=== PATIENT | female | born 1950 | race Caucasian/White ===

== ENCOUNTER 2019-01-08 17:58 | Emergency (ER) | payer MEDICARE, OTHER ==
[~2019-01-08] VITALS: Ht 165.1 cm; Wt 89.8 kg
[~2019-01-08 17:58] MED LIST: CLIN150C2 PO; MECL-106 PO; SULF1TAB35 PO
--- NOTE | 2019-01-08 18:12 | ED Cardiac General ---
History of Present Illness General Stated Complaint: DIZZINESS,HEART PALPITATIONS Source: patient, EMS History of Present Illness Date Seen by Provider: Jan 08, 2019 Time Seen by Provider: 17:59 Initial Comments PT ARRIVES VIA EMS FROM [facility] C/O DIZZINESS AND PALPITATIONS SINCE THIS AFTERNOON NO CHEST PAIN NO SHORTNESS OF BREATH NO SWELLING IN LEGS / FEET C/O SLIGHT NAUSEA AND SLIGHTLY "FOGGY" VISION NO PARESTHESIAS OR MOTOR DEFICITS STARTING TO GET A SLIGHT HEADACHE--STATES SHE HAS CHRONIC HEADACHES BP 210/100 AT URGENT CARE WAS GIVEN 324 MG ASPIRIN AT URGENT CARE BP WAS 225/109, PULSE 88 WITH NSR, O2 SAT 99% ON ROOM AIR FOR EMS PT HAS HISTORY OF HTN, AND HAS BEEN PRESCRIBED MEDICATION IN THE PAST, BUT NOT TAKEN ANY FOR AT LEAST 2 YEARS "HASN'T SEEN A DR IN 2 YEARS" PER PT. STATES SHE USED TO GO TO THE [facility] IN [place], [place]. DOES NOT GIVE A REASON WHY SHE QUIT GOING. "JUST DIDN'T THINK I NEEDED TO" PCP: NONE Allergies and Home Medications Allergies Coded Allergies: No Known Drug Allergies (Unverified , 01/09/15) Home Medications Meclizine HCl 25 Mg Tablet, 25 MG PO Q8H Prescribed by: WILIAN PROCTOR on 11/17/15 1621 Metoprolol/Hydrochlorothiazide 1 Each Tablet, 1 EACH PO BID Prescribed by: BRADY PENA on 01/08/19 1931 Patient Home Medication List Home Medication List Reviewed: Yes Review of Systems Review of Systems Constitutional: see HPI, dizziness EENTM: See HPI Respiratory: No Symptoms Reported Cardiovascular: See HPI; Denies Chest Pain, Denies Edema, Denies Irregular Heart Rate, Denies Lightheadedness; Palpitations; Denies Syncope Gastrointestinal: See HPI, Nausea; Denies Vomiting Genitourinary: No Symptoms Reported Musculoskeletal: no symptoms reported Skin: no symptoms reported Psychiatric/Neurological: See HPI, Headache; Denies Numbness, Denies Paresthesia, Denies Seizure, Denies Tingling, Denies Tremors, Denies Weakness Endocrine: No Symptoms Reported Hematologic/Lymphatic: No Symptoms Reported Past Qfxjktw-Xzpjks-Zlszwe Hx Patient Social History Alcohol Use: Denies Use Recreational Drug Use: No Smoking Status: Never a Smoker Recent Foreign Travel: No Contact w/Someone Who Travel: No Past Medical History Surgeries: Yes ( X 3; HYST/BSO; STOMACH STAPLING / BARIATRIC SURGERY) Abdominal, Appendectomy, Section, Gallbladder, Hysterectomy, Oophor ectomy Respiratory: No Cardiac: Yes Hypertension Neurological: Yes Headaches /Migraines 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 oz. 80.627375on; BMI Method:Stated General Appearance: No Apparent Distress, Obese HEENT: PERRL/EOMI Neck: Full Range of Motion, Normal Inspection, Non Tender, Supple; No Carotid Bruit, No JVD Respiratory: Normal Breath Sounds, No Accessory Muscle Use, No Respiratory Distress Cardiovascular: Regular Rate, Rhythm, No Edema, No JVD, No Murmur, Normal Peripheral Pulses Gastrointestinal: Non Tender, Soft Extremity: Normal Capillary Refill, Normal Inspection, Normal Range of Motion, Non Tender, No Calf Tenderness, No Pedal Edema Neurologic/Psychiatric: Alert, Oriented x3, No Motor/Sensory Deficits, Normal 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, 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 Norm as Tested Skin: Normal Color, Warm/Dry Progress/Results/Core Measures Results/Orders Lab Results Laboratory Tests Test 01/08/19 18:06 01/08/19 18:48 Range/Units White Blood Count 5.5 4.3-11.0 10^3/uL Red Blood Count 4.09 L 4.35-5.85 10^6/uL Hemoglobin 11.8 11.5-16.0 G/DL Hematocrit 37 35-52 % Mean Corpuscular Volume 91 80-99 FL Mean Corpuscular Hemoglobin 29 25-34 PG Mean Corpuscular Hemoglobin Concent 32 32-36 G/DL Red Cell Distribution Width 15.3 H 10.0-14.5 % Platelet Count 349 130-400 10^3/uL Mean Platelet Volume 9.7 7.4-10.4 FL Neutrophils (%) (Auto) 61 42-75 % Lymphocytes (%) (Auto) 28 12-44 % Monocytes (%) (Auto) 8 0-12 % Eosinophils (%) (Auto) 2 0-10 % Basophils (%) (Auto) 1 0-10 % Neutrophils # (Auto) 3.4 1.8-7.8 X 10^3 Lymphocytes # (Auto) 1.6 1.0-4.0 X 10^3 Monocytes # (Auto) 0.4 0.0-1.0 X 10^3 Eosinophils # (Auto) 0.1 0.0-0.3 10^3/uL Basophils # (Auto) 0.0 0.0-0.1 10^3/uL Prothrombin Time 13.0 12.2-14.7 SEC INR Comment 1.0 0.8-1.4 Activated Partial Thromboplast Time 32 24-35 SEC Sodium Level 140 135-145 MMOL/L Potassium Level 3.0 L 3.6-5.0 MMOL/L Chloride Level 101 98-107 MMOL/L Carbon Dioxide Level 26 21-32 MMOL/L Anion Gap 13 5-14 MMOL/L Blood Urea Nitrogen 7 7-18 MG/DL Creatinine 0.73 0.60-1.30 MG/DL Estimat Glomerular Filtration Rate > 60 BUN/Creatinine Ratio 10 Glucose Level 111 H 70-105 MG/DL Calcium Level 9.7 8.5-10.1 MG/DL Corrected Calcium 9.4 8.5-10.1 MG/DL Magnesium Level 1.7 L 1.8-2.4 MG/DL Total Bilirubin 0.2 0.1-1.0 MG/DL Aspartate Amino Transf (AST/SGOT) 22 5-34 U/L Alanine Aminotransferase (ALT/SGPT) 14 0-55 U/L Alkaline Phosphatase 102 40-136 U/L Myoglobin 51.8 10.0-92.0 NG/ML Troponin I < 0.028 <0.028 NG/ML B-Type Natriuretic Peptide 68.4 <100.0 PG/ML Total Protein 7.8 6.4-8.2 GM/DL Albumin 4.4 3.2-4.5 GM/DL Amylase Level 51 25-125 U/L Lipase 26 8-78 U/L Urine Color YELLOW Urine Clarity CLEAR Urine pH 7 5-9 Urine Specific [place] 1.005 L 1.016-1.022 Urine Protein NEGATIVE NEGATIVE Urine Glucose (UA) NEGATIVE NEGATIVE Urine Ketones NEGATIVE NEGATIVE Urine Nitrite NEGATIVE NEGATIVE Urine Bilirubin NEGATIVE NEGATIVE Urine Urobilinogen NORMAL NORMAL MG/DL Urine Leukocyte Esterase NEGATIVE NEGATIVE Urine RBC (Auto) NEGATIVE NEGATIVE Urine RBC NONE /HPF Urine WBC NONE /HPF Urine Squamous Epithelial Cells RARE /HPF Urine Crystals NONE /LPF Urine Bacteria NEGATIVE /HPF Urine Casts NONE /LPF Urine Mucus NEGATIVE /LPF Urine Culture Indicated NO My Orders Orders - BRADY PENA DO Cardiac Profile 1 (01/08/19 17:59) Comprehensive Metabolic Panel (01/08/19 17:59) Myoglobin Serum (01/08/19 17:59) Protime With Inr (01/08/19 17:59) Partial Thromboplastin Time (01/08/19 17:59) O2 (01/08/19 17:59) Monitor-Rhythm Ecg Trace Only (01/08/19 17:59) Lipid Panel (01/09/19 06:00) Ed Iv/Invasive Line Start (01/08/19 17:59) Lipase (01/08/19 17:59) Amylase (01/08/19 17:59) BNP (01/08/19 17:59) Cbc With Automated Diff (01/08/19 17:59) Magnesium (01/08/19 17:59) Chest 1 View, Ap/Pa Only (01/08/19 17:59) Ekg Tracing (01/08/19 17:59) Nitroglycerin Ointment (Nitrobid Ointme (01/08/19 18:15) Acetaminophen Tablet (Tylenol Tablet) (01/08/19 18:15) Ekg Tracing (01/08/19 18:20) Potassium Chloride (Tablet) (Klor Con Ta (01/08/19 19:00) Magnesium 1 Gm/100 Ml Ivpb (Magnesium Cosme (01/08/19 19:00) Labetalol Injection (Normodyne Injection (01/08/19 19:00) Ua Culture If Indicated (01/08/19 18:48) Ondansetron Injection (Zofran Injectio (01/08/19 19:00) Medications Given in ED Current Medications Medications Dose Ordered Sig/Hammad Route Start Time Stop Time Status Last Admin Dose Admin Acetaminophen 1,000 mg ONCE ONCE PO 01/08/19 18:15 01/08/19 18:16 DC 01/08/19 18:16 1,000 MG Labetalol HCl 20 mg ONCE ONCE IV 01/08/19 19:00 01/08/19 19:01 DC 01/08/19 18:58 20 MG Magnesium Sulfate/ Dextrose 100 ml @ 100 mls/hr ONCE ONCE IV 01/08/19 19:00 01/08/19 19:59 DC 01/08/19 18:59 100 MLS/HR Nitroglycerin 1 inch ONCE ONCE TOP 01/08/19 18:15 01/08/19 18:16 DC 01/08/19 18:17 1 INCH Ondansetron HCl 4 mg ONCE ONCE IVP 01/08/19 19:00 01/08/19 19:01 DC 01/08/19 18:58 4 MG Potassium Chloride 20 meq ONCE ONCE PO 01/08/19 19:00 01/08/19 19:01 DC 01/08/19 18:58 20 MEQ Vital Signs/I&O 01/08/19 18:04 Temp 97.9 Pulse 92 Resp 17 B/P (MAP) 212/105 (140) Pulse Ox 100 O2 Delivery Room Air Progress Progress Note : Progress Note BP DOWN WITH MEDICATION--DOWN TO 140'S/90'S PT ASYMPTOMATIC AT THIS TIME, HEADACHE GONE Initial ECG Impression Date: Jan 08, 2019 Initial ECG Impression Time: 18:06 Initial ECG Rate: 91 Initial ECG Rhythm: Normal Sinus Initial ECG Impression: Nonspecific Changes EKG : EKG Time: 18:23 Rate: 86 Rhythm: Normal Sinus ECG Comparisson: Unchanged Diagnostic Imaging Comments CXR--NO ACUTE PROCESS, PER RADIOLOGIST REPORT AT 1849 Reviewed: Reviewed by Me Departure Impression Primary Impression: Uncontrolled hypertension Additional Impressions: Hypomagnesemia Hypokalemia Disposition: 01 HOME, SELF-CARE Condition: Improved Departure-Patient Inst. Referrals: NO,LOCAL PHYSICIAN (PCP/Family) Primary Care Physician Patient Instructions: DASH Diet, High Blood Pressure (DC) Add. Discharge Instructions: ESTABLISH WITH LOCAL DR OF CHOICE, OR YOU MAY GO BACK TO [facility] IN [place]--FOLLOW UP THIS WEEK FOR FURTHER CARE RETURN TO ER IF WORSE Scripts Metoprolol/Hydrochlorothiazide (Metoprolol-Hctz 50-25 mg Tab) 1 Each Tablet 1 EACH PO BID, #30 TAB Prov: BRADY PENA DO 01/08/19 Work/School Note: Local Medical Staff Listing BRADY PENA DO Jan 08, 2019 18:12
[2019-01-08 18:13] LABS: BASOPHILS % (AUTO) 1 % (0-10); EOSINOPHILS # (AUTO) 0.1 10^3/uL (0.0-0.3); EOSINOPHILS % (AUTO) 2 % (0-10); HEMATOCRIT 37 % (35-52); HEMOGLOBIN 11.8 G/DL (11.5-16.0); LYMPHOCYTES # (AUTO) 1.6 X 10^3 (1.0-4.0); LYMPHOCYTES % (AUTO) 28 % (12-44); MEAN CORPUSCULAR HEMOGLOBIN 29 PG (25-34); MEAN CORPUSCULAR HGB CONC 32 G/DL (32-36); MEAN CORPUSCULAR VOLUME 91 FL (80-99); MEAN PLATELET VOLUME 9.7 FL (7.4-10.4); MONOCYTES # (AUTO) 0.4 X 10^3 (0.0-1.0); MONOCYTES % (AUTO) 8 % (0-12); NEUTROPHILS # (AUTO) 3.4 X 10^3 (1.8-7.8); NEUTROPHILS % (AUTO) 61 % (42-75); PLATELET COUNT 349 10^3/uL (130-400); RED CELL DISTRIBUTION WIDTH 15.3 % (10.0-14.5); WHITE BLOOD COUNT 5.5 10^3/uL (4.3-11.0)
[2019-01-08] MEDS ORDERED: ACETAMINOPHEN 500 MG TAB (TYLENOL) PO ONE (18:15)
[2019-01-08] MEDS ORDERED: NITROGLYCERIN 2% OINT 1 GM UNIT DOSE PACKET TOP ONE (18:15)
[2019-01-08 18:32] LABS: ALANINE AMINOTRANSFERASE 14 U/L (0-55); ALBUMIN 4.4 GM/DL (3.2-4.5); ALKALINE PHOSPHATASE 102 U/L (40-136); AMYLASE 51 U/L (25-125); BILIRUBIN,TOTAL 0.2 MG/DL (0.1-1.0); BUN/CREATININE RATIO 10; CALCIUM 9.7 MG/DL (8.5-10.1); CARBON DIOXIDE 26 MMOL/L (21-32); CHLORIDE 101 MMOL/L (98-107); CREATININE SERUM 0.73 MG/DL (0.60-1.30); GFR ESTIMATED > 60; GLUCOSE 111 MG/DL (70-105); LIPASE 26 U/L (8-78); MAGNESIUM 1.7 MG/DL (1.8-2.4); SODIUM 140 MMOL/L (135-145); TOTAL PROTEIN 7.8 GM/DL (6.4-8.2)
--- NOTE | 2019-01-08 18:45 | Diagnostic Imaging Report ---
INDICATION: Heart palpitations. TIME OF EXAM: 06:33 p.m. COMPARISON: No prior studies are available for comparison. FINDINGS: The heart size is normal. The pulmonary vascularity is unremarkable. The lungs are clear. No infiltrate, effusion, or pneumothorax is detected. IMPRESSION: No acute cardiopulmonary process is detected. Dictated by: Dictated on workstation # [id number]
--- NOTE | 2019-01-08 18:45 | NUR ---
Recieved pt report from SERGIO Tovar to assume care of pt @ this time.
[2019-01-08 18:57] LABS: BILIRUBIN,URINE NEGATIVE (NEGATIVE); CLARITY,URINE CLEAR; COLOR,URINE YELLOW; GLUCOSE, URINE (UA) NEGATIVE (NEGATIVE); KETONES,URINE NEGATIVE (NEGATIVE); LEUKOCYTE ESTERASE ,URINE NEGATIVE (NEGATIVE); NITRITE,URINE NEGATIVE (NEGATIVE); PH,URINE 7 (5-9); PROTEIN,URINE NEGATIVE (NEGATIVE); UROBILINOGEN,URINE NORMAL (NORMAL)
[2019-01-08] MEDS ORDERED: LABETALOL HCL 20 MG/4 ML VIAL IV ONE (19:00)
[2019-01-08] MEDS ORDERED: KCL 10 MEQ TAB (MICRO K) PO ONE (19:00)
[2019-01-08] MEDS ORDERED: MAGNESIUM 1 GM/100 ML IVPB 100 ML IV ONE (19:00)
[2019-01-08] MEDS ORDERED: ONDANSETRON 4 MG/2 ML (SDV) Z0FRAN IVP ONE (19:00)
[2019-01-08 19:04] LABS: BACTERIA,URINE NEGATIVE /HPF; SQUAMOUS EPITHELIAL CELL,UR RARE /HPF
[2019-01-08] MEDS ORDERED: METO1TAB10 PO (19:31)
[2019-01-08 20:13] VITALS: BP 146/95
== END 2019-01-08 20:13 | disposition home or self-care (01) ==
LOC: EDUNIT# 17:58 → ER 17:59
DX: I10 Essential (primary) hypertension (principal); E83.42 Hypomagnesemia; E87.6 Hypokalemia; G43.909 Migraine, unspecified, not intractable, without status migrainosus; Z91.14 Patient's other noncompliance with medication regimen; Z90.49 Acquired absence of other specified parts of digestive tract; Z90.710 Acquired absence of both cervix and uterus; Z90.722 Acquired absence of ovaries, bilateral; Z98.84 Bariatric surgery status
CPT/HCPCS: 36415; 71045; 80053; 81000; 82150; 83690; 83735; 83874; 83880; 84484; 85025; 85610; 85730; 93005; 93041; 96365; 96375

== ENCOUNTER 2019-01-09 18:01 | Observation (INO) | payer MEDICARE, OTHER ==
[~2019-01-09] VITALS: Ht 165.1 cm; Wt 95.8 kg
[~2019-01-09 18:01] MED LIST changes: +METO1TAB10 PO
[2019-01-09] MEDS ORDERED: ONDANSETRON 4 MG/2 ML (SDV) Z0FRAN IVP ONE (18:15)
[2019-01-09] MEDS ORDERED: NITROGLYCERIN 2% OINT 1 GM UNIT DOSE PACKET TOP ONE (18:15)
[2019-01-09] MEDS ORDERED: LABETALOL HCL 20 MG/4 ML VIAL IV ONE (18:15)
--- NOTE | 2019-01-09 18:17 | ED Cardiac General ---
History of Present Illness General Chief Complaint: Cardiac/General Problems Stated Complaint: HIGH BP Nursing Triage Note: PT STATES SHE HAS HTN BUT DOES NOT TAKE HER MEDICATION PRESCRIBED. PT WAS SEEN YESTERDAY AND PRESCRIBED MEDICATION. PT STATES HANDS AND FEET ARE CRAMPING. PT STATES NAUSEA. Source: patient History of Present Illness Date Seen by Provider: Jan 09, 2019 Time Seen by Provider: 18:50 Initial Comments PT ARRIVES VIA POV FROM HOME C/O ELEVATED BLOOD PRESSURE--WAS 228/134 AT HOME C/O DIZZINESS C/O NAUSEA, NO VOMITING NO CHEST PAIN NO SHORTNESS OF BREATH NO PALPITATIONS NO SWEATS NO SWELLING IN LEGS/ FEET HANDS AND FEET ARE CRAMPING AND "DRAWING UP" C/O MILD HEADACHE EARLIER--WENT AWAY WITH 2 TYLENOL + BENADRYL NO VISION CHANGES TODAY NO PARESTHESIAS OR MOTOR DEFICITS PT HAS LONG HISTORY OF HTN AND OVER 2 YEARS AGO, JUST DECIDED TO QUIT TAKING HER BP MEDICATION AND QUIT GOING TO THE DR--NO PARTICULAR REASON "JUST DIDN'T THINK I NEEDED TO" PT WAS IN ER LAST PM FOR SAME, AND WAS GIVEN MEDICATIONS AND BP DOWN SIGNIFICANTLY AND PT WAS SYMPTOM-FREE PT WAS SENT HOME WITH RX FOR METOPROLOL + HCTZ--STATES SHE TOOK FIRST DOSE AROUND 1030 THIS AM STATES SHE FELT GREAT WHEN SHE LEFT LAST NIGHT AND FELT GREAT THIS AM, THEN STARTED FEELING BAD AROUND 1430 TODAY. PCP: [facility] Allergies and Home Medications Allergies Coded Allergies: No Known Drug Allergies (Unverified , 01/09/15) Home Medications Meclizine HCl 25 Mg Tablet, 25 MG PO Q8H Prescribed by: WILIAN PROCTOR on 11/17/15 1621 Metoprolol/Hydrochlorothiazide 1 Each Tablet, 1 EACH PO BID Prescribed by: BRADY PENA on 01/08/19 1931 Patient Home Medication List Home Medication List Reviewed: Yes Review of Systems Review of Systems Constitutional: see HPI, dizziness, malaise EENTM: No Symptoms Reported; No Blurred Vision Respiratory: No Symptoms Reported; Denies Shortness of Air Cardiovascular: Denies Chest Pain; Edema (AT TIMES, BUT NOT NOW. ); Denies Irregular Heart Rate; Lightheadedness; Denies Palpitations, Denies Syncope Gastrointestinal: See HPI; Denies Abdominal Pain; Nausea; Denies Vomiting Genitourinary: No Symptoms Reported Musculoskeletal: no symptoms reported Skin: no symptoms reported Psychiatric/Neurological: See HPI, Headache; Denies Numbness, Denies Paresthesia, Denies Seizure, Denies Tingling, Denies Tremors, Denies Weakness Endocrine: No Symptoms Reported Hematologic/Lymphatic: No Symptoms Reported Past Fsscuim-Nqaxnd-Joonuj Hx Past Med/Social Hx: Reviewed and Corrections made Patient Social History Alcohol Use: Denies Use Recreational Drug Use: No Smoking Status: Never a Smoker 2nd Hand Smoke Exposure: No Recent Foreign Travel: No Contact w/Someone Who Travel: No Recent Infectious Disease Expo: No Recent Hopitalizations: No Physical Abuse: No Sexual Abuse: No Mistreated: No Fear: No Seasonal Allergies Seasonal Allergies: No Past Medical History Surgeries: Yes ( X 3; HYST/BSO; STOMACH STAPLING / BARIATRIC SURGERY) Abdominal, Appendectomy, Section, Gallbladder, Hysterectomy, Oophorectomy Respiratory: No Cardiac: Yes Hypertension Neurological: Yes Headaches /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 oz. 89.760122wc; 30.18 BMI Method:Stated General Appearance: No Apparent Distress, WD/WN HEENT: PERRL/EOMI, TMs Normal, Normal ENT Inspection, Pharynx Normal, Moist Mucous Membranes Neck: Full Range of Motion, Normal Inspection, Non Tender, Supple; No Carotid Bruit, No JVD Respiratory: Normal Breath Sounds, No Accessory Muscle Use, No Respiratory Distress Cardiovascular: Regular Rate, Rhythm, No Edema, No JVD, No Murmur, Normal Peripheral Pulses Gastrointestinal: No Pulsatile Mass, Non Tender, Soft Extremity: Normal Capillary Refill, Normal Inspection, Normal Range of Motion, Non Tender, No Calf Tenderness, No Pedal Edema Neurologic/Psychiatric: Alert, Oriented x3, No Motor/Sensory Deficits, veneer layer II- XII Norm as Tested, Other (MILDLY ANXIOUS) Skin: Normal Color, Warm/Dry Progress/Results/Core Measures Results/Orders Lab Results Laboratory Tests Test 01/09/19 18:15 Range/Units White Blood Count 7.3 4.3-11.0 10^3/uL Red Blood Count 4.26 L 4.35-5.85 10^6/uL Hemoglobin 12.4 11.5-16.0 G/DL Hematocrit 39 35-52 % Mean Corpuscular Volume 91 80-99 FL Mean Corpuscular Hemoglobin 29 25-34 PG Mean Corpuscular Hemoglobin Concent 32 32-36 G/DL Red Cell Distribution Width 15.1 H 10.0-14.5 % Platelet Count 353 130-400 10^3/uL Mean Platelet Volume 10.0 7.4-10.4 FL Neutrophils (%) (Auto) 66 42-75 % Lymphocytes (%) (Auto) 24 12-44 % Monocytes (%) (Auto) 7 0-12 % Eosinophils (%) (Auto) 3 0-10 % Basophils (%) (Auto) 1 0-10 % Neutrophils # (Auto) 4.8 1.8-7.8 X 10^3 Lymphocytes # (Auto) 1.8 1.0-4.0 X 10^3 Monocytes # (Auto) 0.5 0.0-1.0 X 10^3 Eosinophils # (Auto) 0.2 0.0-0.3 10^3/uL Basophils # (Auto) 0.1 0.0-0.1 10^3/uL Prothrombin Time 12.2 12.2-14.7 SEC INR Comment 0.9 0.8-1.4 Activated Partial Thromboplast Time 30 24-35 SEC Sodium Level 138 135-145 MMOL/L Potassium Level 3.3 L 3.6-5.0 MMOL/L Chloride Level 98 98-107 MMOL/L Carbon Dioxide Level 27 21-32 MMOL/L Anion Gap 13 5-14 MMOL/L Blood Urea Nitrogen 7 7-18 MG/DL Creatinine 0.80 0.60-1.30 MG/DL Estimat Glomerular Filtration Rate > 60 BUN/Creatinine Ratio 9 Glucose Level 119 H 70-105 MG/DL Calcium Level 10.4 H 8.5-10.1 MG/DL Corrected Calcium 10.0 8.5-10.1 MG/DL Magnesium Level 2.0 1.8-2.4 MG/DL Total Bilirubin 0.2 0.1-1.0 MG/DL Aspartate Amino Transf (AST/SGOT) 20 5-34 U/L Alanine Aminotransferase (ALT/SGPT) 14 0-55 U/L Alkaline Phosphatase 104 40-136 U/L Troponin I < 0.028 <0.028 NG/ML B-Type Natriuretic Peptide 99.5 <100.0 PG/ML Total Protein 8.0 6.4-8.2 GM/DL Albumin 4.5 3.2-4.5 GM/DL My Orders Orders - BRADY PENA DO Ed Iv/Invasive Line Start (01/09/19 18:10) Ekg Tracing (01/09/19 18:10) Monitor-Rhythm Ecg Trace Only (01/09/19 18:10) Ct Head Wo-R/O Stroke (01/09/19 18:10) BNP (01/09/19 18:10) Cbc With Automated Diff (01/09/19 18:10) Comprehensive Metabolic Panel (01/09/19 18:10) Magnesium (01/09/19 18:10) Protime With Inr (01/09/19 18:10) Partial Thromboplastin Time (01/09/19 18:10) Troponin I (01/09/19 18:10) Ondansetron Injection (Zofran Injectio (01/09/19 18:15) Nitroglycerin Ointment (Nitrobid Ointme (01/09/19 18:15) Labetalol Injection (Normodyne Injection (01/09/19 18:15) Potassium Chloride (Tablet) (Klor Con Ta (01/09/19 19:00) Ct Angio Head/Neck (01/09/19 19:06) Hydralazine Injection (Apresoline Inject (01/09/19 19:30) Iohexol Injection (Omnipaque 350 Mg/Ml 1 (01/09/19 19:45) Received Contrast (Hold Metformin- Contr (01/09/19 19:45) Ns (Ivpb) (Sodium Chloride 0.9% Ivpb Bag (01/09/19 19:45) Medications Given in ED Current Medications Medications Dose Ordered Sig/Hammad Route Start Time Stop Time Status Last Admin Dose Admin Hydralazine HCl 10 mg ONCE ONCE IV 01/09/19 19:30 01/09/19 19:31 DC 01/09/19 19:25 10 MG Iohexol 75 ml ONCE ONCE IV 01/09/19 19:45 01/09/19 19:46 DC 01/09/19 21:07 75 ML Labetalol HCl 20 mg ONCE ONCE IV 01/09/19 18:15 01/09/19 18:16 DC 01/09/19 18:22 20 MG Nitroglycerin 1 inch ONCE ONCE TOP 01/09/19 18:15 01/09/19 18:16 DC 01/09/19 18:17 1 INCH Ondansetron HCl 8 mg ONCE ONCE IVP 01/09/19 18:15 01/09/19 18:16 DC 01/09/19 18:22 8 MG Potassium Chloride 40 meq ONCE ONCE PO 01/09/19 19:00 01/09/19 19:01 DC 01/09/19 19:25 40 MEQ Sodium Chloride 100 ml ONCE ONCE IV 01/09/19 19:45 01/09/19 19:46 DC 01/09/19 21:07 100 ML Vital Signs/I&O 01/09/19 18:07 Temp 96.2 Pulse 72 Resp 18 B/P (MAP) 231/118 (155) Pulse Ox 100 O2 Delivery Room Air Blood Pressure Mean: 155 Progress Progress Note : Progress Note GIVEN NITROPASTE AND LABETALOL AND HYDRALAZINE--BP DOWN TO 140'S/70'S AND SYMPTOMS SIGNIFICANTLY IMPROVED NAUSEA RESOLVED WITH ZOFRAN PT C/O MILD HEADACHE--GIVEN TYLENOL AND HEADACHE IMPROVING AT TIME OF ADMIT. PT HAD MILD CARPAL-PEDAL SPASMS ON ARRIVAL, BUT WERE BRIEF AND WENT AWAY SHORTLY AFTER ARRIVAL, AND DID NOT RETURN. Initial ECG Impression Date: Jan 09, 2019 Initial ECG Impression Time: 18:30 Initial ECG Rate: 64 Initial ECG Rhythm: Normal Sinus Initial ECG Comparisson: Unchanged Diagnostic Imaging Comments CT HEAD--PATCHY BILATERAL AREAS OF HYPOATTENUATION IN SUBCORTICAL AND PERIVENTRICULAR WHITE MATTER--C/W CHRONIC MICROVASCULAR DISEASE, PROGRESSED FROM 2016. NO ACUTE FINDINGS--PER RADIOLOGIST REPORT AT 1905 CT ANGIOGRAM HEAD/NECK--NO ACUTE PROCESS, NO LARGE VESSEL OCCLUSION, NO HIGH GRADE STENOSIS OR ANEURYSM--PER RADIOLOGIST REPORT AT 2115 Reviewed: Reviewed by Me Departure Communication (Admissions) 2126--SPOKE WITH DR. CHAMBERS, HOSPITALIST, ACCEPTS PT FOR ADMIT TO ICU. WOULD LIKE CARDIOLOGY CONSULTED. 2127--SPOKE WITH DR. HEATON, STAPLING MACHINE OPERATOR, HE ADVISES CLONIDINE P.O. AND START PT ON NITROGLYCERINE DRIP Impression Primary Impression: Uncontrolled hypertension Additional Impressions: Hypokalemia Non-compliance Disposition: ADMITTED INPATIENT Condition: Improved Admissions Decision to Admit Reason: Admit from ER (General) Decision to Admit/Date: Jan 09, 2019 Time/Decision to Admit Time: 21:30 Departure-Patient Inst. Referrals: NO,LOCAL PHYSICIAN (PCP/Family) Primary Care Physician BRADY PENA DO Jan 09, 2019 18:17
[2019-01-09 18:36] LABS: BASOPHILS # (AUTO) 0.1 10^3/uL (0.0-0.1); BASOPHILS % (AUTO) 1 % (0-10); EOSINOPHILS # (AUTO) 0.2 10^3/uL (0.0-0.3); EOSINOPHILS % (AUTO) 3 % (0-10); HEMATOCRIT 39 % (35-52); HEMOGLOBIN 12.4 G/DL (11.5-16.0); LYMPHOCYTES # (AUTO) 1.8 X 10^3 (1.0-4.0); LYMPHOCYTES % (AUTO) 24 % (12-44); MEAN CORPUSCULAR HEMOGLOBIN 29 PG (25-34); MEAN CORPUSCULAR HGB CONC 32 G/DL (32-36); MEAN CORPUSCULAR VOLUME 91 FL (80-99); MONOCYTES # (AUTO) 0.5 X 10^3 (0.0-1.0); MONOCYTES % (AUTO) 7 % (0-12); NEUTROPHILS # (AUTO) 4.8 X 10^3 (1.8-7.8); NEUTROPHILS % (AUTO) 66 % (42-75); PLATELET COUNT 353 10^3/uL (130-400); RED CELL DISTRIBUTION WIDTH 15.1 % (10.0-14.5); WHITE BLOOD COUNT 7.3 10^3/uL (4.3-11.0)
[2019-01-09 18:50] LABS: INR 0.9 (0.8-1.4); PROTHROMBIN TIME PATIENT 12.2 SEC (12.2-14.7)
[2019-01-09 18:52] LABS: ALANINE AMINOTRANSFERASE 14 U/L (0-55); ALBUMIN 4.5 GM/DL (3.2-4.5); ALKALINE PHOSPHATASE 104 U/L (40-136); BILIRUBIN,TOTAL 0.2 MG/DL (0.1-1.0); BUN/CREATININE RATIO 9; CALCIUM 10.4 MG/DL (8.5-10.1); CARBON DIOXIDE 27 MMOL/L (21-32); CHLORIDE 98 MMOL/L (98-107); GFR ESTIMATED > 60; GLUCOSE 119 MG/DL (70-105); POTASSIUM 3.3 MMOL/L (3.6-5.0); SODIUM 138 MMOL/L (135-145)
--- NOTE | 2019-01-09 18:57 | Diagnostic Imaging Report ---
PROCEDURE: CT head wo r/o stroke. TECHNIQUE: Multiple contiguous axial images were obtained through the brain without the use of intravenous contrast. Auto Exposure Controls were utilized during the CT exam to meet ALARA standards for radiation dose reduction. INDICATION: High blood pressure. Headache. Blurred vision and dizziness. Evaluate for stroke. COMPARISON: Comparison is made with a prior head CT from November 17, 2015. FINDINGS: There are patchy regions of hypoattenuation demonstrated throughout the white matter bilaterally that are most compatible with microvascular changes. There are no findings of territorial loss of la-white differentiation or evidence of abnormal hypodensity within the basal ganglia or within the vijay. There are no findings of hemorrhage. There is no mass effect or shift. There is no hydrocephalus. There is no abnormal extra-axial fluid collection. The basilar cisterns are patent. Posterior fossa demonstrates no acute process. No focal hyperdense blood vessel is evident. The mastoid air cells appear clear. The paranasal sinuses appear clear. The orbital contents are unremarkable. There is no acute calvarial abnormality. IMPRESSION: 1. Patchy bilateral regions of hypoattenuation within the subcortical and periventricular white matter. There are in a distribution most compatible with the sequela of chronic microvascular disease. These are progressed compared to 2016. 2. There are no findings of territorial loss of la-white differentiation to suggest acute ischemia by CT. If there is continued clinical concern for acute ischemia, consider MRI. Dictated by: Dictated on workstation # [id number]
[2019-01-09] MEDS ORDERED: KCL 10 MEQ TAB (MICRO K) PO ONE (19:00)
[2019-01-09] MEDS ORDERED: hydrALAZINE (APESOLINE) 20 MG/ML VIAL IV ONE (19:30)
[2019-01-09] MEDS ORDERED: IOHEXOL 350 MG/ML 100 ML (OMNIPAQUE 350) VIAL IV ONE (19:45)
[2019-01-09] MEDS ORDERED: NS 100 ML (IVPB) BAG IV ONE (19:45)
[2019-01-09] MEDS ORDERED: HOLD METFORMIN - RECEIVED CONTRAST 20 ML VIAL IV SCH (19:45)
--- NOTE | 2019-01-09 21:11 | Diagnostic Imaging Report ---
PROCEDURE: CT angiography of the head and CT angiography of the neck with and without contrast. TECHNIQUE: Contiguous noncontrast images were obtained from the skull base through the vertex. After intravenous contrast administration, helical CT angiography of the neck was performed. Source data was reformatted into 3D MIP projections. Delayed post contrast acquisition was also obtained. Auto Exposure Controls were utilized during the CT exam to meet ALARA standards for radiation dose reduction. DATE: January 09, 2019. INDICATION: 69-year-old female, hypertension, headache, blurred vision, dizziness. COMPARISON: CT head January 09, 2019. FINDINGS: The left common carotid artery is patent. There are calcifications at the left carotid bifurcation. The left internal carotid artery is patent without high-grade stenosis. The left middle cerebral artery is patent. The left anterior cerebral artery is patent. There is a patent anterior communicating artery. The right anterior cerebral artery is patent. The right middle cerebral artery is patent. The right internal carotid artery is patent. There are calcifications at the right carotid bifurcation. The right common carotid artery is patent. There is no right internal carotid artery stenosis. The left vertebral artery is conventional in origin. There are limitations for assessment of the cervical segment of the left vertebral artery, given the timing of the contrast bolus at this level. The left vertebral artery does appear to be patent and dominant. The basilar artery is patent. The right and left posterior inferior cerebellar arteries are patent. The right posterior cerebral artery is patent. The left posterior cerebral artery is patent. There is no identified aneurysm. The visualized portions of the lungs are clear. Left thyroid nodule on axial image 52 which measures 8 mm in size. There is a 9 mm right thyroid nodule on axial image 75. There are multilevel degenerative changes of the cervical spine. IMPRESSION: Patent arterial head and neck vasculature without evidence of high-grade stenosis, occlusion or aneurysm. Dictated by: Dictated on workstation # [id number]
[2019-01-09] MEDS ORDERED: cloNIDine 0.1 MG (CATAPRES) TAB PO ONE (21:30)
[2019-01-09] MEDS ORDERED: ACETAMINOPHEN 500 MG TAB (TYLENOL) PO ONE (21:45)
--- OUTSIDE RECORDS SUMMARY | 2019-01-09 22:00 | XMS REPORT | Continuity of Care Document ---
Author Organization Unknown Address Unknown Phone Unavailable Allergies Active Description Code Type Severity Reaction Onset Reported/Identified Relationship to Patient Clinical Status Yes No Known Drug Allergies [id number] Drug Allergy Unknown N/A 01/09/2015 Medications There is no data. Problems Date Dx Coded Attending Type Code Diagnosis Diagnosed By 01/09/2015 ASH MUSA APRN Ot 682.6 CELLULITIS OF LEG 01/11/2015 ASH MUSA APRN Ot 682.6 CELLULITIS OF LEG 01/11/2015 ASH MUSA APRN Ot V67.9 FOLLOW-UP EXAM NOS 11/17/2015 WILIAN PROCTOR MD Ot E87.6 HYPOKALEMIA 11/17/2015 WILIAN PROCTOR MD Ot R42 DIZZINESS AND GIDDINESS 11/18/2015 WILIAN PROCTOR MD Ot E87.6 HYPOKALEMIA 11/18/2015 WILIAN PROCTOR MD Ot R42 DIZZINESS AND GIDDINESS 12/04/2015 WILIAN PROCTOR MD Ot E87.6 HYPOKALEMIA 12/04/2015 WILIAN PROCTOR MD, Ot R42 DIZZINESS AND GIDDINESS Procedures There is no data. Results Test Result Range Complete blood count (CBC) with automated white blood cell (WBC) differential - 01/08/19 18:06 Blood leukocytes automated count (number/volume) 5.5 10*3/uL 4.3-11.0 Blood erythrocytes automated count (number/volume) 4.09 10*6/uL 4.35-5.85 Venous blood hemoglobin measurement (mass/volume) 11.8 g/dL 11.5-16.0 Blood hematocrit (volume fraction) 37 % 35-52 Automated erythrocyte mean corpuscular volume 91 [foz_us] 80-99 Automated erythrocyte mean corpuscular hemoglobin (mass per erythrocyte) 29 pg 25-34 Automated erythrocyte mean corpuscular hemoglobin concentration measurement (mass/volume) 32 g/dL 32-36 Automated erythrocyte distribution width ratio 15.3 % 10.0- 14.5 Automated blood platelet count (count/volume) 349 10*3/uL 130-400 Automated blood platelet mean volume measurement 9.7 [foz_us] 7.4-10.4 Automated blood neutrophils/100 leukocytes 61 % 42-75 Automated blood lymphocytes/100 leukocytes 28 % 12-44 Blood monocytes/100 leukocytes 8 % 0-12 Automated blood eosinophils/100 leukocytes 2 % 0-10 Automated blood basophils/100 leukocytes 1 % 0-10 Blood neutrophils automated count (number/volume) 3.4 10*3 1.8-7.8 Blood lymphocytes automated count (number/volume) 1.6 10*3 1.0-4.0 Blood monocytes automated count (number/volume) 0.4 10*3 0.0- 1.0 Automated eosinophil count 0.1 10*3/uL 0.0-0.3 Automated blood basophil count (count/volume) 0.0 10*3/uL 0.0-0.1 Comprehensive metabolic panel - 01/08/19 18:06 Serum or plasma sodium measurement (moles/volume) 140 mmol/L 135-145 Serum or plasma potassium measurement (moles/volume) 3.0 mmol/L 3.6-5.0 Serum or plasma chloride measurement (moles/volume) 101 mmol/L 98-107 Carbon dioxide 26 mmol/L 21-32 Serum or plasma anion gap determination (moles/volume) 13 mmol/L 5-14 Serum or plasma urea nitrogen measurement (mass/volume) 7 mg/dL 7-18 Serum or plasma creatinine measurement (mass/volume) 0.73 mg/dL 0.60-1.30 Serum or plasma urea nitrogen/creatinine mass ratio 10 NRG Serum or plasma creatinine measurement with calculation of estimated glomerular filtration rate > NRG Serum or plasma glucose measurement (mass/volume) 111 mg/dL 70-105 Serum or plasma calcium measurement (mass/volume) 9.7 mg/dL 8.5-10.1 Serum or plasma total bilirubin measurement (mass/volume) 0.2 mg/dL 0.1-1.0 Serum or plasma alkaline phosphatase measurement (enzymatic activity/volume) 102 U/L 40-136 Serum or plasma aspartate aminotransferase measurement (enzymatic activity/volume) 22 U/L 5-34 Serum or plasma alanine aminotransferase measurement (enzymatic activity/volume) 14 U/L 0-55 Serum or plasma protein measurement (mass/volume) 7.8 g/dL 6.4-8.2 Serum or plasma albumin measurement (mass/volume) 4.4 g/dL 3.2-4.5 CALCIUM CORRECTED 9.4 mg/dL 8.5-10.1 Magnesium - 01/08/19 18:06 Magnesium 1.7 mg/dL 1.8-2.4 Serum or plasma troponin i.cardiac measurement (mass/volume) - 01/08/19 18:06 Serum or plasma troponin i.cardiac measurement (mass/volume) < ng/mL <0.028 Myoglobin, serum - 01/08/19 18:06 Myoglobin, serum 51.8 ng/mL 10.0-92.0 PT panel in platelet poor plasma by coagulation assay - 01/08/19 18:06 Prothrombin time (PT) in platelet poor plasma by coagulation assay 13.0 s 12.2-14.7 INR in platelet poor plasma or blood by coagulation assay 1.0 0.8-1.4 Activated partial thromboplastin time (aPTT) in platelet poor plasma bycoagulation assay - 01/08/19 18:06 Activated partial thromboplastin time (aPTT) in platelet poor plasma bycoagulation assay 32 s 24-35 Serum or plasma amylase measurement (enzymatic activity/volume) - 01/08/19 18:06 Serum or plasma amylase measurement (enzymatic activity/volume) 51 U/L 25-125 Lipase - 01/08/19 18:06 Lipase 26 U/L 8-78 Serum or plasma lithium measurement (moles/volume) - 01/08/19 18:06 BNP PT 68.4 pg/mL <100.0 Complete urinalysis with reflex to culture - 01/08/19 18:48 Urine color determination YELLOW NRG Urine clarity determination CLEAR NRG Urine pH measurement by test strip 7 5-9 Specific gravity of urine by test strip 1.005 1.016-1.022 Urine protein assay by test strip, semi-quantitative NEGATIVE NEGATIVE Urine glucose detection by automated test strip NEGATIVE NEGATIVE Erythrocytes detection in urine sediment by light microscopy NEGATIVE NEGATIVE Urine ketones detection by automated test strip NEGATIVE NEGATIVE Urine nitrite detection by test strip NEGATIVE NEGATIVE Urine total bilirubin detection by test strip NEGATIVE NEGATIVE Urine urobilinogen measurement by automated test strip (mass/volume) NORMAL NORMAL Urine leukocyte esterase detection by dipstick NEGATIVE NEGATIVE Automated urine sediment erythrocyte count by microscopy (number/high power field) NONE NRG Automated urine sediment leukocyte count by microscopy (number/high power field) NONE NRG Bacteria detection in urine sediment by light microscopy NEGATIVE NRG Squamous epithelial cells detection in urine sediment by light microscopy RARE NRG Crystals detection in urine sediment by light microscopy NONE NRG Casts detection in urine sediment by light microscopy NONE NRG Mucus detection in urine sediment by light microscopy NEGATIVE NRG Complete urinalysis with reflex to culture NO NRG Encounters ACCT No. Visit Date/Time Discharge Status Pt. Type Provider Facility Loc./Unit Complaint [id number] 01/08/2019 17:59:00 01/08/2019 20:13:00 DIS Emergency BRADY PENA DO [facility] ER DIZZINESS,HEART PALPITATIONS [id number] 11/17/2015 12:01:00 11/17/2015 16:30:00 DIS Emergency WILIAN PROCTOR MD [facility] ER DIZZY, BLURRED VISION [id number] 01/11/2015 12:26:00 01/11/2015 13:20:00 DIS Emergency ASH MUSA APRN [facility] ER [id number] 01/09/2015 15:38:00 01/09/2015 16:43:00 DIS Emergency ASH MUSA APRN [facility] ER
[2019-01-09] MEDS ORDERED: NITRO DRIP 25000 MCG/D5W 250 ML IV ONE (22:37)
[2019-01-09 22:39] VITALS: BP 187/87
[2019-01-09 22:45] VITALS: BP 187/87
[2019-01-09] MEDS ORDERED: NITROGLYCERIN DRIP 25 MG/250 ML D5W (PRE-MIX) IV SCH (22:45)
[2019-01-09 23:00] VITALS: BP 144/95
[2019-01-09 23:15] VITALS: BP 123/71
[2019-01-09 23:30] VITALS: BP 142/74
[2019-01-09] MEDS ORDERED: POTASSIUM CL 10MEQ/50ML IVPB 200 ML IV ONE (23:35)
[2019-01-09] MEDS ORDERED: NS IV 500 ML 500 ML ONE (23:40)
[2019-01-09 23:45] VITALS: BP 129/80
[2019-01-10] VITALS (14 sets, daily range): BP systolic 100–151; BP diastolic 58–79
[2019-01-10] MEDS ORDERED: LACTATED RINGERS 0 ML IV ONE (00:18)
[2019-01-10] MEDS: POTASSIUM CL 10MEQ/50ML IVPB 50 ML IV SCH ×4 (01:00→02:45)
[2019-01-10 02:52] LABS: BASOPHILS % (AUTO) 1 % (0-10); EOSINOPHILS # (AUTO) 0.1 10^3/uL (0.0-0.3); EOSINOPHILS % (AUTO) 1 % (0-10); HEMATOCRIT 36 % (35-52); HEMOGLOBIN 11.5 G/DL (11.5-16.0); LYMPHOCYTES % (AUTO) 31 % (12-44); MEAN CORPUSCULAR HEMOGLOBIN 29 PG (25-34); MEAN CORPUSCULAR HGB CONC 32 G/DL (32-36); MEAN CORPUSCULAR VOLUME 91 FL (80-99); MEAN PLATELET VOLUME 9.9 FL (7.4-10.4); MONOCYTES # (AUTO) 0.6 X 10^3 (0.0-1.0); MONOCYTES % (AUTO) 8 % (0-12); NEUTROPHILS # (AUTO) 3.9 X 10^3 (1.8-7.8); NEUTROPHILS % (AUTO) 59 % (42-75); PLATELET COUNT 319 10^3/uL (130-400); RED CELL DISTRIBUTION WIDTH 15.1 % (10.0-14.5); WHITE BLOOD COUNT 6.6 10^3/uL (4.3-11.0)
[2019-01-10] MEDS ORDERED: KETOROLAC 15 MG/ML VIAL IV ONE (03:00)
[2019-01-10 03:13] LABS: ALANINE AMINOTRANSFERASE 15 U/L (0-55); ALBUMIN 3.8 GM/DL (3.2-4.5); ALKALINE PHOSPHATASE 85 U/L (40-136); BILIRUBIN,TOTAL 0.2 MG/DL (0.1-1.0); BUN/CREATININE RATIO 8; CALCIUM 9.6 MG/DL (8.5-10.1); CARBON DIOXIDE 23 MMOL/L (21-32); CHLORIDE 102 MMOL/L (98-107); CREATININE SERUM 0.71 MG/DL (0.60-1.30); GFR ESTIMATED > 60; GLUCOSE 110 MG/DL (70-105); MAGNESIUM 2.1 MG/DL (1.8-2.4); PHOSPHORUS 3.3 MG/DL (2.3-4.7); POTASSIUM 4.2 MMOL/L (3.6-5.0); SODIUM 138 MMOL/L (135-145); TOTAL PROTEIN 6.9 GM/DL (6.4-8.2)
[2019-01-10] MEDS: ONDANSETRON 4 MG/2 ML (SDV) Z0FRAN IV PRN ×3 (03:48→18:04)
[2019-01-10] MEDS ORDERED: morphine INJ 4 MG/ML 1 ML (VIAL/SYRINGE) ONE (04:34)
[2019-01-10] MEDS ORDERED: morphine INJ 10 MG/ML 1ML (SYR OR VIAL) IVP STA (04:49)
[2019-01-10] MEDS ORDERED: MAGNESIUM 1 GM/D5W 100 ML IVPB IV SCH (05:15)
[2019-01-10] MEDS ORDERED: CALCIUM GLUCONATE 1 GM/NS 50 ML IV ONE ×2 (05:15)
--- NOTE | 2019-01-10 05:58 | Pulmonary Consultation ---
History of Present Illness History of Present Illness Date of Consultation 01/10/19 05:53 Date of Admission Allergies and Home Medications Allergies Coded Allergies: No Known Drug Allergies (Unverified , 01/09/15) Home Medications Meclizine HCl 25 Mg Tablet, 25 MG PO Q8H Prescribed by: WILIAN PROCTOR on 11/17/15 1621 Metoprolol/Hydrochlorothiazide 1 Each Tablet, 1 EACH PO BID Prescribed by: BRADY PENA on 01/08/19 1931 Past Pwraxmb-Oklnil-Kuzapz Hx Past Med/Social Hx: Reviewed and Corrections made Patient Social History Alcohol Use: Denies Use Recreational Drug Use: No Smoking Status: Never a Smoker 2nd Hand Smoke Exposure: No Recent Foreign Travel: No Contact w/Someone Who Travel: No Recent Infectious Disease Expo: No Recent Hopitalizations: No Physical Abuse: No Sexual Abuse: No Mistreated: No Fear: No Immunizations Up To Date Date of Pneumonia Vaccine: Mar 11, 2016 Seasonal Allergies Seasonal Allergies: No Past Medical History Surgeries: Yes ( X 3; HYST/BSO; STOMACH STAPLING / BARIATRIC SURGERY) Abdominal, Appendectomy, Section, Gallbladder, Hysterectomy, Oophorectomy Respiratory: No Cardiac: Yes Hypertension Neurological: Yes Headaches /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 8.0oz. 94.874852je; 34.7 BMI Method:Stated Exam Exam Vital Signs Date Time Temp Pulse Resp B/P (MAP) Pulse Ox O2 Delivery O2 Flow Rate FiO2 01/10/19 05:00 71 14 113/58 (76) 94 Room Air 01/10/19 04:00 97.7 01/10/19 04:00 71 16 125/66 (85) 95 Room Air 01/10/19 03:48 97.2 01/10/19 03:00 72 16 112/65 (81) 96 Room Air 01/10/19 02:00 66 11 107/65 (79) 97 Room Air 01/10/19 01:00 63 01/10/19 01:00 63 16 109/63 (78) 96 Room Air 01/10/19 00:30 67 13 115/66 (82) 95 Room Air 01/10/19 00:00 69 8 130/79 (96) 98 Room Air 01/09/19 23:58 97.7 01/09/19 23:45 69 14 129/80 (96) 97 Room Air 01/09/19 23:30 73 11 142/74 (96) 98 Room Air 01/09/19 23:15 78 14 123/71 (88) 97 Room Air 01/09/19 23:00 75 144/95 (111) 96 Room Air 01/09/19 22:54 187/87 01/09/19 22:45 71 6 187/87 (120) 97 Room Air 01/09/19 22:41 73 01/09/19 22:39 98.3 75 13 187/87 (120) 97 Room Air 01/09/19 22:30 96.2 72 18 231/118 (155) 100 01/09/19 18:07 96.2 72 18 231/118 (155) 100 Room Air I & O 01/10/19 07:00 Intake Total 20 ml Output Total 500 ml Balance -480 ml Height & Weight Height: 5'5.00" Weight: 208lbs. 8.0oz. 94.301735tn; 34.7 BMI Method:Stated General Appearance: No Apparent Distress, WD/WN HEENT: PERRL/EOMI, TMs Normal, Normal ENT Inspection, Pharynx Normal, Moist Mucous Membranes Neck: Full Range of Motion, Normal Inspection, Non Tender, Supple; No Carotid Bruit, No JVD Respiratory: Normal Breath Sounds, No Accessory Muscle Use, No Respiratory Distress Cardiovascular: Regular Rate, Rhythm, No Edema, No JVD, No Murmur, Normal Peripheral Pulses Capillary Refill: Less Than 3 Seconds Extremity: Normal Capillary Refill, Normal Inspection, Normal Range of Motion, Non Tender, No Calf Tenderness, No Pedal Edema Neurologic/Psychiatric: Alert, Oriented x3, No Motor/Sensory Deficits, climatologist II- XII Norm as Tested, Other (MILDLY ANXIOUS) Skin: Normal Color, Warm/Dry Results Lab Laboratory Tests 01/09/19 18:15 01/10/19 02:40 Assessment/Plan Assessment/Plan HTN Urgency -restart home meds LIZBETH,ANCELMO M DO Jan 10, 2019 05:58
[2019-01-10] MEDS ORDERED: MAGNESIUM 1 GM/100 ML IVPB 100 ML IV SCH (06:00)
[2019-01-10] MEDS ORDERED: hydrALAZINE (APESOLINE) 20 MG/ML VIAL IV PRN (06:00)
[2019-01-10] MEDS ORDERED: KCL 20 MEQ TAB (K-DUR) PO SCH (06:00)
[2019-01-10] MEDS ORDERED: POTASSIUM CL 10MEQ/50ML IVPB 50 ML IV SCH (06:00)
--- NOTE | 2019-01-10 06:32 | Diagnostic Imaging Report ---
INDICATION: Shortness of breath. Portable chest 4:04 AM FINDINGS: Heart size and pulmonary vascularity are normal. Lungs are clear. There are no effusions or pneumothoraces. IMPRESSION: Negative chest. Dictated by: Dictated on workstation # [id number]
--- NOTE | 2019-01-10 07:56 | Consultation-Cardiology ---
HPI-Cardiology Cardiology Consultation Date of Consultation 01/10/19 Date of Admission Time Seen by Provider: 07:51 Indication: Hypertension HPI 69 years old lady with history of hypertension, had multiple surgeries in the remote past, has not taken any blood pressure medication for at least 2 years, started to have nausea and dizziness then went to the emergency room and noted t o be severely hypertensive, she was started on medication, on the next day she continued to have episode of dizziness and nausea, her blood pressure was significantly elevated and return to the emergency room for evaluation where she was admitted. She was treated aggressively and had improvement in her blood pressure, still having blurred vision today and dizziness, nausea, diaphoresis. No chest pain. No full syncope. No claudications. Home Medications & Allergies Allergies: Coded Allergies: No Known Drug Allergies (Unverified , 01/09/15) Home Medication List Reviewed: Yes RYQ-Mxqvrh-Cobppd Hx Patient Social History Employed/Student: employed Alcohol Use: Denies Use Recreational Drug Use: No Smoking Status: Never a Smoker 2nd Hand Smoke Exposure: No Recent Foreign Travel: No Recent Infectious Disease Expo: No Recent Hopitalizations: No Immunizations Up To Date Date of Pneumonia Vaccine: Mar 11, 2016 Past Medical History discussed below Family Medical History Significant Family History: No Pertinent Family Hx Family Medical Hx noncontributory Review of Systems-General Review of Systems Constitutional: see HPI, dizziness, malaise, weakness EENTM: see HPI, no symptoms reported Respiratory: see HPI; No cough, No dyspnea on exertion, No hemoptysis, No orthopnea, No phlegm, No short of breath, No stridor, No wheezing, No other Cardiovascular: see HPI; No chest pain, No edema, No Hx of Intervention, No palpitations, No syncope, No vascular heart diseas, No other Gastrointestinal: see HPI, dysphagia, nausea Genitourinary: no symptoms reported, see HPI Musculoskeletal: no symptoms reported, see HPI Skin: no symptoms reported, see HPI Psychiatric/Neurological: No Symptoms Reported, See HPI, Headache; Denies Numbness, Denies Paresthesia, Denies Seizure, Denies Tingling, Denies Tremors, Denies Weakness Reviewed Test Results Reviewed Test Results Lab Laboratory Tests Test 01/09/19 18:15 01/10/19 02:40 Range/Units White Blood Count 7.3 6.6 4.3-11.0 10^3/uL Red Blood Count 4.26 L 3.98 L 4.35-5.85 10^6/uL Hemoglobin 12.4 11.5 11.5-16.0 G/DL Hematocrit 39 36 35-52 % Mean Corpuscular Volume 91 91 80-99 FL Mean Corpuscular Hemoglobin 29 29 25-34 PG Mean Corpuscular Hemoglobin Concent 32 32 32-36 G/DL Red Cell Distribution Width 15.1 H 15.1 H 10.0-14.5 % Platelet Count 353 319 130-400 10^3/uL Mean Platelet Volume 10.0 9.9 7.4-10.4 FL Neutrophils (%) (Auto) 66 59 42-75 % Lymphocytes (%) (Auto) 24 31 12-44 % Monocytes (%) (Auto) 7 8 0-12 % Eosinophils (%) (Auto) 3 1 0-10 % Basophils (%) (Auto) 1 1 0-10 % Neutrophils # (Auto) 4.8 3.9 1.8-7.8 X 10^3 Lymphocytes # (Auto) 1.8 2.0 1.0-4.0 X 10^3 Monocytes # (Auto) 0.5 0.6 0.0-1.0 X 10^3 Eosinophils # (Auto) 0.2 0.1 0.0-0.3 10^3/uL Basophils # (Auto) 0.1 0.0 0.0-0.1 10^3/uL Prothrombin Time 12.2 12.2-14.7 SEC INR Comment 0.9 0.8-1.4 Activated Partial Thromboplast Time 30 24-35 SEC Sodium Level 138 138 135-145 MMOL/L Potassium Level 3.3 L 4.2 3.6-5.0 MMOL/L Chloride Level 98 102 98-107 MMOL/L Carbon Dioxide Level 27 23 21-32 MMOL/L Anion Gap 13 13 5-14 MMOL/L Blood Urea Nitrogen 7 6 L 7-18 MG/DL Creatinine 0.80 0.71 0.60-1.30 MG/DL Estimat Glomerular Filtration Rate > 60 > 60 BUN/Creatinine Ratio 9 8 Glucose Level 119 H 110 H 70-105 MG/DL Calcium Level 10.4 H 9.6 8.5-10.1 MG/DL Corrected Calcium 10.0 9.8 8.5-10.1 MG/DL Magnesium Level 2.0 2.1 1.8-2.4 MG/DL Total Bilirubin 0.2 0.2 0.1-1.0 MG/DL Aspartate Amino Transf (AST/SGOT) 20 16 5-34 U/L Alanine Aminotransferase (ALT/SGPT) 14 15 0-55 U/L Alkaline Phosphatase 104 85 40-136 U/L Troponin I < 0.028 <0.028 NG/ML B-Type Natriuretic Peptide 99.5 <100.0 PG/ML Total Protein 8.0 6.9 6.4-8.2 GM/DL Albumin 4.5 3.8 3.2-4.5 GM/DL Phosphorus Level 3.3 2.3-4.7 MG/DL Physical Exam Physical Exam Vital Signs Vital Signs - First Documented 01/09/19 18:07 Temp 96.2 Pulse 72 Resp 18 B/P (MAP) 231/118 (155) Pulse Ox 100 O2 Delivery Room Air Capillary Refill : Less Than 3 Seconds Height, Weight, BMI Height: 5'5.00" Weight: 208lbs. 8.0oz. 94.205888de; 34.7 BMI Method:Stated General Appearance: No Apparent Distress, WD/WN HEENT: PERRL/EOMI, TMs Normal, Normal ENT Inspection, Pharynx Normal, Moist Mucous Membranes Neck: Full Range of Motion, Normal Inspection, Non Tender, Supple; No Carotid Bruit, No JVD Respiratory: Normal Breath Sounds, No Accessory Muscle Use, No Respiratory Distress Cardiovascular: Regular Rate, Rhythm, No Edema, No JVD, No Murmur, Normal Peripheral Pulses Gastrointestinal: No Pulsatile Mass, Non Tender, Soft Extremity: Normal Capillary Refill, Normal Inspection, Normal Range of Motion, Non Tender, No Calf Tenderness, No Pedal Edema Neurologic/Psychiatric: Alert, Oriented x3, No Motor/Sensory Deficits, line fisher II- XII Norm as Tested, Other (MILDLY ANXIOUS) Skin: Normal Color, Warm/Dry A/P-Cardiology Admission Diagnosis Hypertensive emergency Blurred vision Nausea Dizziness Assessment/Plan Hypertensive emergency, blood pressure is better controlled at this time, still symptomatic with blurred vision, nausea and dizziness, I will hold clonidine and continue on metoprolol and lisinopril and evaluate tolerance and response. Evaluate 2-D echocardiogram Questionable history of congestive heart failure, no signs of heart failure, planning to evaluate 2-D echocardiogram. Dizziness, occurred with the elevated blood pressure and lower blood pressure, currently still having some dizziness and lightheadedness. Start IV fluid and monitor Nausea, abdominal discomfort, still having active nausea, electrolytes were normal. Could be secondary to labile blood pressure. Continue to monitor History of gastric stapling in the remote past, cholecystectomy, appendectomy, Clinical Quality Measures DVT/VTE Risk/Contraindication: Risk Factor Score Per Nursin RFS Level Per Nursing on Admit: 2=Moderate HOLLIE HEATON MD Jan 10, 2019 07:56
[2019-01-10] MEDS: meTOprolol TARTRATE 25 MG (LOPRESSOR) TABLET PO SCH ×2 (08:27→21:10)
[2019-01-10] MEDS: lisINopril 20 MG (PRINIVIL) TABLET PO SCH (08:28)
[2019-01-10] MEDS: NS IV 1000 ML 1,000 ML IV SCH ×2 (08:29→18:05)
[2019-01-10] MEDS ORDERED: cloNIDine 0.1 MG (CATAPRES) TAB PO SCH (09:00)
--- NOTE | 2019-01-10 09:00 | NUR ---
Report given to Tiffany RN on 4th floor.
[2019-01-10] MEDS ORDERED: DIPH25CA79 PO (09:42)
[2019-01-10] MEDS ORDERED: ACET-2267 PO (09:42)
[2019-01-10] MEDS ORDERED: ACET-2469 PO (09:42)
[2019-01-10] MEDS ORDERED: METO50TA15 PO (09:44)
[2019-01-10] MEDS ORDERED: HYDR25TA4 PO (09:44)
--- NOTE | 2019-01-10 09:46 | NUR ---
SPOKE WITH THE PATIENT ABOUT HER MEDICATIONS. SHE STATES SHE HAD NOT BEEN TAKING ANY PRESCRIPTION MEDICATIONS UNTIL SHE WAS SEEN IN THE ED RECENTLY AND PRESCRIBED METOPROLOL/HCTZ. SHE STATES THE PHARMACY SPLIT THE SCRIPT INTO TWO SEPARATE SCRIPTS INSTEAD OF THE COMBO TABLET BUT SHE DID PICK THEM UP AND TOOK THEM PRIOR TO BEING ADMITTED. I CALLED [facility] TO VERIFY. [employer] [facility] FILLED: 01-09-19 METOPROLOL TARTRATE 50MG BID #30 01-09-19 HCTZ 25MG BID #30 SHE ALSO TAKES THE FOLLOWING OTC: TYLENOL 500MG 2 NEEDED BENADRYL 25MG TID TYLENOL PM 2 HS PRN
--- NOTE | 2019-01-10 13:36 | History & Physical-Hospitalist ---
History of Present Illness HPI/Chief Complaint Chikis Hughes is a 69yoF with PMH HTN who presents with headache and vision changes and was admitted with HTN emergency. She reports that she has been having lightheadedness, dizziness, and diaphoresis occasionally for the past month. She reports headache and vision changes over the past couple days. She was seen at urgent care and recommended to come to the ER. She has not taken her medications for the past two years. She denies chest pain, dyspnea, abdominal pain, nausea, vomiting, diarrhea, dysuria. She has no other known medical problems. She has a history of chronic opioid use, but has not taken any for the past five years. She is a non-smoker, non-drinker, and does not use illicit drugs. She does not currently have a PCP. She was previously seen by a doctor at a [facility] clinic in [place]. Source: patient Exam Limitations: no limitations Date Seen 01/10/19 Time Seen by a Provider: 12:00 Attending Physician Miriam Carroll DO PCP No,Local Physician Referring Physician Date of Admission Jan 09, 2019 at 21:27 Home Medications & Allergies Home Medications Reviewed patient Home Medication Reconciliation performed by pharmacy medication reconciliations instructional media services technician and/or nursing. Patients Allergies have been reviewed. Allergies Allergies Coded Allergies No Known Drug Allergies (Unverified01/09/15) Past Oqdnabh-Mywakc-Dygqtb Hx Past Med/Social Hx: Reviewed Nursing Past Med/Soc Hx, Reviewed and Corrections made Patient Social History Employed/Student: employed Alcohol Use: Denies Use Recreational Drug Use: No Smoking Status: Never a Smoker 2nd Hand Smoke Exposure: No Recent Foreign Travel: No Contact w/other who traveled: No Recent Hopitalizations: No Recent Infectious Disease Expo: No Immunizations Up To Date Date of Pneumonia Vaccine: Mar 11, 2016 Seasonal Allergies Seasonal Allergies: No Past Medical History Surgeries: Abdominal, Appendectomy, Section, Gallbladder, H ysterectomy, Oophorectomy Cardiac: Hypertension Neurological: Headaches /Migraines Hysterectomy, Menopausal Musculoskeletal: Chronic Back Pain History of Blood Disorders: No Family History No Pertinent Family Hx Review of Systems Constitutional: No chills; diaphoresis, dizziness; No fever; weakness EENTM: blurred vision, vision loss Respiratory: no symptoms reported Cardiovascular: No chest pain; palpitations Gastrointestinal: No abdominal pain, No constipation, No diarrhea, No nausea, No vomiting Genitourinary: No dysuria Musculoskeletal: joint pain; No muscle pain Skin: no symptoms reported Psychiatric/Neurological: No Symptoms Reported Physical Exam Physical Exam Vital Signs Vital Signs - First Documented 01/09/19 18:07 Temp 96.2 Pulse 72 Resp 18 B/P (MAP) 231/118 (155) Pulse Ox 100 O2 Delivery Room Air Capillary Refill : Less Than 3 Seconds Height, Weight, BMI Height: 5'5.00" Weight: 208lbs. 8.0oz. 94.828564nf; 34.7 BMI Method:Stated General Appearance: No Apparent Distress, WD/WN HEENT: PERRL/EOMI, Pharynx Normal Neck: Full Range of Motion, Supple Respiratory: Lungs Clear, Normal Breath Sounds, No Respiratory Distress Cardiovascular: Regular Rate, Rhythm, No Edema, No Murmur Gastrointestinal: Normal Bowel Sounds, Non Tender, Soft Extremity: Normal Inspection, Non Tender, No Pedal Edema Neurologic/Psychiatric: Alert, No Motor/Sensory Deficits, Normal Mood/Affect; No Disoriented Skin: Normal Color, Warm/Dry Lymphatic: No Adenopathy Results Results/Procedures Labs Laboratory Tests 01/09/19 18:15 01/10/19 02:40 Patient resulted labs reviewed. Imaging: Reviewed Imaging Report Assessment/Plan Admission Diagnosis Hypertensive emergency Admission Status: Inpatient Order (span 2 midnights) Reason for Inpatient Admission: Blood pressure management Assessment and Plan Hypertensive emergency Medication non-adherence -History of HTN, not taking meds for 2+ years -BP ~230/110 on arrival -Cardiology consulted for assistance -Received several IV anti-hypertensives -BP improved overnight -Started on Lisinopril and Metoprolol -Headache and vision changes improved, but not completely resolved this morning -Continue to monitor and adjust BP meds as needed -TTE ordered Hypokalemia -Mildly decreased on admission -Resolved, continue to monitor Diagnosis/Problems Diagnosis/Problems (1) Hypertensive emergency Status: Acute (2) Hypokalemia Status: Resolved Resolution Date/Time: 01/10/19 @ 13:45 Clinical Quality Measures DVT/VTE Risk/Contraindication: Risk Factor Score Per Nursin RFS Level Per Nursing on Admit: 2=Moderate CECILY SALAS MD Jan 10, 2019 13:36
[2019-01-10] MEDS: ACETAMINOPHEN 500 MG TAB (TYLENOL) PO PRN ×2 (14:53→21:10)
[2019-01-11] VITALS: BP 132/77
[2019-01-11] MEDS: NS IV 1000 ML 1,000 ML IV SCH (03:48)
[2019-01-11] MEDS: ACETAMINOPHEN 500 MG TAB (TYLENOL) PO PRN (03:49)
[2019-01-11 03:54] VITALS: BP 152/69
[2019-01-11] MEDS ORDERED: POTASSIUM PHOSPHATE INJ 30 MM in NS (IVPB) 250 ML IV ONE (05:06)
[2019-01-11 05:34] LABS: BASOPHILS % (AUTO) 1 % (0-10); EOSINOPHILS # (AUTO) 0.2 10^3/uL (0.0-0.3); EOSINOPHILS % (AUTO) 4 % (0-10); HEMATOCRIT 36 % (35-52); HEMOGLOBIN 10.8 G/DL (11.5-16.0); LYMPHOCYTES % (AUTO) 43 % (12-44); MEAN CORPUSCULAR HEMOGLOBIN 28 PG (25-34); MEAN CORPUSCULAR HGB CONC 30 G/DL (32-36); MEAN CORPUSCULAR VOLUME 93 FL (80-99); MEAN PLATELET VOLUME 10.2 FL (7.4-10.4); MONOCYTES # (AUTO) 0.5 X 10^3 (0.0-1.0); MONOCYTES % (AUTO) 10 % (0-12); NEUTROPHILS % (AUTO) 42 % (42-75); PLATELET COUNT 302 10^3/uL (130-400); RED CELL DISTRIBUTION WIDTH 15.6 % (10.0-14.5); WHITE BLOOD COUNT 4.6 10^3/uL (4.3-11.0)
[2019-01-11 05:59] LABS: ALANINE AMINOTRANSFERASE 11 U/L (0-55); ALBUMIN 3.4 GM/DL (3.2-4.5); ALKALINE PHOSPHATASE 79 U/L (40-136); BILIRUBIN,TOTAL 0.2 MG/DL (0.1-1.0); BUN/CREATININE RATIO 14; CALCIUM 8.9 MG/DL (8.5-10.1); CARBON DIOXIDE 25 MMOL/L (21-32); CHLORIDE 108 MMOL/L (98-107); CREATININE SERUM 0.65 MG/DL (0.60-1.30); GFR ESTIMATED > 60; GLUCOSE 95 MG/DL (70-105); MAGNESIUM 2.1 MG/DL (1.8-2.4); PHOSPHORUS 3.9 MG/DL (2.3-4.7); POTASSIUM 3.9 MMOL/L (3.6-5.0); SODIUM 141 MMOL/L (135-145); TOTAL PROTEIN 5.9 GM/DL (6.4-8.2)
--- NOTE | 2019-01-11 07:53 | Diagnostic Imaging Report ---
INDICATION: Dyspnea. TECHNIQUE: Single frontal view of the chest. COMPARISON: 01/10/2019 FINDINGS: Lung volumes are normal. No focal consolidation is seen. There is no pleural effusion or pneumothorax. Multiple surgical clips are seen in the left upper abdomen. The cardiac silhouette is stable in size. IMPRESSION: No acute pulmonary abnormality is seen. Dictated by: Dictated on workstation # [id number]
[2019-01-11 08:00] VITALS: BP 186/86
[2019-01-11] MEDS ORDERED: LISI-552 PO (08:08)
[2019-01-11] MEDS ORDERED: ASPI-983 PO (08:08)
[2019-01-11] MEDS ORDERED: METO-333 PO (08:08)
--- NOTE | 2019-01-11 08:10 | Cardiology Progress Note ---
Subjective Date Seen by Provider: Jan 11, 2019 Time Seen by Provider: 08:09 Subjective/Events-last exam Patient is feeling better, reporting improvement in her symptoms, no chest pain or shortness of breath. No palpitation Review of Systems General: No Chills, No Night Sweats, No Fatigue, No Malaise, No Appetite, No Other HEENT: No Head Aches, No Visual Changes, No Eye Pain, No Ear Pain, No Dysphasia, No Sinus Congestion, No Post Nasal Drip, No Sore Throat, No Other Pulmonary: No Dyspnea, No Cough, No Pleuritic Chest Pain, No Other Cardiovascular: No: Chest Pain, Palpitations, Orthopnea, Paroxysmal Noc. Dyspnea, Edema, Lt Headedness, Other Objective-Cardiology Exam Last Set of Vital Signs Vital Signs 01/11/19 01/11/19 03:54 07:00 Temp 97.3 Pulse 66 Resp 16 B/P (MAP) 152/69 (96) Pulse Ox 99 O2 Delivery Room Air Capillary Refill : Less Than 3 Seconds I&O Intake and Output 01/11/19 00:00 Intake Total 1460 ml Output Total 1250 ml Balance 210 ml Intake Oral 260 ml IV Total 1200 ml Output Urine Total 1250 ml General: Alert, Oriented X3, Cooperative HEENT: Atraumatic, PERRLA Neck: Supple, No JVD, No Thyromegaly Lungs: Clear to Auscultation, Normal Air Movement Heart: Regular Rate, Normal S1, Normal S2, No Murmurs Abdomen: Normal Bowel Sounds, Soft, No Tenderness, No Hepatosplenomegaly, No Masses Extremities: No Clubbing, No Cyanosis, No Edema, Normal Pulses, No Tenderness/Swelling Skin: No Rashes, No Breakdown, No Significant Lesion Neuro: Normal Gait, Normal Speech, Strength at 5/5 X4 Ext, Normal Tone, Sensation Intact Psych/Mental Status: Mental Status NL, Mood NL Results Lab Laboratory Tests 01/11/19 04:42 A/P-Cardiology Admission Diagnosis Hypertensive emergency Blurred vision Nausea Dizziness Assessment/Plan Hypertensive emergency, blood pressure is better controlled at this time, continue on metoprolol and lisinopril and arrange for follow-up as an outpatient Elevated BNP, normal left ventricular size and systolic function, no signs of congestive heart failure. Echocardiogram was normal Dizziness, occurred with the elevated blood pressure and lower blood pressure, reporting improvement Nausea, abdominal discomfort, reporting improvement History of gastric stapling in the remote past, cholecystectomy, appendectomy, Clinical Quality Measures DVT/VTE Risk/Contraindication: Risk Factor Score Per Nursin RFS Level Per Nursing on Admit: 2=Moderate HOLLIE HEATON MD Jan 11, 2019 08:10
[2019-01-11] MEDS: meTOprolol TARTRATE 25 MG (LOPRESSOR) TABLET PO SCH (08:19)
[2019-01-11] MEDS: lisINopril 20 MG (PRINIVIL) TABLET PO SCH (08:19)
--- NOTE | 2019-01-11 10:03 | Discharge Inst-Simple/Standard ---
Discharge Inst-Standard Reconcile Patient Problems Problems Reviewed?: Yes Discharge Medications New, Converted or Re-Newed RX: Transmitted to Pharmacy Patient Instructions/Follow Up Plan of Care/Instructions/FU: Take medications as prescribed. Follow up with Dr. Lopez as scheduled. Establish care with a local primary care physician. Activity as Tolerated: Yes Discharge Diet: Low Sodium Diet Return to The Hospital For: headache, lightheadedness/dizziness, chest pain, shortness of breath, or if you feel like you are getting worse. CECILY SALAS MD Jan 11, 2019 10:03
--- NOTE | 2019-01-11 10:11 | Discharge Summary ---
Diagnosis/Chief Complaint Date of Admission Jan 09, 2019 at 21:27 Date of Discharge Discharge Date: Jan 11, 2019 Discharge Time: 10:06 Admission Diagnosis Hypertensive emergency Discharge Diagnosis Hypertensive emergency (1) Hypertensive emergency Status: Resolved (2) Essential hypertension Status: Chronic (3) Hypokalemia Status: Resolved (4) (HFpEF) heart failure with preserved ejection fraction Status: Chronic Discharge Summary Procedures/Consulations Cardiology Discharge Physical Exam Allergies: Coded Allergies: No Known Drug Allergies (Unverified , 01/09/15) Vitals & I&Os Vital Signs Date Time Temp Pulse Resp B/P (MAP) Pulse Ox O2 Delivery O2 Flow Rate FiO2 01/11/19 07:00 66 01/11/19 03:54 97.3 16 152/69 (96) 99 Room Air General Appearance: No Apparent Distress, WD/WN, Obese HEENT: PERRL/EOMI, Pharynx Normal Respiratory: Lungs Clear, Normal Breath Sounds, No Respiratory Distress Cardiovascular: Regular Rate, Rhythm, No Edema, No Murmur Gastrointestinal: Normal Bowel Sounds, Non Tender, Soft Extremity: Normal Inspection, Non Tender, No Pedal Edema Skin: Normal Color, Warm/Dry Neurologic/Psychiatric: Alert, No Motor/Sensory Deficits; No Disoriented Hospital Course Was the Problem List Reviewed?: Yes Chikis Hughes is a 69yoF with PMH HTN who presented with headache and vision changes and was admitted with hypertensive emergency. She underwent CT Head which showed no acute changes. Her blood pressure improved with IV antihype rtensives and her symptoms subsequently resolved. She was started on Lisinopril and Metoprolol and her blood pressure stabilized but remained mildly elevated. She will need titration of her medications as an outpatient. 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 An echocardiogram was performed while inpatient and showed normal EF with no regional wall motion abnormalities. There was impaired relaxation consistent with grade I diastolic dysfunction. She plans to establish with a primary care physician after discharge. Labs (last 24 hrs) Laboratory Tests 01/11/19 04:42: White Blood Count 4.6, Red Blood Count 3.82L, Hemoglobin 10.8L, Hematocrit 36, Mean Corpuscular Volume 93, Mean Corpuscular Hemoglobin 28, Mean Corpuscular Hemoglobin Concent 30L, Red Cell Distribution Width 15.6H, Platelet Count 302, Mean Platelet Volume 10.2, Neutrophils (%) (Auto) 42, Lymphocytes (%) (Auto) 43, Monocytes (%) (Auto) 10, Eosinophils (%) (Auto) 4, Basophils (%) (Auto) 1, Neutrophils # (Auto) 2.0, Lymphocytes # (Auto) 2.0, Monocytes # (Auto) 0.5, Eosinophils # (Auto) 0.2, Basophils # (Auto) 0.0, Sodium Level 141, Potassium Level 3.9, Chloride Level 108H, Carbon Dioxide Level 25, Anion Gap 8, Blood Urea Nitrogen 9, Creatinine 0.65, Estimat Glomerular Filtration Rate > 60, BUN/Creatinine Ratio 14, Glucose Level 95, Calcium Level 8.9, Corrected Calcium 9.4, Phosphorus Level 3.9, Magnesium Level 2.1, Total Bilirubin 0.2, Aspartate Amino Transf (AST/SGOT) 15, Alanine Aminotransferase (ALT/SGPT) 11, Alkaline Phosphatase 79, Total Protein 5.9L, Albumin 3.4 Microbiology 01/09/19 MRSA Screen - Final, Complete MRSA not isolated Patient resulted labs reviewed. Pending Labs Laboratory Tests 01/11/19 04:42: White Blood Count 4.6, Red Blood Count 3.82, Hemoglobin 10.8, Hematocrit 36, Mean Corpuscular Volume 93, Mean Corpuscular Hemoglobin 28, Mean Corpuscular Hemoglobin Concent 30, Red Cell Distribution Width 15.6, Platelet Count 302, Mean Platelet Volume 10.2, Neutrophils (%) (Auto) 42, Lymphocytes (%) (Auto) 43, Monocytes (%) (Auto) 10, Eosinophils (%) (Auto) 4, Basophils (%) (Auto) 1, Neutrophils # (Auto) 2.0, Lymphocytes # (Auto) 2.0, Monocytes # (Auto) 0.5, Eosinophils # (Auto) 0.2, Basophils # (Auto) 0.0, Sodium Level 141, Potassium Level 3.9, Chloride Level 108, Carbon Dioxide Level 25, Anion Gap 8, Blood Urea Nitrogen 9, Creatinine 0.65, Estimat Glomerular Filtration Rate > 60, BUN/Creatinine Ratio 14, Glucose Level 95, Calcium Level 8.9, Corrected Calcium 9.4, Phosphorus Level 3.9, Magnesium Level 2.1, Total Bilirubin 0.2, Aspartate Amino Transf (AST/SGOT) 15, Alanine Aminotransferase (ALT/SGPT) 11, Alkaline Phosphatase 79, Total Protein 5.9, Albumin 3.4 Imaging: Reviewed Imaging Report Discussion & Recommendations Discharge Planning: <30 minutes discharge planning Discharge Home Medications: Active Scripts Active Aspirin EC (Aspirin) 81 Mg Tablet.dr 81 Mg PO DAILY Lisinopril 20 Mg Tablet 20 Mg PO DAILY Metoprolol Tartrate 25 Mg Tablet 25 Mg PO BID Reported Tylenol Pm Ex-Strength Caplet (Acetaminophen/Diphenhydramine) 1 Each Tablet 2 Tab PO HS PRN Benadryl (Diphenhydramine HCl) 25 Mg Capsule 25 Mg PO TID Tylenol Extra Strength (Acetaminophen) 500 Mg Tablet 1,000 Mg PO Q6H PRN Condition at discharge Stable Instructions to patient/family Please see electronic discharge instructions given to patient. Clinical Quality Measures DVT/VTE Risk/Contraindication: Risk Factor Score Per Nursin RFS Level Per Nursing on Admit: 2=Moderate CECILY SALAS MD Jan 11, 2019 10:11
[2019-01-11 11:16] VITALS: BP 186/86
--- OUTSIDE RECORDS SUMMARY | 2019-01-11 15:22 | XMS REPORT | Continuity of Care Document ---
Author Organization Unknown Address Unknown Phone Unavailable Allergies Active Description Code Type Severity Reaction Onset Reported/Identified Relationship to Patient Clinical Status Yes No Known Drug Allergies [id number] Drug Allergy Unknown N/A 01/09/2015 Medications There [...] urinalysis with reflex to culture NO NRG Complete blood count (CBC) with automated white blood cell (WBC) differential - 01/09/19 18:15 Blood leukocytes automated count (number/volume) 7.3 10*3/uL 4.3-11.0 Blood erythrocytes automated count (number/volume) 4.26 10*6/uL 4.35-5.85 Venous blood hemoglobin measurement (mass/volume) 12.4 g/dL 11.5-16.0 Blood hematocrit (volume fraction) 39 % 35-52 Automated erythrocyte mean corpuscular volume 91 [foz_us] 80-99 Automated erythrocyte mean corpuscular hemoglobin (mass per erythrocyte) 29 pg 25-34 Automated erythrocyte mean corpuscular hemoglobin concentration measurement (mass/volume) 32 g/dL 32-36 Automated erythrocyte distribution width ratio 15.1 % 10.0- 14.5 Automated blood platelet count (count/volume) 353 10*3/uL 130-400 Automated blood platelet mean volume measurement 10.0 [foz_us] 7.4-10.4 Automated blood neutrophils/100 leukocytes 66 % 42-75 Automated blood lymphocytes/100 leukocytes 24 % 12-44 Blood monocytes/100 leukocytes 7 % 0-12 Automated blood eosinophils/100 leukocytes 3 % 0-10 Automated blood basophils/100 leukocytes 1 % 0-10 Blood neutrophils automated count (number/volume) 4.8 10*3 1.8-7.8 Blood lymphocytes automated count (number/volume) 1.8 10*3 1.0-4.0 Blood monocytes automated count (number/volume) 0.5 10*3 0.0- 1.0 Automated eosinophil count 0.2 10*3/uL 0.0-0.3 Automated blood basophil count (count/volume) 0.1 10*3/uL 0.0-0.1 PT panel in platelet poor plasma by coagulation assay - 01/09/19 18:15 Prothrombin time (PT) in platelet poor plasma by coagulation assay 12.2 s 12.2-14.7 INR in platelet poor plasma or blood by coagulation assay 0.9 0.8-1.4 Activated partial thromboplastin time (aPTT) in platelet poor plasma bycoagulation assay - 01/09/19 18:15 Activated partial thromboplastin time (aPTT) in platelet poor plasma bycoagulation assay 30 s 24-35 Comprehensive metabolic panel - 01/09/19 18:15 Serum or plasma sodium measurement (moles/volume) 138 mmol/L 135-145 Serum or plasma potassium measurement (moles/volume) 3.3 mmol/L 3.6-5.0 Serum or plasma chloride measurement (moles/volume) 98 mmol/L 98-107 Carbon dioxide 27 mmol/L 21-32 Serum or plasma anion gap determination (moles/volume) 13 mmol/L 5-14 Serum or plasma urea nitrogen measurement (mass/volume) 7 mg/dL 7-18 Serum or plasma creatinine measurement (mass/volume) 0.80 mg/dL 0.60-1.30 Serum or plasma urea nitrogen/creatinine mass ratio 9 NRG Serum or plasma creatinine measurement with calculation of estimated glomerular filtration rate > NRG Serum or plasma glucose measurement (mass/volume) 119 mg/dL 70-105 Serum or plasma calcium measurement (mass/volume) 10.4 mg/dL 8.5-10.1 Serum or plasma total bilirubin measurement (mass/volume) 0.2 mg/dL 0.1-1.0 Serum or plasma alkaline phosphatase measurement (enzymatic activity/volume) 104 U/L 40-136 Serum or plasma aspartate aminotransferase measurement (enzymatic activity/volume) 20 U/L 5-34 Serum or plasma alanine aminotransferase measurement (enzymatic activity/volume) 14 U/L 0-55 Serum or plasma protein measurement (mass/volume) 8.0 g/dL 6.4-8.2 Serum or plasma albumin measurement (mass/volume) 4.5 g/dL 3.2-4.5 CALCIUM CORRECTED 10.0 mg/dL 8.5-10.1 Magnesium - 01/09/19 18:15 Magnesium 2.0 mg/dL 1.8-2.4 Serum or plasma troponin i.cardiac measurement (mass/volume) - 01/09/19 18:15 Serum or plasma troponin i.cardiac measurement (mass/volume) < ng/mL <0.028 Serum or plasma lithium measurement (moles/volume) - 01/09/19 18:15 BNP PT 99.5 pg/mL <100.0 Methicillin resistant Staphylococcus aureus (MRSA) screening culture - 01/09/19 22:49 Methicillin resistant Staphylococcus aureus (MRSA) screening culture NEG NRG Complete blood count (CBC) with automated white blood cell (WBC) differential - 01/10/19 02:40 Blood leukocytes automated count (number/volume) 6.6 10*3/uL 4.3-11.0 Blood erythrocytes automated count (number/volume) 3.98 10*6/uL 4.35-5.85 Venous blood hemoglobin measurement (mass/volume) 11.5 g/dL 11.5-16.0 Blood hematocrit (volume fraction) 36 % 35-52 Automated erythrocyte mean corpuscular volume 91 [foz_us] 80-99 Automated erythrocyte mean corpuscular hemoglobin (mass per erythrocyte) 29 pg 25-34 Automated erythrocyte mean corpuscular hemoglobin concentration measurement (mass/volume) 32 g/dL 32-36 Automated erythrocyte distribution width ratio 15.1 % 10.0- 14.5 Automated blood platelet count (count/volume) 319 10*3/uL 130-400 Automated blood platelet mean volume measurement 9.9 [foz_us] 7.4-10.4 Automated blood neutrophils/100 leukocytes 59 % 42-75 Automated blood lymphocytes/100 leukocytes 31 % 12-44 Blood monocytes/100 leukocytes 8 % 0-12 Automated blood eosinophils/100 leukocytes 1 % 0-10 Automated blood basophils/100 leukocytes 1 % 0-10 Blood neutrophils automated count (number/volume) 3.9 10*3 1.8-7.8 Blood lymphocytes automated count (number/volume) 2.0 10*3 1.0-4.0 Blood monocytes automated count (number/volume) 0.6 10*3 0.0- 1.0 Automated eosinophil count 0.1 10*3/uL 0.0-0.3 Automated blood basophil count (count/volume) 0.0 10*3/uL 0.0-0.1 Comprehensive metabolic panel - 01/10/19 02:40 Serum or plasma sodium measurement (moles/volume) 138 mmol/L 135-145 Serum or plasma potassium measurement (moles/volume) 4.2 mmol/L 3.6-5.0 Serum or plasma chloride measurement (moles/volume) 102 mmol/L 98-107 Carbon dioxide 23 mmol/L 21-32 Serum or plasma anion gap determination (moles/volume) 13 mmol/L 5-14 Serum or plasma urea nitrogen measurement (mass/volume) 6 mg/dL 7-18 Serum or plasma creatinine measurement (mass/volume) 0.71 mg/dL 0.60-1.30 Serum or plasma urea nitrogen/creatinine mass ratio 8 NRG Serum or plasma creatinine measurement with calculation of estimated glomerular filtration rate > NRG Serum or plasma glucose measurement (mass/volume) 110 mg/dL 70-105 Serum or plasma calcium measurement (mass/volume) 9.6 mg/dL 8.5-10.1 Serum or plasma total bilirubin measurement (mass/volume) 0.2 mg/dL 0.1-1.0 Serum or plasma alkaline phosphatase measurement (enzymatic activity/volume) 85 U/L 40-136 Serum or plasma aspartate aminotransferase measurement (enzymatic activity/volume) 16 U/L 5-34 Serum or plasma alanine aminotransferase measurement (enzymatic activity/volume) 15 U/L 0-55 Serum or plasma protein measurement (mass/volume) 6.9 g/dL 6.4-8.2 Serum or plasma albumin measurement (mass/volume) 3.8 g/dL 3.2-4.5 CALCIUM CORRECTED 9.8 mg/dL 8.5-10.1 Serum or plasma phosphate measurement (mass/volume) - 01/10/19 02:40 Serum or plasma phosphate measurement (mass/volume) 3.3 mg/dL 2.3-4.7 Magnesium - 01/10/19 02:40 Magnesium 2.1 mg/dL 1.8-2.4 Complete blood count (CBC) with automated white blood cell (WBC) differential - 01/11/19 04:42 Blood leukocytes automated count (number/volume) 4.6 10*3/uL 4.3-11.0 Blood erythrocytes automated count (number/volume) 3.82 10*6/uL 4.35-5.85 Venous blood hemoglobin measurement (mass/volume) 10.8 g/dL 11.5-16.0 Blood hematocrit (volume fraction) 36 % 35-52 Automated erythrocyte mean corpuscular volume 93 [foz_us] 80-99 Automated erythrocyte mean corpuscular hemoglobin (mass per erythrocyte) 28 pg 25-34 Automated erythrocyte mean corpuscular hemoglobin concentration measurement (mass/volume) 30 g/dL 32-36 Automated erythrocyte distribution width ratio 15.6 % 10.0- 14.5 Automated blood platelet count (count/volume) 302 10*3/uL 130-400 Automated blood platelet mean volume measurement 10.2 [foz_us] 7.4-10.4 Automated blood neutrophils/100 leukocytes 42 % 42-75 Automated blood lymphocytes/100 leukocytes 43 % 12-44 Blood monocytes/100 leukocytes 10 % 0-12 Automated blood eosinophils/100 leukocytes 4 % 0-10 Automated blood basophils/100 leukocytes 1 % 0-10 Blood neutrophils automated count (number/volume) 2.0 10*3 1.8-7.8 Blood lymphocytes automated count (number/volume) 2.0 10*3 1.0-4.0 Blood monocytes automated count (number/volume) 0.5 10*3 0.0- 1.0 Automated eosinophil count 0.2 10*3/uL 0.0-0.3 Automated blood basophil count (count/volume) 0.0 10*3/uL 0.0-0.1 Comprehensive metabolic panel - 01/11/19 04:42 Serum or plasma sodium measurement (moles/volume) 141 mmol/L 135-145 Serum or plasma potassium measurement (moles/volume) 3.9 mmol/L 3.6-5.0 Serum or plasma chloride measurement (moles/volume) 108 mmol/L 98-107 Carbon dioxide 25 mmol/L 21-32 Serum or plasma anion gap determination (moles/volume) 8 mmol/L 5-14 Serum or plasma urea nitrogen measurement (mass/volume) 9 mg/dL 7-18 Serum or plasma creatinine measurement (mass/volume) 0.65 mg/dL 0.60-1.30 Serum or plasma urea nitrogen/creatinine mass ratio 14 NRG Serum or plasma creatinine measurement with calculation of estimated glomerular filtration rate > NRG Serum or plasma glucose measurement (mass/volume) 95 mg/dL 70-105 Serum or plasma calcium measurement (mass/volume) 8.9 mg/dL 8.5-10.1 Serum or plasma total bilirubin measurement (mass/volume) 0.2 mg/dL 0.1-1.0 Serum or plasma alkaline phosphatase measurement (enzymatic activity/volume) 79 U/L 40-136 Serum or plasma aspartate aminotransferase measurement (enzymatic activity/volume) 15 U/L 5-34 Serum or plasma alanine aminotransferase measurement (enzymatic activity/volume) 11 U/L 0-55 Serum or plasma protein measurement (mass/volume) 5.9 g/dL 6.4-8.2 Serum or plasma albumin measurement (mass/volume) 3.4 g/dL 3.2-4.5 CALCIUM CORRECTED 9.4 mg/dL 8.5-10.1 Serum or plasma phosphate measurement (mass/volume) - 01/11/19 04:42 Serum or plasma phosphate measurement (mass/volume) 3.9 mg/dL 2.3-4.7 Magnesium - 01/11/19 04:42 Magnesium 2.1 mg/dL 1.8-2.4 Encounters ACCT No. Visit Date/Time Discharge Status Pt. Type Provider Facility Loc./Unit Complaint [id number] 01/09/2019 22:39:00 01/11/2019 10:04:00 DIS Inpatient REYES CLAYTON LUCIO [facility] 4TH UNCONTROLLED HTN [id number] 01/08/2019 17:59:00 01/08/2019 20:13:00 DIS Emergency JEAN CLAYTON BRADY K [facility] ER DIZZINESS,HEART PALPITATIONS [id number] 11/17/2015 12:01:00 11/17/2015 16:30:00 DIS Emergency WILIAN PROCTOR MD [facility] ER DIZZY, BLURRED VISION [id number] 01/11/2015 12:26:00 01/11/2015 13:20:00 DIS Emergency ASH MUSA APRN [facility] ER [id number] 01/09/2015 15:38:00 01/09/2015 16:43:00 DIS Emergency ASH MUSA APRN [facility] ER
== END 2019-01-11 10:04 | disposition home or self-care (01) ==
LOC: ER 18:01 → EDUNIT# 18:01 → UNDOADMOB 21:27 → ICU 21:27 → 4TH 21:27 → UNDOADMOB 22:39 → ICU 22:39 → 4TH 01-10 08:48 → UNDODISOB 01-11 11:08
PROVIDERS: ADMIT Internal Medicine; ATTEND Internal Medicine
DX: I16.1 Hypertensive emergency (principal); I11.0 Hypertensive heart disease with heart failure; G43.909 Migraine, unspecified, not intractable, without status migrainosus; G89.29 Other chronic pain; M54.5 Low back pain; H53.8 Other visual disturbances; I50.9 Heart failure, unspecified; E87.6 Hypokalemia; R11.0 Nausea; Z91.19 Patient's noncompliance with other medical treatment and regimen; Z79.899 Other long term (current) drug therapy; Z90.710 Acquired absence of both cervix and uterus; Z90.89 Acquired absence of other organs
CPT/HCPCS: 36415; 70450; 70496; 70498; 71045; 80053; 83735; 83880; 84100; 84484; 85025; 85610; 85730; 87081; 93005; 93041; 93306; G0378

== ENCOUNTER → 2019-02-13 | Outpatient (CLI) | payer MEDICARE, OTHER ==
[~2019-02-13] MED LIST changes: +ACET-2267 PO; +ACET-2469 PO; +ASPI-983 PO; +CATHETER FLUSH 10 ML SYR IV PRN; +DIPH25CA79 PO; +HYDR25TA4 PO; +LISI-552 PO; +METO-333 PO; +METO50TA15 PO; +REGADENOSON 0.4 MG/5 ML SYR (LEXISCAN) IV ONE
[2019-02-13 09:18] VITALS: BP 195/101
--- NOTE | 2019-02-13 18:55 | STRESS TEST ---
DATE OF SERVICE: 02/13/2019 EXERCISE MYOVIEW STRESS TEST REPORT Baseline heart rate is 69, baseline blood pressure 195/110. Baseline EKG is sinus rhythm. In summary, the patient was able to exercise for a total of 3 minutes on standard Romulo protocol. With peak exercise level, EKG was showing nondiagnostic changes. She was injected with a stress dose of 30.5 mCi of technetium-99 Myoview. Peak blood pressure was 218/103. During recovery, heart rate and blood pressure returned to baseline. Resting and stress images were reviewed and compared in the short axis, horizontal long axis, and vertical long axis views. Review of the images showed breast attenuation with reversible ischemia involving the whole anterior wall, anterior septum and anterolateral wall. SSS is 19, SDS 10, TID value 1.1. On the gated images, the left ventricle appeared to be normal size with normal contractility. Calculated ejection fraction 59%. CONCLUSION: 1. Poor exercise tolerance, a total of 3 minutes on standard Romulo protocol, 4.6 METS achieving 95% of maximum expected heart rate. 2. Severe hypertensive response to exercise with peak blood pressure 218/103. 3. Minimal nondiagnostic EKG changes returned to baseline during recovery. 4. Breast attenuation with reversible ischemia involving the whole anterior wall, anterior septum and anterolateral wall. 5. Normal left ventricular size with normal contractility. Calculated ejection fraction 59%. 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
== END ==
LOC: CARD 07:39
PROVIDERS: ATTEND Internal Medicine Cardiovascular Disease
DX: I35.8 Other nonrheumatic aortic valve disorders (principal); I51.9 Heart disease, unspecified; I10 Essential (primary) hypertension; I51.7 Cardiomegaly; G43.909 Migraine, unspecified, not intractable, without status migrainosus
CPT/HCPCS: 78452; 93017

== ENCOUNTER 2019-02-21 03:58 | Emergency (ER) | payer MEDICARE, OTHER ==
[~2019-02-21 03:58] MED LIST changes: +ASPI-789 PO; +ATOR10TA PO; -CATHETER FLUSH 10 ML SYR IV PRN; -REGADENOSON 0.4 MG/5 ML SYR (LEXISCAN) IV ONE
--- NOTE | 2019-02-21 04:10 | NUR ---
DR. ERICKSON AT BEDSIDE, USED ALCOHOL SWAB TO REMOVED DYE FROM LEG TO SHOW PT.
--- NOTE | 2019-02-21 04:17 | ED General ---
General Chief Complaint: Skin/Wound Problems Stated Complaint: POST OP CONCERNS-LEGS ARE BLUE Source of Information: Patient, Old Records Exam Limitations: No Limitations History of Present Illness Date Seen by Provider: Feb 21, 2019 Time Seen by Provider: 04:05 Initial Comments This 69-year-old woman presents to the emergency room with concerns about discoloration of her legs. She got up to the bathroom this morning and noticed the discoloration. She is concerned because she had cardiac angiography performed yesterday. She was advised at discharge to seek immediate care if there was any discoloration of the extremities. Patient is also noted to be significantly hypertensive, likely secondary to her anxiety about the situation. On assessment is noted that the discoloration the patient is referring to is the blue surgical prep on her upper thighs and lower abdomen. Catheter site appears unremarkable. The blue discoloration easily rubs off with an alcohol p ad. Allergies and Home Medications Allergies Coded Allergies: No Known Drug Allergies (Unverified , 01/09/15) Home Medications Acetaminophen/Diphenhydramine 1 Each Tablet, 2 TAB PO HS PRN for MILD PAIN/SLEEP, (Reported) Aspirin 81 Mg Tablet.dr, 81 MG PO DAILY, (Reported) Aspirin/Acetaminophen/Caffeine 1 Each Tablet, 2 EACH PO Q6-8HR PRN for Headache, (Reported) Atorvastatin Calcium 10 Mg Tablet, 10 MG PO DAILY Prescribed by: HOLLIE HEATON on 02/20/19 1033 Diphenhydramine HCl 25 Mg Capsule, 25 MG PO TID PRN for ALLERGIES, (Reported) Lisinopril 20 Mg Tablet, 20 MG PO DAILY, (Reported) Metoprolol Tartrate 25 Mg Tablet, 25 MG PO BID, (Reported) Patient Home Medication List Home Medication List Reviewed: Yes Review of Systems Review of Systems Constitutional: no symptoms reported EENTM: no symptoms reported Respiratory: no symptoms reported Cardiovascular: see HPI Gastrointestinal: no symptoms reported Genitourinary: no symptoms reported Musculoskeletal: no symptoms reported Skin: see HPI Psychiatric/Neurological: See HPI Past Jaeksjo-Aytcft-Rnouyc Hx Past Med/Social Hx: Reviewed and Corrections made Patient Social History 2nd Hand Smoke Exposure: No Recent Foreign Travel: No Contact w/Someone Who Travel: No Recent Hopitalizations: Yes (1 month ago htn emergency) Immunizations Up To Date Date of Pneumonia Vaccine: Mar 11, 2016 Seasonal Allergies Seasonal Allergies: No Past Medical History Surgeries: Yes ( X 3; HYST/BSO; STOMACH STAPLING / BARIATRIC SURGERY) Abdominal, Appendectomy, Cardiac (Cardiac angiography February 2019), Section, Gallbladder, Hysterectomy, Oophorectomy Respiratory: No Currently Using CPAP: No Cardiac: Yes Heart Murmur, High Cholesterol, Hypertension Neurological: Yes Concussion, Headaches /Migraines 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 5.0oz. 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 Departure Impression Primary Impression: Discoloration of skin Additional Impression: Hypertension Qualified Codes: I10 - Essential (primary) hypertension Disposition: 01 HOME, SELF-CARE Condition: Stable Departure-Patient Inst. Decision time for Depature: 04:16 Referrals: NO,LOCAL PHYSICIAN (PCP/Family) Primary Care Physician Patient Instructions: NO INSTRUCTIONS GIVEN Add. Discharge Instructions: Return home and take your blood pressure medications. Return to care or call your doctor if you have any further problems or concerns. All discharge instructions reviewed with patient and/or family. Voiced understanding. VOLODYMYR ERICKSON MD Feb 21, 2019 04:17
[2019-02-21 04:28] VITALS: BP 176/85
== END 2019-02-21 04:29 | disposition home or self-care (01) ==
LOC: EDUNIT# 03:58 → ER 04:01
DX: L98.8 Other specified disorders of the skin and subcutaneous tissue (principal); I10 Essential (primary) hypertension; E78.00 Pure hypercholesterolemia, unspecified; F41.9 Anxiety disorder, unspecified; G43.909 Migraine, unspecified, not intractable, without status migrainosus; Z87.828 Personal history of other (healed) physical injury and trauma; Z79.82 Long term (current) use of aspirin; Z90.49 Acquired absence of other specified parts of digestive tract; Z90.710 Acquired absence of both cervix and uterus; Z90.722 Acquired absence of ovaries, bilateral
CPT/HCPCS: 99282

== ENCOUNTER 2019-03-30 13:10 | Emergency (ER) | payer MEDICARE, OTHER ==
[~2019-03-30] VITALS: Ht 165 cm; Wt 90.7 kg
--- NOTE | 2019-03-30 13:23 | ED Upper Extremity ---
General Chief Complaint: Upper Extremity Stated Complaint: FALL - RIGHT SHOULDER PAIN Nursing Triage Note: PT AMBULATE TO TRIAGE WITH C/O RIGHT SHOULDER PAIN. PT STATES SHE WAS CARRYING A THREE GALLON JUG OF SWEET TEA AND TRIPPED AND FELL. PT STATES SHE DID NOT FALL ON THE SHOULDER. PT STATES SHE DID NOT HIT HER HEAD AND NO LOC. Nursing Sepsis Screen: No Definite Risk Source: patient Exam Limitations: no limitations History of Present Illness Date Seen by Provider: Mar 30, 2019 Time Seen by Provider: 13:22 Initial Comments To ER with reports of right shoulder pain after she dropped a picture of sweet tea and then slipped landing on her right side. Did not hit her head, no other injury. Onset: just prior to arrival Severity: moderate Pain/Injury Location: right shoulder Method of Injury: unknown Modifying Factors: Worse With Movement Allergies and Home Medications Allergies Coded Allergies: No Known Drug Allergies (Unverified , 01/09/15) Home Medications Acetaminophen/Diphenhydramine 1 Each Tablet, 2 TAB PO HS PRN for MILD PAIN/SLEEP, (Reported) Aspirin 81 Mg Tablet.dr, 81 MG PO DAILY, (Reported) Aspirin/Acetaminophen/Caffeine 1 Each Tablet, 2 EACH PO Q6-8HR PRN for Headache, (Reported) Atorvastatin Calcium 10 Mg Tablet, 10 MG PO DAILY Prescribed by: HOLLIE HEATON on 02/20/19 1033 Diphenhydramine HCl 25 Mg Capsule, 25 MG PO TID PRN for ALLERGIES, (Reported) Hydrocodone/Acetaminophen 1 Each Tablet, 1 TAB PO Q6H Prescribed by: ASH MUSA on 03/30/19 1354 Lisinopril 20 Mg Tablet, 20 MG PO DAILY, (Reported) Metoprolol Tartrate 25 Mg Tablet, 25 MG PO BID, (Reported) Patient Home Medication List Home Medication List Reviewed: Yes Review of Systems Constitutional: see HPI EENTM: see HPI Respiratory: no symptoms reported Cardiovascular: no symptoms reported Genitourinary: no symptoms reported Musculoskeletal: see HPI Skin: no symptoms reported Psychiatric/Neurological: No Symptoms Reported Past Csnpytk-Gyilhj-Wnimum Hx Patient Social History 2nd Hand Smoke Exposure: No Recent Foreign Travel: No Contact w/Someone Who Travel: No Recent Infectious Disease Expo: No Recent Hopitalizations: Yes (HEART CATH 02/20/19) Physical Abuse: No Sexual Abuse: No Mistreated: No Fear: No Immunizations Up To Date Date of Pneumonia Vaccine: Mar 11, 2016 Seasonal Allergies Seasonal Allergies: No Past Medical History Surgeries: Yes ( X 3; HYST/BSO; STOMACH STAPLING / BARIATRIC SURGERY) Abdominal, Appendectomy, Cardiac, Section, Gallbladder, Hysterectomy, Oophorectomy Respiratory: No Currently Using CPAP: No Cardiac: Yes Heart Murmur, High Cholesterol, Hypertension Neurological: Yes Concussion, Headaches /Migraines 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 5.0oz. [id number]; 33.00 BMI Method:Stated General Appearance: WD/WN, no apparent distress HEENT: PERRL/EOMI, normal ENT inspection Respiratory: no respiratory distress, no accessory muscle use Shoulder: normal inspection, pain, soft tissue tenderness Elbow/Forearm: normal inspection, non-tender Hand: normal inspection, non-tender Neurologic/Psychiatric: alert, normal mood/affect, oriented x 3 Skin: normal color, warm/dry Strong radial pulse normal movement of the fingers normal thumbs-up normal okay sign. Progress/Results/Core Measures Results/Orders My Orders Orders - ASH MUSA APRN Shoulder, Right, 3 Views (03/30/19 13:21) Hydrocodone/Apap 5/325 Tablet (Lortab 5 (03/30/19 13:30) Bupivacaine 0.5% Injection (Sensorcaine (03/30/19 14:15) Bupivacaine 0.5% Injection (Sensorcaine (03/30/19 14:08) Medications Given in ED Current Medications Medications Dose Ordered Sig/Hammad Route Start Time Stop Time Status Last Admin Dose Admin Acetaminophen/ Hydrocodone Bitart 1 tab ONCE ONCE PO 03/30/19 13:30 03/30/19 13:31 DC 03/30/19 13:26 1 TAB Vital Signs/I&O 03/30/19 13:13 Temp 36.8 Pulse 77 Resp 18 B/P (MAP) 192/99 (130) O2 Delivery Room Air Blood Pressure Mean: 130 Departure Communication (Admissions) 1407-for pain control with hydrocodone. We'll do a hematoma block using 5ml 0.5% bupivicaine without epi. her pain is very localized to this fracture site. Impression Primary Impression: Fracture of humeral head, closed Qualified Codes: S42.291A - Other displaced fracture of upper end of right humerus, initial encounter for closed fracture Disposition: HOME, SELF-CARE Condition: Stable Departure-Patient Inst. Decision time for Depature: 13:52 Referrals: NO,LOCAL PHYSICIAN (PCP/Family) Primary Care Physician Patient Instructions: Upper Arm Fracture Add. Discharge Instructions: 1. Sling at all times except when showering 2. Pain medication as directed 3. Follow-up with your regular doctor next week. Call orthopedics on Monday to make an appointment to be seen within the next 1-3 weeks. All discharge instructions reviewed with patient and/or family. Voiced understanding. Scripts Hydrocodone/Acetaminophen (Cuddy 5-325 Tablet) 1 Each Tablet 1 TAB PO Q6H for Pain MDD 10 TABS for 7 Days, #30 TAB Prov: ASH MUSA APRN 03/30/19 ASH MUSA APRN Mar 30, 2019 13:23
[2019-03-30] MEDS ORDERED: HYDROcodone/APAP 5 MG/325 MG (LORTAB) TAB PO ONE (13:30)
[2019-03-30] MEDS ORDERED: HYDR-4226 PO (13:54)
--- NOTE | 2019-03-30 14:05 | Diagnostic Imaging Report ---
EXAMINATION: Right shoulder at 0151 hours. INDICATION: Fell. Shoulder pain. Three views were obtained. There are no prior right shoulder examinations available for comparison. FINDINGS: There is an impacted slightly comminuted fracture of the surgical neck of the humerus and the humeral head. There is no evidence for a dislocation. There is moderate degenerative disease of the glenohumeral joint and the acromioclavicular joint. There is a faint radiopaque ringlike density in the soft tissues lateral to the proximal humerus on the Grashey view. This also seems to be present on the external rotation AP view. This finding is of uncertain etiology. This is unlikely to be clinically significant but if further study is desired, either CT or MRI would be recommended when the patient's condition permits. The soft tissues are otherwise unremarkable. IMPRESSION: 1. There is impacted slightly comminuted fracture involving the surgical neck and humeral head. There is no acute bony abnormality noted otherwise. 2. The 2 cm ringlike density in the soft tissues is of uncertain etiology. Considerations and recommendations as above. Dictated by: Dictated on workstation # [id number]
[2019-03-30] MEDS ORDERED: BUPIVACAINE 0.5% 30 ML (SENSORCAINE) VIAL ONE (14:08)
[2019-03-30] MEDS ORDERED: BUPIVACAINE 0.5% 30 ML (SENSORCAINE) VIAL INJ ONE (14:15)
[2019-03-30 14:16] VITALS: BP 189/91
== END 2019-03-30 14:16 | disposition home or self-care (01) ==
LOC: EDUNIT# 13:10 → ER 13:11
DX: S42.291A Other displaced fracture of upper end of right humerus, initial encounter for closed fracture (principal); I10 Essential (primary) hypertension; E78.00 Pure hypercholesterolemia, unspecified; G43.909 Migraine, unspecified, not intractable, without status migrainosus; Z90.710 Acquired absence of both cervix and uterus; Z90.722 Acquired absence of ovaries, bilateral; Z87.820 Personal history of traumatic brain injury; Z79.82 Long term (current) use of aspirin; Z90.49 Acquired absence of other specified parts of digestive tract; W01.0XXA Fall on same level from slipping, tripping and stumbling without subsequent striking against object, initial encounter
CPT/HCPCS: 73030

== ENCOUNTER → 2021-10-01 | Outpatient (CLI) | payer MEDICARE, OTHER ==
[~2021-10-01] MED LIST changes: -ACET-2469 PO; +ACET-3075 PO; +ASPI-1238 PO; -ASPI-983 PO; +HYDR-4226 PO; -LISI-552 PO; +LISI20TA26 PO; -MECL-106 PO; +MECL-149 PO; -SULF1TAB35 PO; +SULF1TAB38 PO
--- NOTE | 2021-10-01 11:07 | Diagnostic Imaging Report ---
CLINICAL INDICATION: Patient with low back pain and left leg weakness and pain. EXAM: MRI of the lumbar spine without contrast. Sequences include sagittal T2, sagittal T1, sagittal T2 fat-sat, and axial T2. COMPARISON: None. FINDINGS: There is no acute lumbar spine fracture. There are minimal Modic type I degenerative signal changes involving the L4-L5 level. There are small spurs involving the lumbar spine, most pronounced at the L4-L5 level. There is lower lumbar spine facet arthropathy. The visualized portions of the distal thoracic spinal cord, conus medullaris, and cauda equina nerve roots are unremarkable. The conus medullaris tip is seen at the L1-L2 intervertebral level. There is no significant paraspinal soft tissue abnormality. T12-L1: There is a small posterior disc bulge. There is no significant central canal or neural foramen narrowing. L1-L2: There is a subtle right paracentral disc bulge. There is no significant central spinal canal or neural foramen narrowing. L2-L3: There is a mild diffuse disc bulge and mild bilateral facet arthropathy. There is mild bilateral neural foramen narrowing. There is no significant central canal narrowing. L3-L4: There is subtle grade 1 anterolisthesis of L3 on L4. There is a diffuse disc bulge and severe bilateral facet arthropathy/hypertrophy. There is severe central canal stenosis. There is moderate bilateral neural foramen narrowing. L4-L5: There is a mild diffuse disc bulge and moderate loss of disk space height. There is moderate left facet arthropathy and mild right facet arthropathy. There is no significant central canal stenosis. There is moderate left neural foramen narrowing and mild right neural foramen narrowing. L5-S1: There is a mild loss of disc space height. There is mild right facet arthropathy. There is moderate left facet arthropathy and mild right facet arthropathy. There is no significant central canal stenosis. There is mild right neural foramen narrowing and [id number] left neural foramen narrowing. There is an annular tear involving the posterior aspect of the disc. IMPRESSION: 1: There is subtle grade 1 anterolisthesis of L3 on L4. There is a diffuse disc bulge and severe bilateral facet arthropathy/hypertrophy. There is severe central canal stenosis and moderate bilateral neural foramen narrowing. 2: The remainder of the lumbar spine demonstrates degenerative disease, as described above. Dictated by: Dictated on workstation # [id number]
== END ==
LOC: RAD 09:30
PROVIDERS: ATTEND Nurse Practitioner Family
DX: M47.817 Spondylosis without myelopathy or radiculopathy, lumbosacral region (principal); M51.37 Other intervertebral disc degeneration, lumbosacral region; M48.07 Spinal stenosis, lumbosacral region; M43.16 Spondylolisthesis, lumbar region
CPT/HCPCS: 72148

== ENCOUNTER → 2022-01-18 | Outpatient (CLI) | payer MEDICARE ==
[~2022-01-18] MED LIST changes: -ASPI-789 PO; +ASPI1TAB23 PO
[2022-01-18 14:24] LABS: BILIRUBIN,TOTAL 0.2 MG/DL (0.1-1.0); CALCIUM 9.8 MG/DL (8.5-10.1); CREATININE SERUM 0.8 MG/DL (0.60-1.30); POTASSIUM 3.8 MMOL/L (3.6-5.0); TOTAL PROTEIN 7.5 GM/DL (6.4-8.2)
== END ==
LOC: WOUNDCARE 12:25
PROVIDERS: ATTEND Family Medicine
DX: T81.31XA Disruption of external operation (surgical) wound, not elsewhere classified, initial encounter (principal); D50.9 Iron deficiency anemia, unspecified; E66.01 Morbid (severe) obesity due to excess calories; D46.9 Myelodysplastic syndrome, unspecified; M79.10 Myalgia, unspecified site; Z68.36 Body mass index [BMI] 36.0-36.9, adult
CPT/HCPCS: 11042; 80053; 82306; 82607; 82728; 82746; 83540; 83550; 85652; 86141; A6212; G0463; 36415

== ENCOUNTER → 2022-01-25 | Outpatient (CLI) | payer MEDICARE | LOC: WOUNDCARE 08:16 | PROVIDERS: ATTEND Family Medicine | DX: T81.31XA Disruption of external operation (surgical) wound, not elsewhere classified, initial encounter (principal); E66.01 Morbid (severe) obesity due to excess calories; D46.4 Refractory anemia, unspecified; M79.10 Myalgia, unspecified site; D50.9 Iron deficiency anemia, unspecified; Z68.36 Body mass index [BMI] 36.0-36.9, adult; D51.9 Vitamin B12 deficiency anemia, unspecified; I96 Gangrene, not elsewhere classified | CPT/HCPCS: 11042; A6212; G0463 ==

== ENCOUNTER → 2022-02-01 | Outpatient (CLI) | payer MEDICARE | LOC: WOUNDCARE 08:11 | PROVIDERS: ATTEND Family Medicine | DX: T81.31XA Disruption of external operation (surgical) wound, not elsewhere classified, initial encounter (principal); E66.01 Morbid (severe) obesity due to excess calories; D46.4 Refractory anemia, unspecified; M79.10 Myalgia, unspecified site; D50.9 Iron deficiency anemia, unspecified; D51.8 Other vitamin B12 deficiency anemias; I96 Gangrene, not elsewhere classified; Z68.36 Body mass index [BMI] 36.0-36.9, adult | CPT/HCPCS: 11042; A6212; G0463 ==

== ENCOUNTER → 2022-02-08 | Outpatient (CLI) | payer MEDICARE | LOC: WOUNDCARE 08:11 | PROVIDERS: ATTEND Family Medicine | DX: T81.31XA Disruption of external operation (surgical) wound, not elsewhere classified, initial encounter (principal); E66.01 Morbid (severe) obesity due to excess calories; D46.4 Refractory anemia, unspecified; M79.10 Myalgia, unspecified site; D50.9 Iron deficiency anemia, unspecified; Z68.36 Body mass index [BMI] 36.0-36.9, adult; D51.8 Other vitamin B12 deficiency anemias; I96 Gangrene, not elsewhere classified | CPT/HCPCS: 11042; A6212; G0463 ==

== ENCOUNTER 2022-04-30 14:09 | Emergency (ER) | payer MEDICARE, OTHER ==
[~2022-04-30] VITALS: Ht 165.1 cm; Wt 107.9 kg
[2022-04-30 15:03] LABS: BASOPHILS % (AUTO) 0 % (0-10); EOSINOPHILS # (AUTO) 0.2 10^3/uL (0.0-0.3); EOSINOPHILS % (AUTO) 1 % (0-10); HEMATOCRIT 34 % (35-52); HEMOGLOBIN 11.3 g/dL (11.5-16.0); LYMPHOCYTES # (AUTO) 5.3 10^3/uL (1.0-4.0); LYMPHOCYTES % (AUTO) 37 % (12-44); MEAN CORPUSCULAR HEMOGLOBIN 31 pg (25-34); MEAN CORPUSCULAR HGB CONC 33 g/dL (32-36); MEAN CORPUSCULAR VOLUME 93 fL (80-99); MEAN PLATELET VOLUME 9.2 fL (9.0-12.2); MONOCYTES # (AUTO) 1.2 10^3/uL (0.0-1.0); MONOCYTES % (AUTO) 8 % (0-12); NEUTROPHILS # (AUTO) 7.5 10^3/uL (1.8-7.8); NEUTROPHILS % (AUTO) 52 % (42-75); PLATELET COUNT 494 10^3/uL (130-400); WHITE BLOOD COUNT 14.4 10^3/uL (4.3-11.0)
[2022-04-30 15:09] LABS: INR 0.9 (0.8-1.4); PROTHROMBIN TIME PATIENT 12.7 SEC (12.2-14.7)
[2022-04-30 15:16] LABS: BILIRUBIN,TOTAL 0.2 MG/DL (0.1-1.0); CALCIUM 9.1 MG/DL (8.5-10.1); CREATININE SERUM 0.86 MG/DL (0.60-1.30); MAGNESIUM 2.2 MG/DL (1.6-2.4); POTASSIUM 3.9 MMOL/L (3.6-5.0); TOTAL PROTEIN 7.4 GM/DL (6.4-8.2)
--- NOTE | 2022-04-30 15:23 | Diagnostic Imaging Report ---
PATIENT HISTORY: Chest pain. TECHNIQUE: Single frontal view of the chest. COMPARISON: 02/20/2019. FINDINGS: The lung volumes are normal. No focal consolidation is seen. No large pleural effusion or pneumothorax is seen. The cardiomediastinal silhouette is normal in size and contour. No acute osseous abnormality is seen. There are surgical clips in the upper abdomen. IMPRESSION: No acute pulmonary abnormality seen. Dictated by: Dictated on workstation # [id number]
[2022-04-30] MEDS ORDERED: KETOROLAC 30 MG/ML VIAL IVP ONE (15:30)
[2022-04-30 15:38] LABS: LYMPHOCYTES % (MANUAL) 35 %; MONOCYTES % (MANUAL) 8 %; NEUTROPHILS % (MANUAL) 57 %; PLATELET ESTIMATE INCREASED
[2022-04-30 15:39] LABS: RBC MORPH NORMAL
[2022-04-30] MEDS ORDERED: IOHEXOL 350 MG/ML 100 ML (OMNIPAQUE 350) VIAL IV ONE (16:30)
[2022-04-30] MEDS ORDERED: NS 100 ML (IVPB) BAG IV ONE (16:30)
[2022-04-30] MEDS ORDERED: HOLD METFORMIN - RECEIVED CONTRAST 20 ML VIAL IV SCH (16:30)
--- NOTE | 2022-04-30 16:47 | Diagnostic Imaging Report ---
PROCEDURE: CT angiography of the chest with contrast. TECHNIQUE: Multiple contiguous axial images were obtained through the chest after uneventful bolus administration of intravenous contrast. 3D reconstructed CTA MIP acquisitions were also performed. Auto Exposure Controls were utilized during the CT exam to meet ALARA standards for radiation dose reduction. INDICATION: Chest pain, irregular heart rate. COMPARISON: 04/30/2022 radiographs. FINDINGS: The pulmonary arteries are diagnostic to the segmental level. There is no filling defect to indicate a pulmonary embolus. The aorta is normal in caliber. The heart is normal in size. There is no pericardial effusion. No mediastinal adenopathy is seen. There is no axillary adenopathy. There is no pleural effusion or pneumothorax. There is dependent atelectasis in the lung bases. No central endobronchial lesion is seen. There is a small eventration along the left hemidiaphragm. No mass is seen. Imaged portions of the upper abdomen demonstrate no acute abnormality. There is artifact from postsurgical changes. No acute osseous abnormality is seen. There are degenerative changes in the spine. IMPRESSION: No pulmonary embolus. No acute pulmonary abnormality is seen. Dictated by: Dictated on workstation # [id number]
--- NOTE | 2022-04-30 17:28 | ED Chest Pain ---
General Chief Complaint: Cardiac/General Problems Stated Complaint: IRR HEART RATE/SOA/RETAINING FLUID Nursing Triage Note: PT AMBULATE TO ROOM 03 WITH C/O IRREGULAR HEART BEAT AND CHEST PAIN STARTING AT 1000 TODAY. PT REPORTS BEING TREATED FOR PNEUMONIA AT [facility] FOR THE PREVIOUS X10 DAYS WITH ABX, STEROIDS, AND X2 INHALERS. Source: patient, old records Exam Limitations: no limitations History of Present Illness Date Seen by Provider: Apr 30, 2022 Time Seen by Provider: 14:57 Allergies and Home Medications Allergies Coded Allergies: No Known Drug Allergies (Unverified , 01/09/15) Patient Home Medication List Home Medication List Reviewed: Yes Acetaminophen/Diphenhydramine (Tylenol Pm Ex-Strength Caplet) 1 Each Tablet, 2 TAB PO HS PRN for MILD PAIN/SLEEP, (Reported) Entered as Reported by: AGUSTO HARO on 01/10/19 0942 Aspirin (Aspirin EC) 81 Mg Tablet.dr, 81 MG PO DAILY, (Reported) Entered as Reported by: BILLY VERDE on 02/20/19 0835 Aspirin/Acetaminophen/Caffeine (Excedrin Migraine Caplet) 1 Each Tablet, 2 EACH PO Q6-8HR PRN for Headache, (Reported) Entered as Reported by: BILLY VERDE on 02/20/19 0835 Atorvastatin Calcium (Lipitor) 10 Mg Tablet, 10 MG PO DAILY Prescribed by: HOLLIE LOPEZ on 02/20/19 1033 Diphenhydramine HCl (Benadryl) 25 Mg Capsule, 25 MG PO TID PRN for ALLERGIES, (Reported) Entered as Reported by: AGUSTO HARO on 01/10/19 0942 Hydrocodone/Acetaminophen (Hydrocodone/Acetaminophen 5 MG/325 MG TAB) 1 Each Tablet, 1 TAB PO Q6H Prescribed by: ASH MUSA on 03/30/19 1354 Lisinopril (Lisinopril) 20 Mg Tablet, 20 MG PO DAILY, (Reported) Entered as Reported by: BILLY VERDE on 02/20/19 0835 Metoprolol Tartrate (Metoprolol Tartrate) 25 Mg Tablet, 25 MG PO BID, (Reported) Entered as Reported by: BILLY VERDE on 02/20/19 0835 Past Mqkecnn-Wpchoz-Smeird Hx Patient Social History Smoking Status: Never a Smoker Smokeless Tobacco Frequency: Never a User Use of E-Cig and/or Vaping dev: No Substance use?: No Alcohol Use?: No Pt feels they are or have been: No Immunizations Up To Date COVID19 Vaccine Manager Medical: MODERNA Seasonal Allergies Seasonal Allergies: No Past Medical History Surgeries: Yes ( X 3; HYST/BSO; STOMACH STAPLING / BARIATRIC SURGERY) Abdominal, Appendectomy, Cardiac, Section, Gallbladder, Hysterectomy, Oophorectomy Respiratory: No Currently Using CPAP: No Cardiac: Yes Heart Murmur, High Cholesterol, Hypertension Neurological: Yes Concussion, Headaches /Migraines 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 5.0oz. [id number]; 39.00 BMI Method:Stated Progress/Results/Core Measures Results/Orders Lab Results Laboratory Tests Test 04/30/22 14:28 Range/Units White Blood Count 14.4 H 4.3-11.0 10^3/uL Red Blood Count 3.64 L 3.80-5.11 10^6/uL Hemoglobin 11.3 L 11.5-16.0 g/dL Hematocrit 34 L 35-52 % Mean Corpuscular Volume 93 80-99 fL Mean Corpuscular Hemoglobin 31 25-34 pg Mean Corpuscular Hemoglobin Concent 33 32-36 g/dL Red Cell Distribution Width 14.0 10.0-14.5 % Platelet Count 494 H 130-400 10^3/uL Mean Platelet Volume 9.2 9.0-12.2 fL Immature Granulocyte % (Auto) 1 % Neutrophils (%) (Auto) 52 42-75 % Lymphocytes (%) (Auto) 37 12-44 % Monocytes (%) (Auto) 8 0-12 % Eosinophils (%) (Auto) 1 0-10 % Basophils (%) (Auto) 0 0-10 % Neutrophils # (Auto) 7.5 1.8-7.8 10^3/uL Lymphocytes # (Auto) 5.3 H 1.0-4.0 10^3/uL Monocytes # (Auto) 1.2 H 0.0-1.0 10^3/uL Eosinophils # (Auto) 0.2 0.0-0.3 10^3/uL Basophils # (Auto) 0.0 0.0-0.1 10^3/uL Immature Granulocyte # (Auto) 0.2 H 0.0-0.1 10^3/uL Neutrophils % (Manual) 57 % Lymphocytes % (Manual) 35 % Monocytes % (Manual) 8 % Platelet Estimate INCREASED Blood Morphology Comment NORMAL Prothrombin Time 12.7 12.2-14.7 SEC INR Comment 0.9 0.8-1.4 Activated Partial Thromboplast Time 29 24-35 SEC D-Dimer 0.85 H 0.00-0.49 UG/ML Sodium Level 131 L 135-145 MMOL/L Potassium Level 3.9 3.6-5.0 MMOL/L Chloride Level 97 L 98-107 MMOL/L Carbon Dioxide Level 21 21-32 MMOL/L Anion Gap 13 5-14 MMOL/L Blood Urea Nitrogen 18 7-18 MG/DL Creatinine 0.86 0.60-1.30 MG/DL Estimat Glomerular Filtration Rate 73 BUN/Creatinine Ratio 21 Glucose Level 90 70-105 MG/DL Calcium Level 9.1 8.5-10.1 MG/DL Corrected Calcium 9.1 8.5-10.1 MG/DL Magnesium Level 2.2 1.6-2.4 MG/DL Total Bilirubin 0.2 0.1-1.0 MG/DL Aspartate Amino Transf (AST/SGOT) 43 H 5-34 U/L Alanine Aminotransferase (ALT/SGPT) 33 0-55 U/L Alkaline Phosphatase 91 40-136 U/L Myoglobin 83.8 10.0-92.0 NG/ML Troponin I < 0.028 <0.028 NG/ML C-Reactive Protein High Sensitivity 0.26 0.00-0.50 MG/DL B-Type Natriuretic Peptide 83.3 <100.0 PG/ML Total Protein 7.4 6.4-8.2 GM/DL Albumin 4.0 3.2-4.5 GM/DL My Orders Orders - VOLODYMYR ERICKSON MD Ekg Tracing (04/30/22 14:20) Cbc With Automated Diff (04/30/22 14:57) Magnesium (04/30/22 14:57) Chest 1 View, Ap/Pa Only (04/30/22 14:57) Comprehensive Metabolic Panel (04/30/22 14:57) Myoglobin Serum (04/30/22 14:57) Protime With Inr (04/30/22 14:57) Partial Thromboplastin Time (04/30/22 14:57) O2 (04/30/22 14:57) Monitor-Rhythm Ecg Trace Only (04/30/22 14:57) Ed Iv/Invasive Line Start (04/30/22 14:57) Troponin I [place] (04/30/22 14:57) Hs C Reactive Protein (04/30/22 14:57) Bnp Vitor (04/30/22 14:57) Manual Differential (04/30/22 14:28) Ketorolac Injection (Toradol Injection) (04/30/22 15:30) Fibrin Degradation Products (04/30/22 15:29) Ct Angio Chest W (04/30/22 16:18) Iohexol Injection (Omnipaque 350 Mg/Ml 1 (04/30/22 16:30) Received Contrast (Hold Metformin- Contr (04/30/22 16:30) Ns (Ivpb) (Sodium Chloride 0.9% Ivpb Bag (04/30/22 16:30) Medications Given in ED Current Medications Medications Dose Ordered Sig/Hammad Route Start Time Stop Time Status Last Admin Dose Admin Iohexol 100 ml ONCE ONCE IV 04/30/22 16:30 04/30/22 16:31 DC 04/30/22 16:40 77 ML Ketorolac Tromethamine 30 mg ONCE ONCE IVP 04/30/22 15:30 04/30/22 15:31 DC 04/30/22 15:52 30 MG Sodium Chloride 100 ml ONCE ONCE IV 04/30/22 16:30 04/30/22 16:31 DC 04/30/22 16:40 80 ML Vital Signs/I&O 04/30/22 04/30/22 14:18 17:57 Temp 35.6 35.6 Pulse 81 81 Resp 18 18 B/P (MAP) 167/89 (115) 135/80 Pulse Ox 99 O2 Delivery Room Air Room Air Blood Pressure Mean: 115 Initial ECG Impression Date: Apr 30, 2022 Initial ECG Impression Time: 14:22 Initial ECG Rate: 78 Initial ECG Rhythm: Normal Sinus Initial ECG Intervals: Normal Initial ECG Impression: Normal Comment Normal sinus rhythm with no ST elevation or depression. No abnormal intervals or axis deviation. Departure Impression Primary Impression: Atypical chest pain Additional Impression: Edema Qualified Codes: R60.9 - Edema, unspecified Disposition: 01 HOME, SELF-CARE Condition: Improved Departure-Patient Inst. Decision time for Depature: 17:26 Referrals: MANINDER PERALTA APRN (PCP/Family) Primary Care Physician Patient Instructions: Chest Pain Add. Discharge Instructions: Your swelling may be due to recent steroid use. If so, this should gradually improve over the next 1 to 2 weeks. You may elevate your feet toward the level of your heart to help reduce leg edema. Drink plenty of water and avoid excessive salt to help reduce swelling. Your heart and lung work-up was unremarkable in the emergency room. Please notify Dr. Lopez's office of your episode of chest pain on Monday. For pain you may take Tylenol (acetaminophen) up to 1000 mg every 6 hours as needed. Return to the ER if you have worsening symptoms. All discharge instructions reviewed with patient and/or family. Voiced understanding. VOLODYMYR ERICKSON MD Apr 30, 2022 17:28
[2022-04-30 17:57] VITALS: BP 135/80
== END 2022-04-30 17:57 | disposition home or self-care (01) ==
LOC: EDUNIT# 14:09 → ER 14:12
DX: R07.89 Other chest pain (principal); R60.9 Edema, unspecified; R00.2 Palpitations
CPT/HCPCS: 36415; 71045; 71275; 80053; 83735; 83874; 83880; 84484; 85007; 85027; 85379; 85610; 85730; 86141; 93005; 93041

== ENCOUNTER 2023-05-03 19:26 | Inpatient (IN) | payer MEDICARE, MEDICAID ==
[~2023-05-03] VITALS: Ht 157 cm; Wt 116.0 kg
[~2023-05-03 19:26] MED LIST changes: -MECL-149 PO; +MECL-291 PO
[2023-05-03] MEDS ORDERED: fentaNYL INJECTION 100 MCG/2 ML VIAL IVP STA (20:00)
[2023-05-03] MEDS ORDERED: NS IV 1000 ML 1,000 ML IV STA ×2 (20:00→20:35)
[2023-05-03] MEDS ORDERED: ONDANSETRON INJECTION 4 MG/2 ML (SDV) IVP ONE (20:00)
--- NOTE | 2023-05-03 20:06 | ED Abdominal Pain ---
General Chief Complaint: Abdominal/GI Problems Stated Complaint: VOMITING, ABD PAIN Nursing Triage Note: pt to triage via WC with c/o N/V/epigastric pain x 5 days. pt states was getting better until last night the pain came back. pt has hernia. pt not able to keep any food/drink down today. Source of Information: Patient Exam Limitations: No Limitations History of Present Illness Date Seen by Provider: May 03, 2023 Time Seen by Provider: 20:03 Initial Comments Patient is a 73-year-old female with a history of C-sections, appendectomy, cholecystectomy who presents ED with abdominal pain and vomiting. She states she started developing upper abdominal pain last night. Described as burning fairly constant that has intensified over the evening. She did have an episode of vomiting on Monday but did get improvement until last night when abdominal pain intensified. Started developing diarrhea on Monday denies any blood or mucousy stools but. She does report some dark stools but states she is on iron. She denies of any fever, chills, chest pain, shortness of breath or cough. She denies of any urinary symptoms. Attempted to take Tylenol but every time she does she vomits. Denies eating anything different or any recent travels. Denies history inflammatory bowel disease or IBS. She does report a history of an abdominal hernia. Allergies and Home Medications Allergies Coded Allergies: No Known Drug Allergies (Unverified , 01/09/15) Patient Home Medication List Home Medication List Reviewed: Yes Acetaminophen (Tylenol Extra Strength) 500 Mg Tablet, 1,000 MG PO Q8H PRN for PAIN-MILD (1-4), (Reported) Entered as Reported by: BILLY VERDE on 05/04/231127 Last Action: Held Acetaminophen/Diphenhydramine (Tylenol Pm Ex-Strength Caplet) 500 Mg-25 Mg Tablet, 3 EACH PO HS, (Reported) Entered as Reported by: BILLY VERDE on 05/04/231127 Last Action: Reviewed Ascorbate Calcium (Vitamin C) 500 Mg Tablet, 500 MG PO DAILY, (Reported) Entered as Reported by: BILLY VERDE on 05/04/231127 Last Action: Reviewed Atorvastatin Calcium (Atorvastatin Calcium) 10 Mg Tablet, 10 MG PO DAILY, (Reported) Entered as Reported by: BILLY VERDE on 05/04/231127 Last Action: Continued Calcium Carbonate (Calcium) 600 Mg Calcium (1500 Mg) Tablet, 600 MG PO DAILY, (Reported) Entered as Reported by: BILLY VERDE on 05/04/231127 Last Action: Held Cholecalciferol (Vitamin D3) (Vitamin D3) 50 Mcg (2000 Unit) Tablet, 50 MCG PO DAILY, (Reported) Entered as Reported by: BILLY VERDE on 05/04/231127 Last Action: Reviewed Cyanocobalamin (Vitamin B-12) (Vitamin B-12) 1,000 Mcg Capsule, 1,000 MCG PO DAILY, (Reported) Entered as Reported by: BILLY VERDE on 05/04/231127 Last Action: Reviewed Diphenhydramine HCl (Benadryl Allergy) 25 Mg Tablet, 50 MG PO DAILY, (Reported) Entered as Reported by: BILLY VERDE on 05/04/231127 Last Action: Held Duloxetine HCl (Duloxetine HCl) 60 Mg Capsule.dr, 60 MG PO 1200, (Reported) Entered as Reported by: BILLY VERDE on 05/04/231127 Last Action: Reviewed Fish Oil/Dha/Epa (Fish Oil 1,200 mg Fish Oil) 1,200 Mg-144 Mg-216 Mg Capsule, 1 EACH PO DAILY, (Reported) Entered as Reported by: BILLY VERDE on 05/04/231127 Last Action: Reviewed Hydrochlorothiazide (Hydrochlorothiazide) 25 Mg Tablet, 25 MG PO HS, (Reported) Entered as Reported by: BILLY VERDE on 05/04/231127 Last Action: Held Hydrocodone/Acetaminophen (Hydrocodone-Acetamin 7.5-325) 7.5 Mg-325 Mg Tablet, 1 EACH PO Q4H PRN for PAIN-BREAKTHROUGH Prescribed by: LES MONROY on 05/04/23 1726 Lisinopril (Lisinopril) 20 Mg Tablet, 40 MG PO DAILY, (Reported) Entered as Reported by: BILLY VERDE on 02/20/19 0835 Last Action: Continued Metoprolol Succinate (Metoprolol Succinate) 50 Mg Tab.er.24h, 50 MG PO DAILY, (Reported) Entered as Reported by: BILLY VERDE on 05/04/231127 Last Action: Continued Potassium Chloride (Potassium Chloride) 20 Meq Tab.er.prt, 20 MEQ PO DAILY, (Reported) Entered as Reported by: BILLY VERDE on 05/04/231127 Last Action: Continued Turmeric/Turmeric Root Extract (Turmeric 500 mg Capsule) 450 Mg-50 Mg Capsule, 2 EACH PO 1200, (Reported) Entered as Reported by: BILLY VERDE on 05/04/231127 Last Action: Reviewed Zinc Sulfate (Zinc) 50 Mg Zinc (220 Mg) Tablet, 50 MG PO DAILY, (Reported) Entered as Reported by: BILLY VERDE on 05/04/231127 Last Action: Reviewed Discontinued Medications Acetaminophen/Diphenhydramine (Tylenol Pm Ex-Strength Caplet) 1 Each Tablet, 2 T AB PO HS PRN for MILD PAIN/SLEEP, (Reported) Discontinued Reason: No Longer Taking Entered as Reported by: AGUSTO HARO on 01/10/19941 Last Action: Discontinued Aspirin (Aspirin EC) 81 Mg Tablet.dr, 81 MG PO DAILY, (Reported) Discontinued Reason: No Longer Taking Entered as Reported by: BILLY VERDE on 02/20/19834 Last Action: Discontinued Aspirin/Acetaminophen/Caffeine (Excedrin Migraine Caplet) 1 Each Tablet, 2 EACH PO Q6-8HR PRN for Headache, (Reported) Discontinued Reason: No Longer Taking Entered as Reported by: BILLY VERDE on 02/20/19834 Last Action: Discontinued Atorvastatin Calcium (Lipitor) 10 Mg Tablet, 10 MG PO DAILY Discontinued Reason: No Longer Taking Prescribed by: HOLLIE HEATON on 02/20/19 1033 Last Action: Discontinued Diphenhydramine HCl (Benadryl) 25 Mg Capsule, 25 MG PO TID PRN for ALLERGIES, (Reported) Discontinued Reason: No Longer Taking Entered as Reported by: AGUSTO HARO on 01/10/19941 Last Action: Discontinued Hydrocodone/Acetaminophen (Hydrocodone/Acetaminophen 5 MG/325 MG TAB) 1 Each Tablet, 1 TAB PO Q6H Discontinued Reason: No Longer Taking Prescribed by: ASH MUSA on 03/30/19 1354 Last Action: Discontinued Metoprolol Tartrate (Metoprolol Tartrate) 25 Mg Tablet, 25 MG PO BID, (Reported) Discontinued Reason: No Longer Taking Entered as Reported by: BILLY VERDE on 9/18/19 0835 Last Action: Discontinued Review of Systems Review of Systems Constitutional: No chills, No diaphoresis, No malaise, No weakness EENTM: No Double Vision, No Eye Pain Respiratory: Denies Cough, Denies Orthopnea Gastrointestinal: Abdominal Pain, Diarrhea, Nausea, Vomiting Genitourinary: Denies Burning, Denies Discharge, Denies Drainage, Denies Frequency Musculoskeletal: No back pain, No joint pain Skin: No change in color, No change in hair/nails All Other Systems Reviewed Negative Unless Noted: Yes Past Bvrkirx-Fbmoqq-Suzmph Hx Patient Social History Tobacco Use?: No Substance use?: No Alcohol Use?: No Immunizations Up To Date Influenza Vaccine Up-to-Date: No; Not Current Seasonal Allergies Seasonal Allergies: No Past Medical History Surgeries: Yes ( X 3; HYST/BSO; STOMACH STAPLING / BARIATRIC SURGERY) Abdominal, Appendectomy, Cardiac, Section, Gallbladder, Hysterectomy, Oophorectomy Respiratory: No Currently Using CPAP: No Cardiac: Yes Heart Murmur, High Cholesterol, Hypertension Neurological: Yes Concussion, Headaches /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 5.0oz. 95.478422dk; 45.00 BMI Method:Stated General Appearance: WD/WN, no apparent distress HEENT: PERRL/EOMI, normal ENT inspection, TMs normal, pharynx normal Neck: non-tender, full range of motion, supple Respiratory: chest non-tender, lungs clear, normal breath sounds, no respiratory distress, no accessory muscle use Cardiovascular: regular rate, rhythm, no edema, no gallop Gastrointestinal: normal bowel sounds, no organomegaly, tenderness (Left upper quadrant tenderness. Normal bowel sounds throughout. 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, no motor/sensory deficits, alert, normal mood/affect, oriented x 3 Skin: normal color, warm/dry Focused Exam Lactate Level 05/03/23 21:16: Lactic Acid Level 2.54*H Lactic Acid Level Laboratory Tests Test 05/03/23 21:16 Lactic Acid Level 2.54 MMOL/L (0.50-2.00) *H Progress/Results/Core Measures Results/Orders Lab Results Laboratory Tests Test 05/03/23 19:56 05/03/23 20:32 05/03/23 21:16 Range/Units White Blood Count 15.8 H 4.3-11.0 10^3/uL Red Blood Count 4.58 3.80-5.11 10^6/uL Hemoglobin 14.7 11.5-16.0 g/dL Hematocrit 45 35-52 % Mean Corpuscular Volume 98 80-99 fL Mean Corpuscular Hemoglobin 32 25-34 pg Mean Corpuscular Hemoglobin Concent 33 32-36 g/dL Red Cell Distribution Width 13.0 10.0-14.5 % Platelet Count 441 H 130-400 10^3/uL Mean Platelet Volume 10.1 9.0-12.2 fL Immature Granulocyte % (Auto) 0 % Neutrophils (%) (Auto) 83 H 42-75 % Lymphocytes (%) (Auto) 12 12-44 % Monocytes (%) (Auto) 5 0-12 % Eosinophils (%) (Auto) 0 0-10 % Basophils (%) (Auto) 0 0-10 % Neutrophils # (Auto) 13.1 H 1.8-7.8 10^3/uL Lymphocytes # (Auto) 1.9 1.0-4.0 10^3/uL Monocytes # (Auto) 0.7 0.0-1.0 10^3/uL Eosinophils # (Auto) 0.1 0.0-0.3 10^3/uL Basophils # (Auto) 0.1 0.0-0.1 10^3/uL Immature Granulocyte # (Auto) 0.1 0.0-0.1 10^3/uL Neutrophils % (Manual) 88 % Lymphocytes % (Manual) 9 % Monocytes % (Manual) 2 % Basophils % (Manual) 1 % Platelet Estimate SLIGHTLY ELEVATED Clumped Platelets OCCASIONAL Blood Morphology Comment NORMAL Prothrombin Time 12.8 12.2-14.7 SEC INR Comment 0.9 0.8-1.4 Activated Partial Thromboplast Time 32 24-35 SEC Sodium Level 132 L 135-145 MMOL/L Potassium Level 3.7 3.6-5.0 MMOL/L Chloride Level 97 L 98-107 MMOL/L Carbon Dioxide Level 17 L 21-32 MMOL/L Anion Gap 18 H 5-14 MMOL/L Blood Urea Nitrogen 23 H 7-18 MG/DL Creatinine 1.29 0.60-1.30 MG/DL Estimat Glomerular Filtration Rate 44 BUN/Creatinine Ratio 18 Glucose Level 207 H 70-105 MG/DL Calcium Level 11.2 H 8.5-10.1 MG/DL Corrected Calcium 8.5-10.1 MG/DL Magnesium Level 1.9 1.6-2.4 MG/DL Total Bilirubin 0.3 0.1-1.0 MG/DL Aspartate Amino Transf (AST/SGOT) 106 H 5-34 U/L Alanine Aminotransferase (ALT/SGPT) 68 H 0-55 U/L Alkaline Phosphatase 102 40-136 U/L Total Protein 8.7 H 6.4-8.2 GM/DL Albumin 4.7 H 3.2-4.5 GM/DL Lipase 17 8-78 U/L Urine Color YELLOW Urine Clarity CLEAR Urine pH 5.0 5-9 Urine Specific [place] >=1.030 1.016-1.022 Urine Protein 2+ H NEGATIVE Urine Glucose (UA) NEGATIVE NEGATIVE Urine Ketones NEGATIVE NEGATIVE Urine Nitrite NEGATIVE NEGATIVE Urine Bilirubin NEGATIVE NEGATIVE Urine Urobilinogen 0.2 < = 1.0 MG/DL Urine Leukocyte Esterase NEGATIVE NEGATIVE Urine RBC (Auto) NEGATIVE NEGATIVE Urine RBC 2-5 H /HPF Urine WBC 5-10 H /HPF Urine Squamous Epithelial Cells 5-10 /HPF Urine Crystals PRESENT H /LPF Urine Amorphous Sediment MOD ANASTASIA URATES H /LPF Urine Bacteria MODERATE H /HPF Urine Casts PRESENT /LPF Urine Hyaline Casts 25-50 H /LPF Urine Mucus SMALL H /LPF Urine Culture Indicated YES Lactic Acid Level 2.54 *H 0.50-2.00 MMOL/L Micro Results Microbiology 05/03/23 Urine Culture - Preliminary, Resulted Gram Negative Bacillus 1 My Orders Orders - MILAGRO BROWN PA Cbc And Automated Diff (05/03/23 20:00) Comprehensive Metabolic Panel (05/03/23 20:00) Lipase (05/03/23 20:00) Ua Culture If Indicated (05/03/23 20:00) Ns Iv 1000 Ml (Ns Iv 1000 Ml) (05/03/23 20:00) Magnesium (05/03/23 20:00) Ondansetron Injection (Ondansetron Inj (05/03/23 20:00) Fentanyl Injection (Fentanyl Injection (05/03/23 20:00) Ct Abdomen/Pelvis W (05/03/23 20:00) Iohexol Injection (Omnipaque 350 Mg/Ml 1 (05/03/23 20:15) Received Contrast (Hold Metformin- Contr (05/03/23 20:15) Ns (Ivpb) 100 Ml (Sodium Chloride 0.9% 1 (05/03/23 20:15) Manual Differential (05/03/23 19:56) Ns Iv 1000 Ml (Ns Iv 1000 Ml) (05/03/23 20:35) Urine Culture (05/03/23 20:32) Lactic Acid Analyzer (05/03/23 21:11) Chest 1 View, Ap/Pa Only (05/03/23 21:18) Ekg Tracing (05/03/23 21:18) Ceftriaxone Iv/Im (Ceftriaxone Iv/Im) (05/03/23 21:18) Partial Thromboplastin Time (05/03/23 21:18) Protime With Inr (05/03/23 21:18) Medications Given in ED Vital Signs/I&O 05/03/23 19:35 Temp 37.3 Pulse 101 Resp 18 B/P (MAP) 126/81 (96) Pulse Ox 98 O2 Delivery Room Air Blood Pressure Mean: 96 Comment Sinus rhythm, 92 bpm, QRS duration 86 MS, QTc 426 MS. Departure Communication (PCP) Patient is a 73-year-old female who presents to the ED for abdominal pain vomiting diarrhea. History of ventral hernia, appendectomy, cholecystectomy, 3 , hysterectomy. Differential diagnosis small bowel obstruction, incarcerated versus strangulated hernia, gastroenteritis, colitis, pancreatitis. Patient in moderate pain on arrival. No active vomiting. Patient is afebrile. Slightly tachycardic. CBC, CMP, lipase, urinalysis was ordered. Patient white blood count returned back at 16. Chemistry showed a sodium 132, chloride 97, bicarb 17, anion gap 18, glucose 207, lactic acid 2.5 to, AST 106, ALT 68. Did obtain a lactic acid of 2.54 which is likely more related to dehydration. Other etiologies would be ischemic bowel. She does not appear to be in severe abdominal pain at this time suggesting ischemic bowel or strangulation. Urinalysis positive for red blood cells 2-5 and white blood cells 5-10. Questionable UTI. She did receive a dose of Rocephin. Pain improved with 50 mcg of fentanyl. Did start on a liter of fluid and received a second liter due to the dehydration. CT abdomen pelvis shows a ventral incarcerated hernia with a small bowel obstruction. Hard to palpate the hernia on exam. She does have a scar above her mid abdomen where the hernia is located. No severe tenderness on exam. Patient was discussed with Dr. Monroy general surgeon. Discussed all results. He recommended n.p.o. and surgery in the morning. Improvement of lactic acid. Improvement of pain. Recommended pain control and nausea medicati on. Recommended no further workup at this time. Impression Primary Impression: Incarcerated ventral hernia Additional Impression: Small bowel obstruction Disposition: ADMITTED INPATIENT Condition: Stable Admissions Decision to Admit Reason: Admit from ER (General) Decision to Admit/Date: May 03, 2023 Time/Decision to Admit Time: 21:33 Departure-Patient Inst. Referrals: MANINDER PERALTA APRN (PCP/Family) Primary Care Physician Scripts Hydrocodone/Acetaminophen (Hydrocodone-Acetamin 7.5-325) 7.5 Mg-325 Mg Tablet 1 EACH PO Q4H PRN for PAIN-BREAKTHROUGH, #35 TAB Prov: LES MONROY MD 05/04/23 MILAGRO BROWN May 03, 2023 20:06
[2023-05-03] MEDS ORDERED: NS 100 ML (IVPB) BAG IV ONE (20:15)
[2023-05-03] MEDS ORDERED: HOLD METFORMIN - RECEIVED CONTRAST 20 ML VIAL IV SCH (20:15)
[2023-05-03] MEDS ORDERED: IOHEXOL 350 MG/ML 100 ML (OMNIPAQUE 350) VIAL IV ONE (20:15)
[2023-05-03 20:16] LABS: BASOPHILS # (AUTO) 0.1 10^3/uL (0.0-0.1); BASOPHILS % (AUTO) 0 % (0-10); EOSINOPHILS # (AUTO) 0.1 10^3/uL (0.0-0.3); EOSINOPHILS % (AUTO) 0 % (0-10); HEMATOCRIT 45 % (35-52); HEMOGLOBIN 14.7 g/dL (11.5-16.0); LYMPHOCYTES # (AUTO) 1.9 10^3/uL (1.0-4.0); LYMPHOCYTES % (AUTO) 12 % (12-44); MEAN CORPUSCULAR HEMOGLOBIN 32 pg (25-34); MEAN CORPUSCULAR HGB CONC 33 g/dL (32-36); MEAN CORPUSCULAR VOLUME 98 fL (80-99); MEAN PLATELET VOLUME 10.1 fL (9.0-12.2); MONOCYTES # (AUTO) 0.7 10^3/uL (0.0-1.0); MONOCYTES % (AUTO) 5 % (0-12); NEUTROPHILS # (AUTO) 13.1 10^3/uL (1.8-7.8); NEUTROPHILS % (AUTO) 83 % (42-75); PLATELET COUNT 441 10^3/uL (130-400); WHITE BLOOD COUNT 15.8 10^3/uL (4.3-11.0)
[2023-05-03 20:25] LABS: ALBUMIN 4.7 GM/DL (3.2-4.5); CHLORIDE 97 MMOL/L (98-107); POTASSIUM 3.7 MMOL/L (3.6-5.0); SODIUM 132 MMOL/L (135-145)
[2023-05-03 20:26] LABS: CALCIUM 11.2 MG/DL (8.5-10.1)
[2023-05-03 20:27] LABS: GLUCOSE 207 MG/DL (70-105); TOTAL PROTEIN 8.7 GM/DL (6.4-8.2)
[2023-05-03 20:28] LABS: CARBON DIOXIDE 17 MMOL/L (21-32)
[2023-05-03 20:29] LABS: BILIRUBIN,TOTAL 0.3 MG/DL (0.1-1.0)
[2023-05-03 20:30] LABS: ALKALINE PHOSPHATASE 102 U/L (40-136)
[2023-05-03 20:31] LABS: CREATININE SERUM 1.29 MG/DL (0.60-1.30); GFR ESTIMATED 44
[2023-05-03 20:32] LABS: BUN/CREATININE RATIO 18
[2023-05-03 20:34] LABS: ALANINE AMINOTRANSFERASE 68 U/L (0-55); MAGNESIUM 1.9 MG/DL (1.6-2.4)
[2023-05-03 20:35] LABS: LIPASE 17 U/L (8-78)
[2023-05-03 20:41] LABS: BASOPHILS % (MANUAL) 1 %; LYMPHOCYTES % (MANUAL) 9 %; MONOCYTES % (MANUAL) 2 %; NEUTROPHILS % (MANUAL) 88 %
[2023-05-03 20:42] LABS: PLATELET CLUMPS OCCASIONAL; PLATELET ESTIMATE SLIGHTLY ELEVATED; RBC MORPH NORMAL
[2023-05-03 20:43] LABS: BILIRUBIN,URINE NEGATIVE (NEGATIVE); CLARITY,URINE CLEAR; COLOR,URINE YELLOW; GLUCOSE, URINE (UA) NEGATIVE (NEGATIVE); KETONES,URINE NEGATIVE (NEGATIVE); LEUKOCYTE ESTERASE ,URINE NEGATIVE (NEGATIVE); NITRITE,URINE NEGATIVE (NEGATIVE); PROTEIN,URINE 2+ (NEGATIVE)
[2023-05-03 20:50] LABS: AMORPHOUS SEDIMENT,UR MOD AMOR URATES /LPF; BACTERIA,URINE MODERATE /HPF
[2023-05-03 20:51] LABS: HYALINE CASTS, URINE 25-50 /LPF
--- NOTE | 2023-05-03 20:55 | Diagnostic Imaging Report ---
PROCEDURE: CT abdomen and pelvis with contrast. TECHNIQUE: Multiple contiguous axial images were obtained through the abdomen and pelvis after administration of intravenous contrast. Auto Exposure Controls were utilized during the CT exam to meet ALARA standards for radiation dose reduction. All CT scans use one or more of the following dose optimizing techniques: automated exposure control, MA and/or KvP adjustment based on patient size and exam type or iterative reconstruction. INDICATION: Epigastric pain x5 days. Lung bases are clear. Liver appears normal. Gallbladder surgically absent. Portal vein is patent. Common duct is mildly dilated. This is likely reservoir effect. Pancreas is normal. Spleen is not enlarged. Kidneys and adrenals appear normal. Small bowel is dilated. Patient has a ventral hernia above mid abdomen with incarcerated loop of small bowel. Afferent loop is distended. Efferent loop is decompressed suggesting it has been constructed within the hernia opening of the abdominal wall. The terminal ileum and colon are decompressed. There is no intraperitoneal free air or free fluid. IMPRESSION: Incarcerated small bowel and a midline ventral hernia causing small bowel obstruction. Dictated by: Dictated on workstation # [id number]
[2023-05-03] MEDS ORDERED: cefTRIAXone IV/IM 1,000 MG in NS (IVPB) 50 ML 50 ML IV STA (21:18)
--- NOTE | 2023-05-03 21:35 | Diagnostic Imaging Report ---
INDICATION: Preop anesthesia risk assessment, small bowel obstruction. Portable chest 9:14 PM Heart size and pulmonary vascularity are normal. Lungs are clear. There are no effusions or pneumothoraces. IMPRESSION: No acute abnormalities in the chest. Dictated by: Dictated on workstation # [id number]
[2023-05-03 21:43] LABS: INR 0.9 (0.8-1.4); PROTHROMBIN TIME PATIENT 12.8 SEC (12.2-14.7)
[2023-05-03 22:00] VITALS: BP 132/81
[2023-05-03] MEDS ORDERED: NS IV 1000 ML 1,000 ML ONE (22:17)
[2023-05-03] MEDS: NS IV 1000 ML 1,000 ML IV SCH (22:52)
[2023-05-03] MEDS: fentaNYL INJECTION 100 MCG/2 ML VIAL IV PRN (22:53)
[2023-05-03] MEDS: ONDANSETRON INJECTION 4 MG/2 ML (SDV) IV PRN (22:53)
[2023-05-03 23:51] VITALS: BP 111/70
[2023-05-04] VITALS (13 sets, daily range): BP systolic 96–140; BP diastolic 55–83
[2023-05-04] MEDS: fentaNYL INJECTION 100 MCG/2 ML VIAL IV PRN ×5 (00:09→22:57)
[2023-05-04] MEDS ORDERED: PROMETHAZINE INJ 25 MG/ML VIAL ONE (01:18)
[2023-05-04] MEDS: PROMETHAZINE INJ 25 MG/ML VIAL IVP PRN ×2 (01:20→06:17)
[2023-05-04] MEDS: HYDROmorphone INJECTION 2 MG/ML VIAL IVP PRN ×2 (01:27→08:59)
[2023-05-04 06:04] LABS: BASOPHILS % (AUTO) 0 % (0-10); EOSINOPHILS % (AUTO) 0 % (0-10); HEMATOCRIT 38 % (35-52); HEMOGLOBIN 12.4 g/dL (11.5-16.0); LYMPHOCYTES # (AUTO) 1.4 10^3/uL (1.0-4.0); LYMPHOCYTES % (AUTO) 11 % (12-44); MEAN CORPUSCULAR HEMOGLOBIN 32 pg (25-34); MEAN CORPUSCULAR HGB CONC 33 g/dL (32-36); MEAN CORPUSCULAR VOLUME 97 fL (80-99); MEAN PLATELET VOLUME 10.2 fL (9.0-12.2); MONOCYTES # (AUTO) 0.9 10^3/uL (0.0-1.0); MONOCYTES % (AUTO) 7 % (0-12); NEUTROPHILS # (AUTO) 10.5 10^3/uL (1.8-7.8); NEUTROPHILS % (AUTO) 82 % (42-75); PLATELET COUNT 371 10^3/uL (130-400); WHITE BLOOD COUNT 12.8 10^3/uL (4.3-11.0)
[2023-05-04 06:10] LABS: ALBUMIN 3.8 GM/DL (3.2-4.5)
[2023-05-04 06:11] LABS: POTASSIUM 3.9 MMOL/L (3.6-5.0)
[2023-05-04 06:12] LABS: CALCIUM 9.3 MG/DL (8.5-10.1)
[2023-05-04 06:13] LABS: TOTAL PROTEIN 6.9 GM/DL (6.4-8.2)
[2023-05-04 06:15] LABS: BILIRUBIN,TOTAL 0.3 MG/DL (0.1-1.0)
[2023-05-04 06:17] LABS: CREATININE SERUM 1.11 MG/DL (0.60-1.30)
[2023-05-04] MEDS ORDERED: FLU HIGH DOSE (65+ YOA) 240 MCG/0.7 ML 2023-24 (FLUZONE) IM ONE (06:45)
[2023-05-04] MEDS: NS IV 1000 ML 1,000 ML IV SCH ×2 (06:50→14:33)
[2023-05-04] MEDS: ONDANSETRON INJECTION 4 MG/2 ML (SDV) IV PRN ×3 (09:00→19:49)
--- NOTE | 2023-05-04 10:13 | Progress Note-Pre Operative ---
Pre-Operative Progress Note Date of Available H&P: May 04, 2023 Date H&P Reviewed: May 04, 2023 Time H&P Reviewed: 10:00 History & Physical: No changes noted Pre-Operative Diagnosis: incarcerated ventral abdominal incisional hernia LES JUÁREZ MD May 04, 2023 10:13
[2023-05-04] MEDS ORDERED: ATOR10TA66 PO (11:28)
[2023-05-04] MEDS ORDERED: ZINC220T3 PO (11:28)
[2023-05-04] MEDS ORDERED: ACET-2267 PO (11:28)
[2023-05-04] MEDS ORDERED: POTA-179 PO (11:28)
[2023-05-04] MEDS ORDERED: METO50TA7 PO (11:28)
[2023-05-04] MEDS ORDERED: DULO60CA59 PO (11:28)
[2023-05-04] MEDS ORDERED: ASCO-262 PO (11:28)
[2023-05-04] MEDS ORDERED: DIPH25TA65 PO (11:28)
[2023-05-04] MEDS ORDERED: HYDR25TA4 PO (11:28)
[2023-05-04] MEDS ORDERED: CALC600T91 PO (11:28)
[2023-05-04] MEDS ORDERED: TURM500C4 PO (11:28)
[2023-05-04] MEDS ORDERED: CHOL200025 PO (11:28)
[2023-05-04] MEDS ORDERED: FISH1CAP15 PO (11:28)
[2023-05-04] MEDS ORDERED: CYAN-23 PO (11:28)
[2023-05-04] MEDS ORDERED: ACET-3075 PO (11:28)
[2023-05-04] MEDS ORDERED: LIDOCAINE 2% w/EPI 1:100,000 20 ML VIAL ONE (15:39)
[2023-05-04] MEDS: LACTATED RINGERS 1,000 ML 1,000 ML IV PRN ×2 (16:42→17:55)
[2023-05-04] MEDS ORDERED: fentaNYL INJECTION 100 MCG/2 ML VIAL IVP ONE (17:00)
[2023-05-04] MEDS ORDERED: MEPERIDINE INJ 50 MG/ML VIAL IVP ONE (17:00)
[2023-05-04] MEDS ORDERED: ONDANSETRON INJECTION 4 MG/2 ML (SDV) IVP PRN (17:00)
[2023-05-04] MEDS ORDERED: morphine INJ 10 MG/ML 1ML (SYR OR VIAL) IVP ONE (17:00)
[2023-05-04] MEDS ORDERED: proPOfol INJECTION 200 MG/20 ML VIAL IV ONE (17:10)
[2023-05-04] MEDS ORDERED: ONDANSETRON INJECTION 4 MG/2 ML (SDV) ONE (17:10)
[2023-05-04] MEDS ORDERED: LIDOCAINE PF 2% 5 ML VIAL ONE (17:10)
[2023-05-04] MEDS ORDERED: fentaNYL INJECTION 100 MCG/2 ML VIAL ONE (17:10)
[2023-05-04] MEDS ORDERED: MIDAZOLAM INJ 2 MG/2 ML VIAL ONE (17:10)
[2023-05-04] MEDS ORDERED: SEVOFLURANE (ULTANE) 15 ML INHAL SOLN ONE ×2 (17:10→18:32)
--- NOTE | 2023-05-04 17:24 | Progress Note-Post Operative ---
Post-Operative Progess Note Surgeon (s)/Paraprofessional Education Assistant (s) Surgeon LSE JUÁREZ MD Paraprofessional Education Assistant: francesca de la cruz INDUSTRIAL ORGANIZATION MANAGER Pre-Operative Diagnosis incarcerated ventral abdominal incisional hernia Post-Operative Diagnosis same( Procedure & Operative Findings Date of Procedure 05/04/23 Procedure Performed/Findings ventral abdominal incisional hernia repair with mesh Anesthesia Type get Estimated Blood Loss Estimated blood loss (mL): minimal Specimens/Packing Specimens Removed hernia sac LES JUÁREZ MD May 04, 2023 17:24
[2023-05-04] MEDS ORDERED: HYDR-3817 PO (17:26)
--- NOTE | 2023-05-04 17:27 | Discharge Inst-Surgical ---
D/C Lap Instructions-FRANCK New, Converted, or Re-Newed RX: RX on Chart Follow Up Appt in 2 weeks Activity as tolerated No driving for 24 hours No driving while on pain medications Incentive Spirometry use every 2 hours while awake Abdominal binder on day and night for next 2 weeks. take off to shower. Regular Diet Symptoms to Report: Fever over 101 degree F, Nausea/Vomiting Infection Signs and Symptoms to report: Increased redness, Foul odor of wound, Increased drainage Bathing instructions: May shower Operative Area Clean/Dry; Keep incision clean/dry If any problems/questions: Contact your physician or go to Emergency Room LES UJÁREZ MD May 04, 2023 17:27
--- NOTE | 2023-05-04 17:32 | HISTORY AND PHYSICAL ---
ATTENDING PRIMARY CARE PHYSICIAN: Mica Portillo APRN INDICATIONS: The patient is a 73-year-old female who presented to the Emergency Department with a 1 day history of abdominal distention and crampy pain as well as associated nausea and vomiting. The patient states that she also has not had a bowel movement since the onset of the pain. She reports that she also did develop diarrhea several days ago, which were dark however, she states that her stools are always dark due to her iron supplementation. A CT scan was performed, which did show a significant size incarcerated ventral abdominal incisional hernia with small bowel within the hernia sac, likely causing transient obstruction. There are no signs of any strangulation. She has had previous surgeries encompassing section, open appendectomy, cholecystectomy as well as an open midline laparotomy for weight loss surgery in the . PAST MEDICAL HISTORY: Hypertension, hypercholesterolemia, morbid obesity, degenerative joint disease. PAST SURGERIES: section x3, total hysterectomy, open gastric stapling, open cholecystectomy. ALLERGIES: NO KNOWN DRUG ALLERGIES. MEDICATIONS: Atorvastatin 10 mg daily, duloxetine 60 mg daily, fish oil 1200 mg daily, hydrochlorothiazide 25 mg daily, lisinopril 20 mg daily, metoprolol 50 mg daily, potassium 20 mEq daily, zinc 50 mg daily. SOCIAL HISTORY: Negative smoke, negative alcohol. FAMILY HISTORY: Noncontributory. VITAL SIGNS: Temperature 36.8, blood pressure 115/57, pulse 103, respirations 18, pulse ox 95% on room air. REVIEW OF SYSTEMS: Well-nourished female in no acute distress. She is not experiencing any shortness of breath and difficulty breathing. No chest pain, palpitations, diaphoresis. Intermittent episodes of crampy abdominal pain, which was diffuse in nature with associated nausea and vomiting. No hematemesis, no coffee-ground emesis, no red blood per rectum, no dark tarry stools. No fever or chills. No recent inadvertent weight loss. All other review of systems negative. PHYSICAL EXAMINATION: CHEST: Few scattered rales and rhonchi bilaterally. HEART: Regular, no murmurs. EXTREMITIES: 1/3 bilateral lower extremity edema. Negative Homans sign. HEENT: No scleral icterus. No cervical lymphadenopathy. ABDOMEN: Soft with moderate distention with a palpable hernia along the midline incision in the infraumbilical region. This is nonreducible. SKIN: Warm, dry. LABORATORY DATA: WBC 12.8, hemoglobin 12.4, hematocrit 38, platelets 371, BUN 19, creatinine 1.11. ASSESSMENT AND PLAN: A 73-year-old female with incarcerated ventral abdominal incisional hernia, likely causing transient obstruction. The natural history of hernias were explained to the patient and that due to her symptoms, this does need to be repaired however, due to her body habitus, there is a higher incidence of recurrence. She is in full understanding of this and would like to proceed with the hernia repair with mesh. Job ID: [id number] DocumentID: [id number] Dictated Date: 05/04/2023 17:07:13 Lens Mounter Date: 05/04/2023 17:29:00 Dictated By: LES JUÁREZ MD MTDD
[2023-05-04] MEDS ORDERED: ceFAZolin INJECTION 2,000 MG ONE (17:43)
[2023-05-04] MEDS ORDERED: PHENYLEPHRINE 100 MCG/ML 10 ML (ANESTHESIA) SYR ONE (17:57)
[2023-05-04] MEDS ORDERED: ROCURONIUM 50 MG/5 ML VIAL IV ONE (17:57)
[2023-05-04] MEDS ORDERED: SUCCINYLCHOLINE INJ 20 MG/1 ML 10 ML VIAL ONE (17:57)
[2023-05-04] MEDS ORDERED: GLYCOPYRROLATE INJ 0.2 MG/ML 2 ML VIAL ONE (18:49)
[2023-05-04] MEDS ORDERED: NEOSTIGMINE 1 MG/1ML 10 ML VIAL ONE (18:49)
--- NOTE | 2023-05-04 19:03 | Progress Note-Post Operative ---
Post-Operative Progess Note Surgeon (s)/Backbreaker (s) Surgeon LES JUÁREZ MD Backbreaker: francesca de la cruz BAND RIPSAW OPERATOR Pre-Operative Diagnosis incarcerated ventral abdominal incisional hernia Post-Operative Diagnosis large incarcerated ventral abd incisional hernia with small bowel, no strangulation. Procedure & Operative Findings Date of Procedure 05/04/23 Procedure Performed/Findings open ventral abdominal incisional hernia repair with mesh, complex layered closure(20cm). Anesthesia Type get Estimated Blood Loss Estimated blood loss (mL): minimal Specimens/Packing Specimens Removed hernia sac. LES JUÁREZ MD May 04, 2023 19:03
[2023-05-04] MEDS ORDERED: morphine INJ 10 MG/ML 1ML (SYR OR VIAL) ONE (19:42)
[2023-05-05] VITALS (9 sets, daily range): BP systolic 103–139; BP diastolic 58–86
--- NOTE | 2023-05-05 01:13 | OPERATIVE REPORT ---
DATE OF SERVICE: 05/04/2023 ATTENDING PRIMARY DIRECTOR OF CLINICAL APPLICATIONS: Mica Portillo APRN PREOPERATIVE DIAGNOSIS: Incarcerated ventral abdominal incisional hernia. POSTOPERATIVE DIAGNOSES: Incarcerated ventral abdominal incisional hernia with no strangulation of the bowel or mesentery. PROCEDURE: Open incarcerated ventral abdominal incisional hernia repair with mesh and complex layered closure of the subcutaneous tissue and skin 15 cm in length. SURGEON: Les Juárez MD LINE RUNNER: Vievk Dietrich APRN ANESTHESIA: General endotracheal. ESTIMATED BLOOD LOSS: Minimal. FINDINGS: Incarcerated ventral abdominal incisional hernia with no strangulation of the bowel or mesentery. DISPOSITION: The patient tolerated the procedure well. INDICATIONS: The patient is a 73-year-old female who presented to the emergency department with 1 day history of abdominal distention, crampy abdominal pain with associated nausea and vomiting. She states that she has not had a bowel movement since the onset of pain as well. She reports that before this, she did develop diarrhea, which were dark in color, however, states that her stools are normally dark due to her iron supplementation. CT scan was performed, which did show a significant sized incarcerated ventral abdominal incisional hernia with small bowel within the hernia sac, likely causing a transient obstruction; however, no signs of strangulation. The patient has had previous surgeries encompassing open section, open appendectomy, open cholecystectomy as well as a midline laparotomy for a bariatric surgical procedure in the . Risks and benefits of the procedure were explained to the patient and family and due to her obstructive symptoms and discomfort, she wanted to proceed with the incisional hernia repair with mesh. However, due to her morbid obesity and other risk factors, there is a high risk of reoccurrence. DESCRIPTION OF PROCEDURE: The patient was brought to the operating room, laid supine on the table. After adequate IV pain and sedative medications and general endotracheal intubation, the abdomen was prepped and draped in standard surgical fashion. A 2% lidocaine with epinephrine was used to anesthetize the overlying skin to the overlying the infraumbilical midline region and a skin incision was made using a #15 blade. Subcutaneous tissue was then dissected using electrocautery and blunt dissection. The hernia sac was identified and completely dissected out with blunt dissection as well as electrocautery. This was a large hernia sac. We followed this down to the fascia and dissected hernia sac until viable, strong fascia was identified. The hernia sac was then opened using Metzenbaum scissors and completely dissected out using electrocautery under direct visualization. The small bowel mesentery as well as omentum that was in the hernia sac was visualized and well vascularized with no signs of any strangulation. This was reduced back into the peritoneal cavity. Adhesions towards the abdominal wall were then taken down using electrocautery as well as blunt dissection. Good hemostasis was observed. The defect was measured approximately 5 x 5 cm in size. It was decided to use a 15 cm round coated polypropylene mesh and the mesh was placed into the defect as an underlay technique. We then proceeded with transfascial horizontal mattress sutures circumferentially attaching the mesh to the fascia with 0 Prolene sutures. This was done avoiding any tension on the fascia. Once this was accomplished, we then proceeded with a row of concentric transfascial sutures around the edge of the fascia to the mesh using 0 Prolene interrupted sutures. Good hemostasis was observed. We then proceeded with layered closure of larger opening. Lateral subcutaneous flaps were created using an electrocautery. Once this was done, we were able to approximate the subcutaneous tissue without any tension with interrupted 0 Vicryl sutures. The skin was then closed using skin emir. Wound was then cleaned and covered with tonsil sponges followed by 4 x 4 gauze followed by large Op-Site followed by large abdominal binder. The patient tolerated the procedure well. We will admit her back to the floor and start a clear liquid diet and advance as tolerated. We will also consult the physical therapy. We will also start IV normal pain medication. When she is able to tolerate a diet and has adequate pain control with oral pain medications, ambulating well, we will discharge her home where she will be instructed to do no heavy lifting or exertion for the next 6 weeks and to wear the abdominal binder for both day and night for the next 2 weeks. Job ID: [id number] DocumentID: [id number] Dictated Date: 05/04/2023 19:15:53 Estimator Printing Date: 05/05/2023 01:11:00 Dictated By: LES JUÁREZ MD [facility]
[2023-05-05] MEDS: HYDROmorphone INJECTION 2 MG/ML VIAL IVP PRN ×4 (02:01→16:45)
[2023-05-05] MEDS: ONDANSETRON INJECTION 4 MG/2 ML (SDV) IV PRN ×2 (02:01→19:47)
[2023-05-05] MEDS: NS IV 1000 ML 1,000 ML IV SCH ×4 (02:10→20:54)
[2023-05-05] MEDS: fentaNYL INJECTION 100 MCG/2 ML VIAL IV PRN ×3 (04:33→19:47)
[2023-05-05] MEDS: POTASSIUM CHLORIDE 20 MEQ TABLET PO SCH (08:25)
[2023-05-05] MEDS: HYDROcodone/ACETAMINOPHEN 7.5 MG/325 MG TABLET PO PRN (08:25)
--- NOTE | 2023-05-05 10:12 | Anesthesia-General Post-Op ---
General Patient Condition Mental Status/LOC: Same as Preop Cardiovascular: Satisfactory Nausea/Vomiting: Absent Respiratory: Satisfactory Pain: Controlled Complications: Absent Post Op Complications Complications None Follow Up Care/Instructions Patient Instructions None needed. Anesthesia/Patient Condition Patient Condition Patient is doing well, no complaints, stable vital signs, no apparent adverse anesthesia problems. No complications reported per nursing. CHAPIS GUZMÁN CRNA May 05, 2023 10:12
--- NOTE | 2023-05-05 10:32 | Physical Therapy Progress Note ---
Therapy Progress Note Patient on Hold per RN due to current medical status and uncontrolled pain. PT will monitor patient status and initiate skilled PT when deemed medically stable. BAKARI KLEIN PT May 05, 2023 10:32
--- NOTE | 2023-05-05 10:35 | Consultation - Hospitalist ---
HPI History of Present Illness: HPI/Chief Complaint Chief complaint: Debility with UTI HPI: This is a 73-year-old female who presented with abdominal pain found to have incarcerated hernia management Dr. Monroy. Currently she is doing a lot better but very weak so will initiate PT and OT and placed on empiric antibiotics for UTI. Surgery was large incarcerated ventral abd incisional hernia with small bowel, no strangulation. Source: patient Exam Limitations: no limitations Date Seen 05/05/23 Attending Physician Mica Portillo Aprn PCP Admitting Physician: Lynsey Monroy MD Attending Physician: Lynsey Monroy MD Referring Physician Date of Admission May 03, 2023 at 21:57 Home Medications & Allergies Home Medications Reviewed patient Home Medication Reconciliation performed by pharmacy medication reconciliations solar field service technician and/or nursing. Patients Allergies have been reviewed. Allergies Allergies Coded Allergies No Known Drug Allergies (Unverified01/09/15) Past Vjjezhv-Apkjby-Vcbtog Hx Patient Social History Marrital Status: single Employed/Student: retired Tobacco Use?: Yes Smoking Status: Never a Smoker Smokeless Tobacco Frequency: Never a User Use of E-Cig and/or Vaping dev: No Substance use?: No Alcohol Use?: No Pt feels they are or have been: No Immunizations Up To Date Tetanus Booster (TDap): Less Than 5 Years Date of Pneumonia Vaccine: Mar 11, 2016 Seasonal Allergies Seasonal Allergies: No Current Status status: No Advance Directives: No Communicates: Verbally Primary Language: Guamanian Preferred Spoken Language: Guamanian Sensory deficits: Vision impairment Implanted or Applied Medical D: Orthopedic hardware Past Medical History Surgeries: Abdominal, Appendectomy, Cardiac, Section, Gallbladder, Hysterectomy, Oophorectomy Currently Using CPAP: No Heart Murmur, High Cholesterol, Hypertension Concussion, Headaches /Migraines 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 5.0oz. [id number]; 45.39 BMI Method:Stated General Appearance: No Apparent Distress, WD/WN, Chronically ill, Obese Eyes: Bilateral Eye Normal Inspection, Bilateral Eye PERRL HEENT: PERRL/EOMI, Normal ENT Inspection, Pharynx Normal Neck: Full Range of Motion, Normal Inspection, Non Tender, Supple, Carotid Bruit Respiratory: Chest Non Tender, Lungs Clear, Normal Breath Sounds, No Accessory Muscle Use, No Respiratory Distress Cardiovascular: Regular Rate, Rhythm, No Edema, No Gallop, No JVD, No Murmur, Normal Peripheral Pulses Gastrointestinal: Normal Bowel Sounds, No Organomegaly, No Pulsatile Mass, Soft, Abnormal Bowel Sounds, Tenderness Back: Normal Inspection, No CVA Tenderness, No Vertebral Tenderness Extremity: Normal Capillary Refill, Normal Inspection, Normal Range of Motion, Non Tender, No Calf Tenderness, No Pedal Edema Neurologic/Psychiatric: Alert, Oriented x3, No Motor/Sensory Deficits, Normal Mood/Affect Skin: Normal Color, Warm/Dry Lymphatic: No Adenopathy Results Results/Procedures Labs Laboratory Tests 05/05/23 10:51 Patient resulted labs reviewed. Assessment/Plan Assessment and Plan Assess & Plan/Chief Complaint Assessment: Status pos repair of large incarcerated ventral abd incisional hernia with small bowel, no strangulation UTI Severe debility Obesity Plan: PT and OT Empiric antibiotics Follow-up on urine culture Home meds LUCIO CHAMBERS DO May 05, 2023 10:35
[2023-05-05 10:59] LABS: BASOPHILS # (AUTO) 0.1 10^3/uL (0.0-0.1); BASOPHILS % (AUTO) 0 % (0-10); EOSINOPHILS % (AUTO) 0 % (0-10); HEMATOCRIT 35 % (35-52); HEMOGLOBIN 11.1 g/dL (11.5-16.0); LYMPHOCYTES # (AUTO) 1.9 10^3/uL (1.0-4.0); LYMPHOCYTES % (AUTO) 17 % (12-44); MEAN CORPUSCULAR HEMOGLOBIN 32 pg (25-34); MEAN CORPUSCULAR HGB CONC 32 g/dL (32-36); MEAN CORPUSCULAR VOLUME 102 fL (80-99); MEAN PLATELET VOLUME 9.9 fL (9.0-12.2); MONOCYTES % (AUTO) 9 % (0-12); NEUTROPHILS # (AUTO) 8.2 10^3/uL (1.8-7.8); NEUTROPHILS % (AUTO) 73 % (42-75); PLATELET COUNT 262 10^3/uL (130-400); WHITE BLOOD COUNT 11.2 10^3/uL (4.3-11.0)
[2023-05-05 11:09] LABS: ALBUMIN 3.6 GM/DL (3.2-4.5)
[2023-05-05 11:10] LABS: POTASSIUM 3.8 MMOL/L (3.6-5.0)
[2023-05-05 11:11] LABS: CALCIUM 8.7 MG/DL (8.5-10.1)
[2023-05-05 11:12] LABS: TOTAL PROTEIN 6.5 GM/DL (6.4-8.2)
[2023-05-05 11:14] LABS: BILIRUBIN,TOTAL 0.5 MG/DL (0.1-1.0)
[2023-05-05 11:16] LABS: CREATININE SERUM 1.46 MG/DL (0.60-1.30)
--- NOTE | 2023-05-05 11:38 | Progress Note ---
Subjective Date Seen by a Provider: May 05, 2023 Time Seen by a Provider: 11:00 Subjective/Events-last exam doing ok. has abdominal pain especially upon inspiration. has multiple c omorbities including morbid obesity and high risk atelectasis/pneumonia. Focused Exam Lactate Level 05/03/23 21:16: Lactic Acid Level 2.54*H 05/03/23 23:11: Lactic Acid Level 1.49 Objective Exam Vital Signs Date Time Temp Pulse Resp B/P (MAP) Pulse Ox O2 Delivery O2 Flow Rate FiO2 05/05/23 10:05 36.9 98 16 107/64 (78) 93 Nasal Cannula 2.00 05/05/23 09:14 37.3 112 17 103/58 (73) 95 Nasal Cannula 2.00 05/05/23 07:26 38.4 124 17 112/71 (85) 92 Nasal Cannula 3.00 05/05/23 06:30 Nasal Cannula 2.00 05/05/23 03:19 37.4 109 20 112/67 (82) 93 Nasal Cannula 2.00 2.00 05/04/23 23:05 37.7 107 20 108/67 (81) 100 Nasal Cannula 2.00 05/04/23 20:20 36.6 106 20 111/55 (73) 95 Nasal Cannula 4.00 05/04/23 20:10 OxyMask 4.00 05/04/23 20:00 95 Nasal Cannula 4.00 05/04/23 20:00 16 124/71 (88) 93 OxyMask 4.00 05/04/23 19:55 OxyMask 6.00 05/04/23 19:50 22 140/77 (98) 93 OxyMask 6.00 05/04/23 19:40 18 121/80 (94) 95 OxyMask 6.00 05/04/23 19:40 OxyMask 6.00 05/04/23 19:30 24 121/80 (94) 94 OxyMask 12 05/04/23 19:25 OxyMask 12 05/04/23 19:20 24 121/69 (86) 91 OxyMask 12 05/04/23 19:14 36.6 16 138/83 (101) 92 OxyMask 12 05/04/23 19:14 OxyMask 12 05/04/23 16:22 36.8 103 18 114/57 (76) 95 Room Air 05/04/23 11:57 36.6 96 17 115/55 (75) 95 Room Air I & O 05/05/23 06:59 Intake Total 4175 ml Output Total 1080 ml Balance 3095 ml Capillary Refill : Less Than 3 Seconds General Appearance: No Apparent Distress HEENT: PERRL/EOMI Neck: Full Range of Motion Respiratory: Chest Non Tender Cardiovascular: Regular Rate, Rhythm Gastrointestinal: soft, tenderness, other (wound clean/dry) Extremity: Normal Capillary Refill Neurologic/Psychiatric: Alert, Oriented x3 Skin: Normal Color Lymphatic: No Adenopathy Results Lab Laboratory Tests 05/05/23 10:51: White Blood Count 11.2H, Red Blood Count 3.43L, Hemoglobin 11.1L, Hematocrit 35, Mean Corpuscular Volume 102H, Mean Corpuscular Hemoglobin 32, Mean Corpuscular Hemoglobin Concent 32, Red Cell Distribution Width 13.7, Platelet Count 262, Mean Platelet Volume 9.9, Immature Granulocyte % (Auto) 0, Neutrophils (%) (Auto) 73, Lymphocytes (%) (Auto) 17, Monocytes (%) (Auto) 9, Eosinophils (%) (Auto) 0, Basophils (%) (Auto) 0, Neutrophils # (Auto) 8.2H, Lymphocytes # (Auto) 1.9, Monocytes # (Auto) 1.0, Eosinophils # (Auto) 0.0, Basophils # (Auto) 0.1, Immature Granulocyte # (Auto) 0.0, Sodium Level 138, Potassium Level 3.8, Chloride Level 109H, Carbon Dioxide Level 19L, Anion Gap 10, Blood Urea Nitrogen 18, Creatinine 1.46H, Estimat Glomerular Filtration Rate 38, BUN/Creatinine Ratio 12, Glucose Level 115H, Calcium Level 8.7, Corrected Calcium 9.0, Total Bilirubin 0.5, Aspartate Amino Transf (AST/SGOT) 32, Alanine Aminotransferase (ALT/SGPT) 27, Alkaline Phosphatase 69, Total Protein 6.5, Albumin 3.6 Microbiology 05/03/23 MRSA Screen - Final, Complete MRSA not isolated 05/03/23 Urine Culture - Preliminary, Resulted Gram Negative Bacillus 1 Culture In Progress Assessment/Plan Assessment/Plan Assess & Plan/Chief Complaint s/p open repair incarcerated ventral abdominal incisional hernia repair with mesh. consult hospitalist. consult PT. increase ambulation and IS. diet as tolerated. LES JUÁREZ MD May 05, 2023 11:38
[2023-05-05] MEDS: cefTRIAXone IV/IM 1,000 MG in NS (IVPB) 50 ML 50 ML IV SCH (11:59)
[2023-05-05] MEDS: metroNIDAZOLE 500MG/100ML IVPB 100 ML IV SCH ×2 (11:59→20:54)
--- NOTE | 2023-05-05 14:57 | Occ Therapy Progress Note ---
Therapy Progress Note patient on Hold per RN due to current medical status and uncontrolled pain. OT will monitor patient status and initiate skilled OT when deemed medically stable. INOCENTE SOUZA OT May 05, 2023 14:57
[2023-05-05] MEDS ORDERED: ACETAMINOPHEN 325 MG TABLET ONE (19:43)
[2023-05-05] MEDS: ACETAMINOPHEN 325 MG TABLET PO PRN (19:45)
[2023-05-05] MEDS ORDERED: CIPROFLOXACIN IV 400MG/200ML 200 ML IV SCH (21:00)
[2023-05-06] MEDS: fentaNYL INJECTION 100 MCG/2 ML VIAL IV PRN ×2 (00:05→18:30)
[2023-05-06] MEDS: ONDANSETRON INJECTION 4 MG/2 ML (SDV) IV PRN ×3 (00:09→18:30)
[2023-05-06] MEDS: PROMETHAZINE INJ 25 MG/ML VIAL IVP PRN (01:18)
[2023-05-06] MEDS: HYDROmorphone INJECTION 2 MG/ML VIAL IVP PRN ×5 (01:19→19:56)
[2023-05-06 03:12] VITALS: BP 119/85
[2023-05-06] MEDS: NS IV 1000 ML 1,000 ML IV SCH ×2 (05:23→16:03)
[2023-05-06 06:07] LABS: BASOPHILS % (AUTO) 0 % (0-10); EOSINOPHILS # (AUTO) 0.1 10^3/uL (0.0-0.3); EOSINOPHILS % (AUTO) 1 % (0-10); HEMATOCRIT 33 % (35-52); HEMOGLOBIN 10.6 g/dL (11.5-16.0); LYMPHOCYTES # (AUTO) 1.7 10^3/uL (1.0-4.0); LYMPHOCYTES % (AUTO) 13 % (12-44); MEAN CORPUSCULAR HEMOGLOBIN 32 pg (25-34); MEAN CORPUSCULAR HGB CONC 33 g/dL (32-36); MEAN CORPUSCULAR VOLUME 99 fL (80-99); MEAN PLATELET VOLUME 10.1 fL (9.0-12.2); MONOCYTES # (AUTO) 1.3 10^3/uL (0.0-1.0); MONOCYTES % (AUTO) 10 % (0-12); NEUTROPHILS # (AUTO) 10.1 10^3/uL (1.8-7.8); NEUTROPHILS % (AUTO) 76 % (42-75); PLATELET COUNT 220 10^3/uL (130-400); WHITE BLOOD COUNT 13.3 10^3/uL (4.3-11.0)
[2023-05-06 06:26] LABS: POTASSIUM 3.9 MMOL/L (3.6-5.0)
[2023-05-06 06:28] LABS: CALCIUM 9.1 MG/DL (8.5-10.1)
[2023-05-06 06:32] LABS: CREATININE SERUM 0.91 MG/DL (0.60-1.30)
--- NOTE | 2023-05-06 06:49 | Progress Note - Hospitalist ---
Subjective HPI/CC On Admission Date Seen by Provider: May 06, 2023 Time Seen by Provider: 11:00 Chief complaint: Debility with UTI HPI: This is a 73-year-old female who presented with abdominal pain found to have incarcerated hernia management Dr. Monroy. Currently she is doing a lot better but very weak so will initiate PT and OT and placed on empiric antibiotics for UTI. Surgery was large incarcerated ventral abd incisional hernia with small bowel, no strangulation. Focused Exam Lactate Level 05/03/23 21:16: Lactic Acid Level 2.54*H 05/03/23 23:11: Lactic Acid Level 1.49 Objective Exam Vital Signs Vital Signs Date Time Temp Pulse Resp B/P (MAP) Pulse Ox O2 Delivery O2 Flow Rate FiO2 05/06/23 12:21 36.3 92 20 122/60 (80) 99 Nasal Cannula 2.00 Capillary Refill : Less Than 3 Seconds Results/Procedures Lab Laboratory Tests 05/06/23 06:01 Patient resulted labs reviewed. Assessment/Plan Assessment and Plan Assess & Plan/Chief Complaint Assessment: Status pos repair of large incarcerated ventral abd incisional hernia with small bowel, no strangulation UTI Severe debility Obesity Plan: PT and OT Empiric antibiotics Follow-up on urine culture Home meds LUCIO CHAMBERS DO May 06, 2023 06:49
[2023-05-06] MEDS ORDERED: ENOXAPARIN 40 MG/0.4 ML SYRINGE SC SCH (07:00)
[2023-05-06 08:15] LABS: BAND NEUTROPHILS 2 %; BASOPHILS % (MANUAL) 0 %; EOSINOPHILS % (MANUAL) 2 %; LYMPHOCYTES % (MANUAL) 14 %; MONOCYTES % (MANUAL) 3 %; NEUTROPHILS % (MANUAL) 79 %; RBC MORPH NORMAL
[2023-05-06 08:28] VITALS: BP 122/79
[2023-05-06] MEDS: HYDROcodone/ACETAMINOPHEN 7.5 MG/325 MG TABLET PO PRN ×2 (08:48→15:20)
[2023-05-06] MEDS: POTASSIUM CHLORIDE 20 MEQ TABLET PO SCH (08:56)
[2023-05-06] MEDS: ENOXAPARIN 40 MG/0.4 ML SYRINGE SC SCH ×2 (08:57→19:52)
[2023-05-06] MEDS: PANTOPRAZOLE INJECTION 40 MG VIAL IV SCH (08:57)
[2023-05-06] MEDS: metroNIDAZOLE 500MG/100ML IVPB 100 ML IV SCH ×2 (08:57→19:53)
--- NOTE | 2023-05-06 09:33 | Physical Therapy Evaluation ---
PT Evaluation-General Medical Diagnosis Admission Date May 03, 2023 at 21:57 Medical Diagnosis: Hernia repair small bowel obstruction repair Onset Date: May 05, 2023 Therapy Diagnosis Therapy Diagnosis: weakness Height/Weight Height (Feet): 5 Height (Inches): 5.00 Weight (Pounds): 211 Weight (Ounces): 5.0 Precautions Precautions/Isolations: Fall Prevention, Standard Precautions Referral Physician: Lynsey Monroy Reason for Referral: Evaluation/Treatment Medical History Pertinent Medical History: HTN Additional Medical History Lumbar surgery, knee OA Current History Admit for elective hernia and small bowel obstruction repair Reviewed History: Yes Social History Home: Apartment Current Living Status: Alone Entry Into Home: Level Entry Prior Prior Level of Function SCALE: Activities may be completed with or without assistive devices. 0-Dnpunmddim-jooajed completes the activity by him/herself with no assistance from a helper. 5-Set-up or Clean-up Assistance-helper sets up or cleans up; patient completes activity. [place] assists only prior to or following the activity. 4-Supervision or Touching Assistance-helper provides verbal cues and/or touching/steadying and/or contact guard assistance as patient completes activity. Assistance may be provided throughout the activity or intermittently. 3-Partial/Moderate Assistance-helper does LESS THAN HALF the effort. [place] lifts, holds or supports trunk or limbs, but provides less than half the effort. 2-Substantial/Maximal Assistance-helper does MORE THAN HALF the effort. [place] lifts or holds trunk or limbs and provides more than half the effort. 3-Zupogrqbs-egtqjc does ALL the effort. Patient does none of the effort to complete the activity. Or, the assistance of 2 or more helpers is required for the patient to complete the activity. If activity was not attempted, code reason: 7-Patient Refused. 9-Not Applicable-not attempted and the patient did not perform the activity before the current illness, exacerbation or injury. 10-Not Attempted due to Environmental Limitations-(lack of equipment, weather restraints, etc.). 88-Not Attempted due to Medical Conditions or Safety Concerns. Bed Mobility: 6 Transfers (B,C,W/C): 6 Gait: 6 Stairs: 6 Prior Device Use: single point cane PT Evaluation-Current Subjective Pt alert and oriented toward person, place, time, and situation. She recognizes the need to prove mobility in order to go home. ROM/Strength ROM Lower Extremities WFL; (B) knee pain from OA Strength Lower Extremities gross 4/5 Transfers Roll Left to Right (QC): 4 Sit to Lying (QC): 4 Lying to Sitting/Side of Bed(Q: 4 Sit to Stand (QC): 4 Chair/Lbk-bd-Svnhp Xfer(QC): 4 Gait Does the Patient Walk?: Yes Mode of Locomotion: Walk Anticipated Mode of Locomotion: Walk Walk 10 feet (QC): 4 Walk 50 ft with 2 Turns(QC): 4 Distance: 110 Gait Assistive Device: FWW Comments/Gait Description Ambulate 110ft with FWW and SBA on room air. Pt slow and fatigued the last 50ft of ambulation. SOB was the primary limitation. Balance Sitting Static: Fair Sitting Dynamic: Fair Standing Static: Fair Standing Dynamic: Fair Assessment/Needs Rehab Potential: Good PT Detention Goals Uniform Maker Goals PT Detention Goals Time Frame: May 10, 2023 Roll Left & Right (QC): 6 Sit to Lying (QC): 6 Lying-Sitting on Side/Bed(QC): 6 Sit to Stand (QC): 6 Chair/Qxn-eu-Unvlk Xfer(QC): 6 Toilet Transfer (QC): 6 Walk 150 ft (QC): 6 PT Plan Problem List Problem List: Activity Tolerance, Gait, Bed Mobility Treatment/Plan Treatment Plan: Continue Plan of Care Treatment Duration: May 10, 2023 Frequency: 6 times per week Estimated Hrs Per Day: .25 hour per day Patient and/or Family Agrees t: Yes Time Time In: 914 Time Out: 929 DATE: May 06, 2023 Total Billed Treatment Time: 15 Total Billed Treatment visit, Didialbk complexity 15 min ELMIRA BARROSO PT May 06, 2023 09:33
--- NOTE | 2023-05-06 10:23 | Progress Note ---
ISHMAEL MONTEMAYOR MD, RESIDENT 05/06/23 1023: Subjective HPI/CC On Admission Date Seen by Provider: May 06, 2023 Time Seen by Provider: 08:50 Chief complaint: Debility with UTI HPI: This is a 73-year-old female who presented with abdominal pain found to have incarcerated hernia management Dr. Monroy. Currently she is doing a lot better but very weak so will initiate PT and OT and placed on empiric antibiotics for UTI. Surgery was large incarcerated ventral abd incisional hernia with small bowel, no strangulation. Subjective/Events-last exam Patient doing well this morning. She states she is still having some pain but notes that the pain is overall getting better compared to when she first came in. She has not had a bowel movement yet and has not been passing gas. Does not feel that her abdomen is more distended than usual. Of note, per the nurse, patient did spike a fever to 104 last night which resolved with Tylenol. She denies any new symptoms at this time. Patient does want the catheter to be taken out if possible. Was able to work with PT this morning and did well. Review of Systems General: No Fatigue HEENT: No Head Aches Pulmonary: No Dyspnea Cardiovascular: No: Chest Pain, Palpitations, Edema Gastrointestinal: Nausea, Vomiting, Abdominal Pain, Constipation; No: Diarrhea Genitourinary: No Dysuria Focused Exam Lactate Level 05/03/23 21:16: Lactic Acid Level 2.54*H 05/03/23 23:11: Lactic Acid Level 1.49 Objective Exam Vital Signs Vital Signs Date Time Temp Pulse Resp B/P (MAP) Pulse Ox O2 Delivery O2 Flow Rate FiO2 05/06/23 08:28 36.8 102 22 122/79 (93) 100 Nasal Cannula 1.00 Capillary Refill : Less Than 3 Seconds General Appearance: No Apparent Distress HEENT: PERRL/EOMI Neck: Full Range of Motion, Normal Inspection Respiratory: Chest Non Tender, Lungs Clear, Normal Breath Sounds, No Accessory Muscle Use, No Respiratory Distress Cardiovascular: Regular Rate, Rhythm, No Edema, No Murmur Gastrointestinal: Abnormal Bowel Sounds (Hypoactive bowel sounds), Tenderness (Marked tenderness to palpation in right lower quadrant and left upper quadrant) Extremity: No Pedal Edema Neurologic/Psychiatric: Alert, Oriented x3 Skin: Normal Color, Warm/Dry Results/Procedures Lab Laboratory Tests 05/06/23 06:01 Patient resulted labs reviewed. Assessment/Plan Assessment and Plan Assess & Plan/Chief Complaint Patient is a 73-year-old female with a past medical history of HFpEF, hypertension who presented to the hospital with abdominal pain, status post repair of large incarcerated ventral abdominal incisional hernia with small bowel. Also noted to have a UTI. Status post repair of large incarcerated ventral abdominal incisional hernia -Recommendations per surgical team -Continue laxatives and stool softener to help with moving bowels -Encourage movement -Continue physical therapy -Pain medication per surgical team -Continue metronidazole per surgical team UTI -Continue IV ceftriaxone -Follow-up urine culture, growing gram-negative bacillus Leukocytosis -Patient noted to have a leukocytosis of 13.3 this morning. Was also noted to spike a fever to 104 last night -Obtaining chest x-ray and abdominal x-ray -If any signs of pneumonia or infection, will broaden antibiotics to cefepime Hypertension HFpEF -Continue home medications LUCIO CHAMBERS DO 05/06/23 1634: Subjective Subjective/Events-last exam Patient still uncomfortable She did walk with therapy Abdominal pain continues Objective Exam General Appearance: No Apparent Distress, Chronically ill, Other (ill) Respiratory: Lungs Clear, Normal Breath Sounds Assessment/Plan Assessment and Plan Assess & Plan/Chief Complaint Check chest x-ray and abdominal series I personally performed the loo portions of the visit, discussed case with resident and concur with resident documentation of history, physical exam, assessment and treatment plan unless otherwise noted. ISHMAEL MONTEMAYOR MD, RESIDENT May 06, 2023 10:23 LUCIO CHAMBERS DO May 06, 2023 16:34
--- NOTE | 2023-05-06 10:27 | Progress Note - Surgery ---
MIKA VICK 05/06/23 1027: Subjective Date Seen by a Provider: May 06, 2023 Time Seen by a Provider: 09:52 Subjective/Events-last exam Chikis, 73F, is S/P open repair of incarcerated ventral abdominal hernia. The repair was done on 05/[address] Monroy. Pt notes that there is limited pain. She notes that she has not had a BM or passed gas. She also notes that she had bilious vomitting around 4am. There was associated nausea. She also has a headache. She denies any weakness or numbness. She says that she was able to work with PT. She notes tolerating the liquid diet, but unsure about solid foods at this time. She has no other questions. She denies any symptoms of her UTI due to placed pereira catheter Review of Systems General: Fatigue; No Appetite (decreased, ) HEENT: Head Aches; No Visual Changes Pulmonary: No Dyspnea, No Cough Cardiovascular: No: Chest Pain, Palpitations Gastrointestinal: Nausea, Vomiting (bilious ), Constipation (no bowel movement since prior to surgery ); No: Abdominal Pain Genitourinary: Other (pereira placed ) Musculoskeletal: No: back pain, leg pain Neurological: No: Weakness, Numbness Focused Exam Lactate Level 05/03/23 21:16: Lactic Acid Level 2.54*H 05/03/23 23:11: Lactic Acid Level 1.49 Objective Exam Vital Signs Date Time Temp Pulse Resp B/P (MAP) Pulse Ox O2 Delivery O2 Flow Rate FiO2 05/06/23 08:28 36.8 102 22 122/79 (93) 100 Nasal Cannula 1.00 05/06/23 06:08 Nasal Cannula 2.00 05/06/23 03:12 37.0 90 18 119/85 (96) 97 Nasal Cannula 2.00 2.00 05/05/23 23:09 37.2 86 18 110/70 (83) 95 Nasal Cannula 2.00 2.00 05/05/23 20:42 37.4 106 18 115/74 (88) 95 Nasal Cannula 2.00 05/05/23 20:17 37.2 05/05/23 20:02 Nasal Cannula 2.00 05/05/23 19:45 40.0 05/05/23 19:31 39.9 115 16 139/86 (103) 96 Nasal Cannula 2.00 05/05/23 16:11 36.6 110 18 120/74 (89) 93 Room Air 05/05/23 12:27 38.2 96 18 109/61 (77) 95 Nasal Cannula 3.00 I & O 05/06/23 06:59 Intake Total 1360 ml Output Total 900 ml Balance 460 ml Capillary Refill : Less Than 3 Seconds General Appearance: No Apparent Distress, Chronically ill, Obese HEENT: PERRL/EOMI, Moist Mucous Membranes; No Pharyngeal Erythema Neck: Non Tender; No JVD Respiratory: Chest Non Tender, Lungs Clear, Normal Breath Sounds, No Accessory Muscle Use, No Respiratory Distress Cardiovascular: Regular Rate, Rhythm, No Edema, No Murmur, Normal Peripheral Pulses Gastrointestinal: soft, tenderness, other (wound clean/dry, no erythema noted ) Extremity: No Calf Tenderness, Pedal Edema (1+ on vental aspect ) Neurologic/Psychiatric: Alert, Oriented x3, Normal Mood/Affect Skin: Normal Color, Warm/Dry Results Lab Laboratory Tests 05/05/23 10:51: White Blood Count 11.2H, Red Blood Count 3.43L, Hemoglobin 11.1L, Hematocrit 35, Mean Corpuscular Volume 102H, Mean Corpuscular Hemoglobin 32, Mean Corpuscular Hemoglobin Concent 32, Red Cell Distribution Width 13.7, Platelet Count 262, Mean Platelet Volume 9.9, Immature Granulocyte % (Auto) 0, Neutrophils (%) ( Auto) 73, Lymphocytes (%) (Auto) 17, Monocytes (%) (Auto) 9, Eosinophils (%) (Auto) 0, Basophils (%) (Auto) 0, Neutrophils # (Auto) 8.2H, Lymphocytes # (Auto) 1.9, Monocytes # (Auto) 1.0, Eosinophils # (Auto) 0.0, Basophils # (Auto) 0.1, Immature Granulocyte # (Auto) 0.0, Sodium Level 138, Potassium Level 3.8, Chloride Level 109H, Carbon Dioxide Level 19L, Anion Gap 10, Blood Urea Nitrogen 18, Creatinine 1.46H, Estimat Glomerular Filtration Rate 38, BUN/Creatinine Ratio 12, Glucose Level 115H, Calcium Level 8.7, Corrected Calcium 9.0, Total Bilirubin 0.5, Aspartate Amino Transf (AST/SGOT) 32, Alanine Aminotransferase (ALT/SGPT) 27, Alkaline Phosphatase 69, Total Protein 6.5, Albumin 3.6 05/06/23 06:01: White Blood Count 13.3H, Red Blood Count 3.28L, Hemoglobin 10.6L, Hematocrit 33L , Mean Corpuscular Volume 99, Mean Corpuscular Hemoglobin 32, Mean Corpuscular Hemoglobin Concent 33, Red Cell Distribution Width 13.3, Platelet Count 220, Mean Platelet Volume 10.1, Immature Granulocyte % (Auto) 0, Neutrophils (%) (Auto) 76H, Lymphocytes (%) (Auto) 13, Monocytes (%) (Auto) 10, Eosinophils (%) (Auto) 1, Basophils (%) (Auto) 0, Neutrophils # (Auto) 10.1H, Lymphocytes # (Auto) 1.7, Monocytes # (Auto) 1.3H, Eosinophils # (Auto) 0.1, Basophils # (Auto) 0.0, Immature Granulocyte # (Auto) 0.0, Sodium Level 138, Potassium Level 3.9, Chloride Level 110H, Carbon Dioxide Level 18L, Anion Gap 10, Blood Urea Nitrogen 16, Creatinine 0.91, Estimat Glomerular Filtration Rate 67, BUN/Creatinine Ratio 18, Glucose Level 114H, Calcium Level 9.1, Neutrophils % (Manual) 79, Lymphocytes % (Manual) 14, Monocytes % (Manual) 3, Eosinophils % (Manual) 2, Basophils % (Manual) 0, Band Neutrophils 2, Blood Morphology Comment NORMAL Microbiology 05/03/23 MRSA Screen - Final, Complete MRSA not isolated 05/03/23 Urine Culture - Preliminary, Resulted Gram Negative Bacillus 1 Culture In Progress Assessment/Plan Assessment/Plan Assessment/Plan s/p open repair incarcerated ventral abdominal incisional hernia repair with mesh * pain management * PT * Metronidazole Bilious Vomiting * monitor for continued vomiting * small sips of fluids * 1 episode noted Morbid Obesity * 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 States she hasn't thrown up since 4am, but is not very hungry. She states she has some abdominal pain, mostly midline Review of Systems General: Fatigue, Appetite (decreased, ) HEENT: Head Aches; No Visual Changes Pulmonary: No Dyspnea, No Cough Cardiovascular: No: Chest Pain, Palpitations Gastrointestinal: Nausea, Vomiting (bilious ), Abdominal Pain, Constipation (no bowel movement since prior to surgery ) Genitourinary: Other (pereira placed ) Objective Exam General Appearance: Chronically ill, Mild Distress, Obese HEENT: Moist Mucous Membranes Respiratory: Lungs Clear, Normal Breath Sounds, No Accessory Muscle Use, No Respiratory Distress Cardiovascular: Regular Rate, Rhythm, No Murmur Gastrointestinal: distended, tenderness (midline), other (wound clean/dry, no erythema noted ) Extremity: Pedal Edema (1+ on vental aspect ) Neurologic/Psychiatric: Alert, Oriented x3 Assessment/Plan Assessment/Plan Assessment/Plan s/p open repair incarcerated ventral abdominal incisional hernia repair with mesh * pain management * PT * Metronidazole Bilious Vomiting * monitor for continued vomiting * small sips of fluids, decrease amount she was taking Morbid 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 I then reviewed and verified all information documented by the medical student and made modifications to such information, when appropriate. I personally performed a physical exam, medical decision making and then discussed any differences between the notes and made revisions as necessary to create one note. Maira Schulz , 05/06/23 , 14:19 MIKA VICK May 06, 2023 10:27 MAIRA SCHULZ DO May 06, 2023 14:10
[2023-05-06] MEDS: cefTRIAXone IV/IM 1,000 MG in NS (IVPB) 50 ML 50 ML IV SCH (11:13)
[2023-05-06 12:21] VITALS: BP 122/60
--- NOTE | 2023-05-06 12:36 | Diagnostic Imaging Report ---
CLINICAL INDICATION: Patient with incarcerated hernia and fevers. EXAMS: X-ray of the chest PA view and x-ray of the abdomen supine and upright views. COMPARISONS: CT scan of the abdomen and pelvis with contrast dated 05/03/2023. FINDINGS: LUNGS/PLEURA: There is mild discoid atelectasis involving the bilateral perihilar regions and both lung bases. There is no lung infiltrate. There is no pneumothorax. There is no pleural effusion. MEDIASTINUM: Unremarkable. PULMONARY VASCULATURE: Unremarkable. HEART: Heart size is within normal limits for a portable projection.. BONES/EXTRATHORACIC SOFT TISSUE: ACDF is noted. There are degenerative spurs involving the thoracic spine. Old healed fracture changes involving the proximal right humerus are noted. ABDOMEN AND PELVIS: There are multiple surgical clips involving the epigastric, mid abdominal, and left upper quadrant region which were also noted on the prior study. There are dilated multiple loops of small bowel again noted which have slightly increased in the interim compared to the prior CT scan. There is no intraabdominal free air. There are air-fluid levels seen overlying the right side of the abdomen and pelvis region and involving the dilated loops of small bowel. There is no significant air within the colon as visualized. IMPRESSION: 1: There are findings concerning for small bowel obstruction which appear to have slightly increased. 2: There are postop change to the abdomen again noted. 3: There is no radiographic evidence of an acute cardiopulmonary process. There is mild bilateral lung atelectasis. Dictated by: Dictated on workstation # [id number]
[2023-05-06 15:26] VITALS: BP 122/64
[2023-05-06] MEDS ORDERED: NS (IVPB) 50 ML 50 ML ONE (16:44)
[2023-05-06] MEDS ORDERED: CEFEPIME 1 GM/10 ML VIAL ONE (16:45)
[2023-05-06] MEDS ORDERED: CEFEPIME INJECTION 2,000 MG in NS (IVPB) 50 ML 50 ML IV SCH (16:45)
[2023-05-06] MEDS: CEFEPIME 1,000 MG/NS 50 ML IVPB IV SCH ×2 (17:14)
[2023-05-06 19:20] VITALS: BP 115/76
[2023-05-06] MEDS: ACETAMINOPHEN 325 MG TABLET PO PRN (20:52)
[2023-05-07] VITALS: BP 110/72
[2023-05-07] MEDS: NS IV 1000 ML 1,000 ML IV SCH (00:37)
[2023-05-07] MEDS: HYDROmorphone INJECTION 2 MG/ML VIAL IVP PRN ×5 (00:37→23:18)
[2023-05-07] MEDS: CEFEPIME 1,000 MG/NS 50 ML IVPB IV SCH ×8 (00:37→19:31)
[2023-05-07] MEDS: ONDANSETRON INJECTION 4 MG/2 ML (SDV) IV PRN ×2 (00:42→19:27)
[2023-05-07 03:12] VITALS: BP 120/76
[2023-05-07] MEDS ORDERED: FUROSEMIDE INJECTION 40 MG/4 ML VIAL ONE (03:39)
[2023-05-07] MEDS ORDERED: NS + KCL 20 MEQ/L 1000 ML 1,000 ML IV ONE (03:39)
[2023-05-07] MEDS ORDERED: FUROSEMIDE INJECTION 40 MG/4 ML VIAL IVP ONE (03:45)
[2023-05-07] MEDS: NS + KCL 20 MEQ/L 1000 ML 1,000 ML IV SCH ×3 (03:51→20:20)
[2023-05-07 04:49] VITALS: BP 110/75
[2023-05-07 05:43] LABS: BASOPHILS % (AUTO) 0 % (0-10); EOSINOPHILS # (AUTO) 0.3 10^3/uL (0.0-0.3); EOSINOPHILS % (AUTO) 2 % (0-10); HEMATOCRIT 31 % (35-52); HEMOGLOBIN 9.8 g/dL (11.5-16.0); LYMPHOCYTES # (AUTO) 1.7 10^3/uL (1.0-4.0); LYMPHOCYTES % (AUTO) 13 % (12-44); MEAN CORPUSCULAR HEMOGLOBIN 32 pg (25-34); MEAN CORPUSCULAR HGB CONC 32 g/dL (32-36); MEAN CORPUSCULAR VOLUME 102 fL (80-99); MEAN PLATELET VOLUME 10.2 fL (9.0-12.2); MONOCYTES # (AUTO) 1.3 10^3/uL (0.0-1.0); MONOCYTES % (AUTO) 10 % (0-12); NEUTROPHILS # (AUTO) 9.4 10^3/uL (1.8-7.8); NEUTROPHILS % (AUTO) 74 % (42-75); PLATELET COUNT 222 10^3/uL (130-400); WHITE BLOOD COUNT 12.7 10^3/uL (4.3-11.0)
[2023-05-07 05:51] LABS: ALBUMIN 3.4 GM/DL (3.2-4.5)
[2023-05-07 05:52] LABS: POTASSIUM 3.6 MMOL/L (3.6-5.0)
[2023-05-07 05:53] LABS: CALCIUM 8.6 MG/DL (8.5-10.1)
[2023-05-07 05:54] LABS: TOTAL PROTEIN 6.6 GM/DL (6.4-8.2)
[2023-05-07 05:56] LABS: BILIRUBIN,TOTAL 0.4 MG/DL (0.1-1.0)
[2023-05-07 05:58] LABS: CREATININE SERUM 1.11 MG/DL (0.60-1.30)
[2023-05-07 07:22] VITALS: BP 123/69
[2023-05-07] MEDS: HYDROcodone/ACETAMINOPHEN 7.5 MG/325 MG TABLET PO PRN ×3 (09:20→17:46)
[2023-05-07] MEDS: POTASSIUM CHLORIDE 20 MEQ TABLET PO SCH (09:30)
[2023-05-07] MEDS: ENOXAPARIN 40 MG/0.4 ML SYRINGE SC SCH (09:30)
[2023-05-07] MEDS: metroNIDAZOLE 500MG/100ML IVPB 100 ML IV SCH ×2 (09:30→19:31)
[2023-05-07] MEDS: PANTOPRAZOLE INJECTION 40 MG VIAL IV SCH (09:48)
--- NOTE | 2023-05-07 10:28 | Progress Note ---
ISHMAEL MONTEMAYOR MD, RESIDENT 05/07/23 1027: Subjective HPI/CC On Admission Date Seen by Provider: May 07, 2023 Time Seen by Provider: 09:55 Chief complaint: Debility with UTI HPI: This is a 73-year-old female who presented with abdominal pain found to have incarcerated hernia management Dr. Monory. Currently she is doing a lot better but very weak so will initiate PT and OT and placed on empiric antibiotics for UTI. Surgery was large incarcerated ventral abd incisional hernia with small bowel, no strangulation. Subjective/Events-last exam Patient continues to appear quite ill this morning. She was noted to have some shortness of breath last night and was given a dose of Lasix given that she was having poor urine output. Patient seems to be having a little bit of respiratory distress this morning and sounds quite wheezy. She states she still having quite a bit of abdominal pain. Has not had a bowel movement and continues to not pass gas. She has been trying to walk around to help get her bowels moving. Review of Systems General: Fatigue HEENT: No Sore Throat Pulmonary: Dyspnea, Cough; No Pleuritic Chest Pain Cardiovascular: No: Chest Pain, Palpitations, Edema Gastrointestinal: Abdominal Pain, Constipation; No: Nausea, Vomiting, Diarrhea Genitourinary: No Dysuria Neurological: Weakness Objective Exam Vital Signs Vital Signs Date Time Temp Pulse Resp B/P (MAP) Pulse Ox O2 Delivery O2 Flow Rate FiO2 05/07/23 08:00 95 Nasal Cannula 2.00 05/07/23 07:22 37.1 95 16 123/69 (87) Capillary Refill : Less Than 3 Seconds General Appearance: Mild Distress HEENT: Normal ENT Inspection Neck: Full Range of Motion, Normal Inspection Respiratory: Chest Non Tender, No Accessory Muscle Use, No Respiratory Distress, Crackles, Wheezing Cardiovascular: Regular Rate, Rhythm, No Edema, No Murmur Gastrointestinal: Distended, Tenderness (Diffuse) Extremity: No Pedal Edema Neurologic/Psychiatric: Alert, Oriented x3 Skin: Normal Color, Warm/Dry Results/Procedures Lab Laboratory Tests 05/07/23 05:35 Patient resulted labs reviewed. Assessment/Plan Assessment and Plan Assess & Plan/Chief Complaint Patient is a 73-year-old female with a past medical history of HFpEF, hypertension who presented to the hospital with abdominal pain, status post repair of large incarcerated ventral abdominal incisional hernia with small bowel. Also noted to have a UTI. Status post repair of large incarcerated ventral abdominal incisional hernia -Recommendations per surgical team -Continue laxatives and stool softener to help with moving bowels -Encourage movement -Continue physical therapy -Pain medication per surgical team -Continue metronidazole per surgical team -Abdominal x-ray from yesterday notable for mildly increased small bowel obstruction however discussed with surgical team, no intervention required at this time, likely normal postsurgical changes Respiratory distress Patient showing increased work of breathing this morning despite adequate saturations -Obtaining BNP and echocardiogram, consulted cards appreciate recommendations Obtaining ABG Transferring patient up to the ICU to closely monitor respiratory status in case patient will require BiPAP Continue DuoNebs -Therapeutic Lovenox Once stabilized, will obtain CTA chest UTI -Urine culture growing Enterobacter resistant to penicillin and cefazolin -Continue treatment with IV cefepime Leukocytosis -Leukocytosis mildly improved today however patient did spike another fever yesterday. I did broaden antibiotics to cefepime and obtained blood cultures. Chest x-ray and abdominal x-ray negative for any signs of infection. -Continue IV cefepime -Follow-up blood cultures Hypertension HFpEF -Continue home medications LUCIO CHAMBERS DO 05/07/231940: Subjective Subjective/Events-last exam Patient rapidly declined today prompting transfer to ICU for wheezing and dyspnea ABG ordered Pain increased in abdomen Review of Systems Pulmonary: Dyspnea Gastrointestinal: Abdominal Pain Objective Exam General Appearance: WD/WN, Anxious, Chronically ill, Obese, Severe Distress Respiratory: Accessory Muscle Use, Crackles, Respiratory Distress, Wheezing Cardiovascular: Regular Rate, Rhythm, Tachycardia Assessment/Plan Assessment and Plan Assess & Plan/Chief Complaint Acute respiratory failure with wheezing and impending respiratory failure requiring biPAP Acute post op PE Overload Plan: ICU transfer Lovenox therapeutic ISHMAEL MONTEMAYOR MD, RESIDENT May 07, 2023 10:27 LUCIO CHAMBERS DO May 07, 2023 19:41
--- NOTE | 2023-05-07 11:12 | Progress Note - Surgery ---
MIKA VICK 05/07/23 1112: Subjective Date Seen by a Provider: May 07, 2023 Time Seen by a Provider: 10:58 Subjective/Events-last exam CC: abdominal pain, S/P open repair incarcerated ventral abdominal hernia Chikis, 73F, was sitting in her chair prior to interview. She appears more ill today. Chikis notes that she has had some SOB that started yesterday. She has audible wheezes when sitting near her. She notes that she was able to sleep mildly. When asked, she says that she feels okay, but appears ill. Chikis notes that she has been walking to the toilet since her pereira was removed. She hopes this will relieve the constipation. She still has not had a BM or passed g as. She notes that her abdominal pain has improved today. She says that she is tolerating the clear liquid diet. She notes that she has not vomited since the day prior. She notes that if she coughs, it can make her feel nauseous. She has no other concerns. Review of Systems General: Fatigue; No Malaise; Appetite HEENT: Head Aches (no change from yesterday); No Visual Changes Pulmonary: Dyspnea, Cough (occurs "few" times an hour ) Cardiovascular: No: Chest Pain, Palpitations Gastrointestinal: Nausea (post-tussive ), Abdominal Pain (near incision, worse with coughing ), Constipation (No BM or passing gas ); No: Vomiting Genitourinary: No Frequency, No Incontinence Musculoskeletal: back pain (chronic lower back ), leg pain (notes prior to admission, chronic ) Neurological: No: Weakness, Confusion Objective Exam Vital Signs Date Time Temp Pulse Resp B/P (MAP) Pulse Ox O2 Delivery O2 Flow Rate FiO2 05/07/23 08:00 95 Nasal Cannula 2.00 05/07/23 07:22 37.1 95 16 123/69 (87) 99 Nasal Cannula 3.00 05/07/23 06:39 Nasal Cannula 2.00 05/07/23 04:49 37.4 94 20 110/75 (87) 95 Nasal Cannula 2.00 2.00 05/07/23 03:12 37.5 120 20 120/76 (91) 98 Nasal Cannula 2.00 2.00 05/07/23 00:00 36.9 86 16 110/72 (85) 100 Nasal Cannula 2.00 2.00 05/06/23 20:52 37.5 05/06/23 20:00 100 Nasal Cannula 2.00 05/06/23 19:20 37.5 94 16 115/76 (89) 100 Nasal Cannula 2.00 2.00 05/06/23 17:18 37.2 94 16 98 05/06/23 15:26 38.8 116 22 122/64 (83) 96 Nasal Cannula 2.00 05/06/23 12:21 36.3 92 20 122/60 (80) 99 Nasal Cannula 2.00 I & O 05/07/23 06:59 Intake Total 1460 ml Output Total 1300 ml Balance 160 ml Capillary Refill : Less Than 3 Seconds General Appearance: Mild Distress (SOB, wheezing ), Obese HEENT: Moist Mucous Membranes; No Scleral Icterus (L), No Scleral Icterus (R) Neck: No Carotid Bruit, No JVD Respiratory: Chest Non Tender, No Accessory Muscle Use, No Respiratory Distress, Crackles (B/L ), Wheezing (appear worse on R-side ) Cardiovascular: Regular Rate, Rhythm, No Edema, No Murmur Gastrointestinal: distended, tenderness (midline, improved ), other (wound clean/dry, no erythema noted ) Extremity: No Pedal Edema; No Slow Capillary Refill Neurologic/Psychiatric: Alert, Oriented x3 Skin: Warm/Dry, Other (incision on ventral abdomen) Results Lab Laboratory Tests 05/07/23 05:35: White Blood Count 12.7H, Red Blood Count 3.03L, Hemoglobin 9.8L, Hematocrit 31L, Mean Corpuscular Volume 102H, Mean Corpuscular Hemoglobin 32, Mean Corpuscular Hemoglobin Concent 32, Red Cell Distribution Width 13.3, Platelet Count 222, Mean Platelet Volume 10.2, Immature Granulocyte % (Auto) 1, Neutrophils (%) (Auto) 74, Lymphocytes (%) (Auto) 13, Monocytes (%) (Auto) 10, Eosinophils (%) (Auto) 2, Basophils (%) (Auto) 0, Neutrophils # (Auto) 9.4H, Lymphocytes # (Auto) 1.7, Monocytes # (Auto) 1.3H, Eosinophils # (Auto) 0.3, Basophils # (Auto) 0.0, Immature Granulocyte # (Auto) 0.1, Sodium Level 138, Potassium Level 3.6, Chloride Level 111H, Carbon Dioxide Level 17L, Anion Gap 10, Blood Urea Nitrogen 18, Creatinine 1.11, Estimat Glomerular Filtration Rate 53, BUN/Cre atinine Ratio 16, Glucose Level 110H, Calcium Level 8.6, Corrected Calcium 9.1, Total Bilirubin 0.4, Aspartate Amino Transf (AST/SGOT) 41H, Alanine Aminotransferase (ALT/SGPT) 22, Alkaline Phosphatase 83, Total Protein 6.6, Albumin 3.4 05/07/23 11:01: Glucometer 163H Microbiology 05/03/23 MRSA Screen - Final, Complete MRSA not isolated 05/03/23 Urine Culture - Final, Complete Enterobacter cloacae complex Assessment/Plan Assessment/Plan Assessment/Plan s/p open repair incarcerated ventral abdominal incisional hernia repair with mesh * pain management * PT * Metronidazole post-operative Small Bowel Obstruction * no bilious vomit today, not passing gas or BM * x-ray series noted dilated loops of small bowel, increased 05/06 * anti-constipation medications * Senna, Docusate, Lactulose Shortness of Breath * Encourage ambulation, flowtree * Duonebs * Medical team management Morbid Obesity * travel counselor UTI * Improved WBC today, continue to monitor * cefepime, converted from ceftriaxone HTN VALENTIN SCHULZ DO 05/07/23 1645: Subjective Time Seen by a Provider: 14:39 Subjective/Events-last exam I saw pt just as she was heading down for CTA chest/abd/pelvis and then again once she got back up. She was moved from 4th floor to the ICU because of respiratory distress. She was complaining of some SOB; getting worse. Review of Systems General: Fatigue HEENT: Head Aches (no change from yesterday); No Visual Changes Pulmonary: Dyspnea, Cough (occurs "few" times an hour ) Cardiovascular: No: Chest Pain, Palpitations Gastrointestinal: Nausea (post-tussive ), Abdominal Pain (near incision, worse with coughing ), Constipation (No BM or passing gas ); No: Vomiting Musculoskeletal: back pain (chronic lower back ), leg pain (notes prior to admission, chronic ) Neurological: No: Weakness, Confusion Objective Exam General Appearance: Anxious, Moderate Distress, Obese HEENT: Moist Mucous Membranes; No Scleral Icterus (L), No Scleral Icterus (R) Respiratory: Accessory Muscle Use, Crackles (B/L ), Decreased Breath Sounds, Respiratory Distress, Wheezing (appear worse on R-side ) Cardiovascular: Regular Rate, Rhythm, No Murmur Gastrointestinal: distended, tenderness, other (wound clean/dry, erythema noted in the pannus (dependent portion of abdomen)) Neurologic/Psychiatric: Alert Skin: Warm/Dry Assessment/Plan Assessment/Plan Assessment/Plan Acute Respiratory Distress - PE seen on right on CTA Encourage ambulation, flowtree, Duonebs. Timing of anticoagulation will need to be discussed if she needs full anticoagulation, could probably start today s/p open repair incarcerated ventral abdominal incisional hernia repair with mesh * pain management * PT * Metronidazole post-operative Small Bowel Obstruction * no bilious vomit today, not passing gas or BM * x-ray series noted dilated loops of small bowel, increased 05/06 * Morbid Obesity * travel counselor UTI * Improved WBC today, continue to monitor * cefepime, converted from ceftriaxone HTN Supervisory-Addendum Brief Verification & Attestation Participated in pt care: history, MDM, physical Personally performed: exam, history, MDM, supervision of care Care discussed with: Medical Student Procedures: n/a Verification and Attestation of Medical Student E/M Service A medical student performed and documented this service. I then reviewed and verified all information documented by the medical student and made modifications to such information, when appropriate. I personally performed a physical exam, medical decision making and then discussed any differences between the notes and made revisions as necessary to create one note. Valentin Schulz , 05/07/23 , 16:45 MIKA VICK May 07, 2023 11:12 VALENTIN SCHULZ DO May 07, 2023 16:45
[2023-05-07] MEDS ORDERED: LACTULOSE SYRUP 10GM/15ML 30ML UDC PO PRN (11:45)
[2023-05-07] MEDS ORDERED: SENNOSIDES 8.6 MG TABLET PO NR (12:00)
[2023-05-07] MEDS ORDERED: DOCUSATE SODIUM 100 MG CAPSULE PO NR (12:00)
[2023-05-07 12:34] VITALS: BP 110/53
[2023-05-07] MEDS: RT-Ipratropium/Albuterol NEB 3 ML VIAL INH SCH ×3 (12:34→22:25)
[2023-05-07 12:41] LABS: ABG BASE EXCESS -6.6 MMOL/L (-2.5-2.5); ABG OXYGEN SATURATION 97 % (94-100); ABG PCO2 35 MMHG (35-45); ABG PO2 140 MMHG (79-93); ABG TCO2 19.6 MMOL/L (21.0-31.0)
[2023-05-07 12:46] LABS: ABG PH 7.33 (7.37-7.43); INSPIRED O2 3; VENTILATOR NO
--- NOTE | 2023-05-07 13:24 | Consultation-Cardiology ---
HPI-Cardiology Cardiology Consultation: Date of Consultation 05/07/23 Time Seen by a Provider: 11:50 Date of Admission Attending Physician Mica Portillo Aprn Admitting Physician Admitting Physician: Les Monroy MD Attending Physician: Les Monroy MD Consulting Physician DANA BLANKENSHIP MD, MA, FACP, FACC, FSCAI, CCDS Physician requesting consult: Dr Carroll HPI: Chief Complaint: Reason for Card consult: Shortness of breath 73 yo woman who underwent open incarcerated ventral abdominal incisional hernia repair with mesh and complex layered closure of the subcutaneous tissue and skin 15 cm in length on 05/04/23. On day 2 and 3 post-op, she has had increasing shortness of breath. Dr Carroll, her hospitalist, has asked us this morning to see her. She does not report cp. She denies palp or syncope. Shortness of breath has been progressive. She notes that wheezing has been increasing. She does not report n/v/d. She reports gen malaise Review of Systems-Cardiology Review of Systems Constitutional: As described under HPI Eyes: No vision change Ears/Nose/Throat: No ear discharge, No nasal drainage, No recent hearing loss Respiratory: As described under HPI Cardiovascular: As described under HPI Gastrointestinal: As described under HPI Genitourinary: No dysuria, No hematuria, No urine frequency changes Musculoskeletal: No back pain, No joint pain Skin: No rash, No ulcerations Psychiatric/Neurological: No seizure, No focal weakness, No syncope Hematologic: No bleeding abnormalities All Other Systems Reviewed Negative Unless Noted: Yes [id number] Hx Patient Social History Marrital Status: single Employed/Student: retired Smoking Status: Never a Smoker 2nd Hand Smoke Exposure: No Alcohol Use?: No Pt feels they are or have been: No Immunizations Up To Date Date of Pneumonia Vaccine: Mar 11, 2016 Past Medical History PMH As described under Assessment. Family Medical History Family Medical History: She reports fam h/o of early CAD (father and a brother had MIs in their late 50s) Allergies and Home Medications Allergies Coded Allergies: No Known Drug Allergies (Unverified , 01/09/15) Patient Home Medication List Home Medication List Reviewed: Yes Acetaminophen (Tylenol Extra Strength) 500 Mg Tablet, 1,000 MG PO Q8H PRN for PAIN-MILD (1-4), (Reported) Entered as Reported by: BILLY MEHREEN on 05/04/231127 Last Action: Held Acetaminophen/Diphenhydramine (Tylenol Pm Ex-Strength Caplet) 500 Mg-25 Mg Tablet, 3 EACH PO HS, (Reported) Entered as Reported by: BILLY VERDE on 05/04/231127 Last Action: Reviewed Ascorbate Calcium (Vitamin C) 500 Mg Tablet, 500 MG PO DAILY, (Reported) Entered as Reported by: BILLY VERDE on 05/04/231127 Last Action: Reviewed Atorvastatin Calcium (Atorvastatin Calcium) 10 Mg Tablet, 10 MG PO DAILY, (Reported) Entered as Reported by: BILLY VERDE on 05/04/231127 Last Action: Continued Calcium Carbonate (Calcium) 600 Mg Calcium (1500 Mg) Tablet, 600 MG PO DAILY, (Reported) Entered as Reported by: BILLY VERDE on 05/04/231127 Last Action: Held Cholecalciferol (Vitamin D3) (Vitamin D3) 50 Mcg (2000 Unit) Tablet, 50 MCG PO DAILY, (Reported) Entered as Reported by: BILLY VERDE on 05/04/231127 Last Action: Reviewed Cyanocobalamin (Vitamin B-12) (Vitamin B-12) 1,000 Mcg Capsule, 1,000 MCG PO DAILY, (Reported) Entered as Reported by: BILLY VERDE on 05/04/231127 Last Action: Reviewed Diphenhydramine HCl (Benadryl Allergy) 25 Mg Tablet, 50 MG PO DAILY, (Reported) Entered as Reported by: BILLY VERDE on 05/04/231127 Last Action: Held Duloxetine HCl (Duloxetine HCl) 60 Mg Capsule.dr, 60 MG PO 1200, (Reported) Entered as Reported by: BILLY VERDE on 05/04/231127 Last Action: Reviewed Fish Oil/Dha/Epa (Fish Oil 1,200 mg Fish Oil) 1,200 Mg-144 Mg-216 Mg Capsule, 1 EACH PO DAILY, (Reported) Entered as Reported by: BILLY VERDE on 05/04/231127 Last Action: Reviewed Hydrochlorothiazide (Hydrochlorothiazide) 25 Mg Tablet, 25 MG PO HS, (Reported) Entered as Reported by: BILLY VERDE on 05/04/231127 Last Action: Held Hydrocodone/Acetaminophen (Hydrocodone-Acetamin 7.5-325) 7.5 Mg-325 Mg Tablet, 1 EACH PO Q4H PRN for PAIN-BREAKTHROUGH Prescribed by: LES MONROY on 05/04/23 1726 Lisinopril (Lisinopril) 20 Mg Tablet, 40 MG PO DAILY, (Reported) Entered as Reported by: BILLY VERDE on 02/20/19834 Last Action: Continued Metoprolol Succinate (Metoprolol Succinate) 50 Mg Tab.er.24h, 50 MG PO DAILY, (Reported) Entered as Reported by: BILLY VERDE on 05/04/231127 Last Action: Continued Potassium Chloride (Potassium Chloride) 20 Meq Tab.er.prt, 20 MEQ PO DAILY, (Reported) Entered as Reported by: BILLY VERDE on 05/04/231127 Last Action: Continued Turmeric/Turmeric Root Extract (Turmeric 500 mg Capsule) 450 Mg-50 Mg Capsule, 2 EACH PO 1200, (Reported) Entered as Reported by: BILLY VERDE on 05/04/231127 Last Action: Reviewed Zinc Sulfate (Zinc) 50 Mg Zinc (220 Mg) Tablet, 50 MG PO DAILY, (Reported) Entered as Reported by: BILLY VERDE on 05/04/231127 Last Action: Reviewed Discontinued Medications Acetaminophen/Diphenhydramine (Tylenol Pm Ex-Strength Caplet) 1 Each Tablet, 2 TAB PO HS PRN for MILD PAIN/SLEEP, (Reported) Discontinued Reason: No Longer Taking Entered as Reported by: AGUSTO HARO on 01/10/19 0942 Last Action: Discontinued Aspirin (Aspirin EC) 81 Mg Tablet.dr, 81 MG PO DAILY, (Reported) Discontinued Reason: No Longer Taking Entered as Reported by: BILLY VERDE on 02/20/19834 Last Action: Discontinued Aspirin/Acetaminophen/Caffeine (Excedrin Migraine Caplet) 1 Each Tablet, 2 EACH PO Q6-8HR PRN for Headache, (Reported) Discontinued Reason: No Longer Taking Entered as Reported by: BILLY VERDE on 02/20/19834 Last Action: Discontinued Atorvastatin Calcium (Lipitor) 10 Mg Tablet, 10 MG PO DAILY Discontinued Reason: No Longer Taking Prescribed by: HOLLIE LOPEZ on 02/20/19 1033 Last Action: Discontinued Diphenhydramine HCl (Benadryl) 25 Mg Capsule, 25 MG PO TID PRN for ALLERGIES, (Reported) Discontinued Reason: No Longer Taking Entered as Reported by: AGUSTO HARO on 01/10/19 0942 Last Action: Discontinued Hydrocodone/Acetaminophen (Hydrocodone/Acetaminophen 5 MG/325 MG TAB) 1 Each Tablet, 1 TAB PO Q6H Discontinued Reason: No Longer Taking Prescribed by: ASH MUSA on 03/30/19 1354 Last Action: Discontinued Metoprolol Tartrate (Metoprolol Tartrate) 25 Mg Tablet, 25 MG PO BID, (Reported) Discontinued Reason: No Longer Taking Entered as Reported by: BILLY VERDE on 02/20/19 0835 Last Action: Discontinued Physical Exam-Cardiology Physical Exam Vital Signs/I&O 05/07/23 05/07/23 05/07/23 05/07/23 03:12 04:49 06:39 07:22 Temp 37.5 37.4 37.1 Pulse 120 94 95 Resp 20 20 16 B/P (MAP) 120/76 (91) 110/75 (87) 123/69 (87) Pulse Ox 98 95 99 O2 Delivery Nasal Cannula Nasal Cannula Nasal Cannula Nasal Cannula O2 Flow Rate 2.00 2.00 2.00 3.00 2.00 2.00 05/07/23 05/07/23 08:00 12:41 Pulse 109 Pulse Ox 95 O2 Delivery Nasal Cannula O2 Flow Rate 2.00 05/06/23 23:59 Intake Total 860 ml Output Total 600 ml Balance 260 ml Capillary Refill : Less Than 3 Seconds Constitutional: AAO x 3, well-developed, well-nourished HEENT: PERRL, EOMI, hearing is well preserved; No xanthelasmas are seen Neck: carotid pulses are 2 + bilaterally, with good upstrokes Respiratory: No accessory muscle use; chest expansion is symmetric, chest is bilaterally symmetric, other (extensive sibilant rhonchi) Cardiovascular: regular rate-rhythm, S1 and S2, systolic murmur (soft JEB at card base) Gastrointestinal: other (post-op, we did not attempt palpation) Extremities: swelling (1-2 + pedal edema); No clubbing, No cyanosis Neurologic/Psychiatric: oriented x 3, other (moves all limbs equally) Skin: normal color, warm/dry; No diaphoresis, No rash on exposed areas, No ulcerations on exposed areas Data Review Labs Laboratory Tests 05/07/23 05:35: White Blood Count 12.7H, Red Blood Count 3.03L, Hemoglobin 9.8L, Hematocrit 31L, Mean Corpuscular Volume 102H, Mean Corpuscular Hemoglobin 32, Mean Corpuscular Hemoglobin Concent 32, Red Cell Distribution Width 13.3, Platelet Count 222, Mean Platelet Volume 10.2, Immature Granulocyte % (Auto) 1, Neutrophils (%) (Auto) 74, Lymphocytes (%) (Auto) 13, Monocytes (%) (Auto) 10, Eosinophils (%) (Auto) 2, Basophils (%) (Auto) 0, Neutrophils # (Auto) 9.4H, Lymphocytes # (Auto) 1.7, Monocytes # (Auto) 1.3H, Eosinophils # (Auto) 0.3, Basophils # (Auto) 0.0, Immature Granulocyte # (Auto) 0.1, Sodium Level 138, Potassium Level 3.6, Chloride Level 111H, Carbon Dioxide Level 17L, Anion Gap 10, Blood Urea Nitrogen 18, Creatinine 1.11, Estimat Glomerular Filtration Rate 53, BUN/Creatinine Ratio 16, Glucose Level 110H, Calcium Level 8.6, Corrected Calcium 9.1, Total Bilirubin 0.4, Aspartate Amino Transf (AST/SGOT) 41H, Alanine Aminotransferase (ALT/SGPT) 22, Alkaline Phosphatase 83, Troponin I < 0.028, B- Type Natriuretic Peptide 77.1, Total Protein 6.6, Albumin 3.4 05/07/23 11:01: Glucometer 163H 05/07/23 12:34: Arterial Blood pH 7.33*L, Arterial Blood Partial Pressure CO2 35, Arterial Blood Partial Pressure O2 140H, Arterial Blood HCO3 19L, Arterial Blood Total CO2 19.6L, Arterial Blood Oxygen Saturation 97, Arterial Blood Base Excess -6.6L, Blood Gas Ventilator Setting NO, Blood Gas Inspired Oxygen 3 Microbiology 05/03/23 MRSA Screen - Final, Complete MRSA not isolated 05/03/23 Urine Culture - Final, Complete Enterobacter cloacae complex Laboratory Tests 05/06/23 06:01 05/07/23 05:35 A/P-Cardiology Assessment/Admission Diagnosis Shortness of breath - consider ac diastolic CHF or volume overload or bronchospasm or pulm embolism No evidence of ac AZ on ECG during symptoms Open incarcerated ventral abdominal incisional hernia repair with mesh and complex, layered skin closure on 05/04/23 Nonobstructive coronary artery disease per cardiac catheterization done February 20, 2019 (Dr Lopez) Hypertension Family history of early CAD History of gastric stapling in the remote past, cholecystectomy, appendectomy and . Obesity - BMI 45 Mild bilateral carotid stenosis on u/s of 11/17/22 (Dr Lopez) Discussion and Recomendations * Transfer to ICU * iv diuretics as needed and as tolerated * Tele * Bronchodilator and resp support as determined by Dr Carroll * Discussed with Dr Carroll and advised eval for PE * Monitor labs DANA BLANKENSHIP MD FACP FAC CCDS May 07, 2023 13:24
--- NOTE | 2023-05-07 13:36 | Tele-ICU Consult ---
History of Present Illness History of Present Illness Date Seen by Provider: May 07, 2023 Time Seen by Provider: 13:22 History of Present Illness eICU Critical Care Consult 73 yo F had explor lap for incarcerated hernia with small bowel, no strangulation. This am became SOB and had decreased UO, given 40 mg IVP Lasix. Also having abd pain. WBC 12.7 which is down, Hb 9.8, plt 222, BMP ok HCO3 has been steady around 18, ABG7.33/35/140 Has been having wheezing, KUB done shows increase in small bowel air, not passing gas Pt had mesh inserted for hernia repair and is on IV Cefepime and IV Flagyl At present on BiPAP 17/01, FIO2 25%, got another dose of IV Lasix. Abd wall is a little red Allergies and Home Medications Allergies Coded Allergies: No Known Drug Allergies (Unverified , 01/09/15) Home Medications Acetaminophen 500 Mg Tablet, 1,000 MG PO Q8H PRN for PAIN-MILD (1-4), (Reported) TAKES 2 (500MG) TABS Acetaminophen/Diphenhydramine 500 Mg-25 Mg Tablet, 3 EACH PO HS, (Reported) TAKES 3 TABS Ascorbate Calcium 500 Mg Tablet, 500 MG PO DAILY, (Reported) Atorvastatin Calcium 10 Mg Tablet, 10 MG PO DAILY, (Reported) Calcium Carbonate 600 Mg Calcium (1500 Mg) Tablet, 600 MG PO DAILY, (Reported) Cholecalciferol (Vitamin D3) 50 Mcg (2000 Unit) Tablet, 50 MCG PO DAILY, (Reported) Cyanocobalamin (Vitamin B-12) 1,000 Mcg Capsule, 1,000 MCG PO DAILY, (Reported) Diphenhydramine HCl 25 Mg Tablet, 50 MG PO DAILY, (Reported) TAKES 2 (25MG) TABS Duloxetine HCl 60 Mg Capsule.dr, 60 MG PO 1200, (Reported) Fish Oil/Dha/Epa 1,200 Mg-144 Mg-216 Mg Capsule, 1 EACH PO DAILY, (Reported) Hydrochlorothiazide 25 Mg Tablet, 25 MG PO HS, (Reported) Hydrocodone/Acetaminophen 7.5 Mg-325 Mg Tablet, 1 EACH PO Q4H PRN for PAIN- BREAKTHROUGH Prescribed by: LES JUÁREZ on 05/04/23 1486 Lisinopril 20 Mg Tablet, 40 MG PO DAILY, (Reported) TAKES 2 (20MG) TABS Metoprolol Succinate 50 Mg Tab.er.24h, 50 MG PO DAILY, (Reported) Potassium Chloride 20 Meq Tab.er.prt, 20 MEQ PO DAILY, (Reported) Turmeric/Turmeric Root Extract 450 Mg-50 Mg Capsule, 2 EACH PO 1200, (Reported) Zinc Sulfate 50 Mg Zinc (220 Mg) Tablet, 50 MG PO DAILY, (Reported) Past Medical/Social/Family Hx Patient Social History Marrital Status: single Employed/Student: retired Tobacco Use?: Yes Smoking Status: Never a Smoker Smokeless Tobacco Frequency: Never a User Use of E-Cig and/or Vaping dev: No Substance use?: No Alcohol Use?: No Pt stated abuse/neglect: No Immunizations Up To Date Influenza Vaccine Up-to-Date: No; Not Current Tetanus Booster (TDap): Less Than 5 Years Date of Pneumonia Vaccine: Mar 11, 2016 Current Status status: No Advance Directives: No Communicates: Verbally Primary Language: [place] Preferred Spoken Language: [place] Sensory deficits: Vision impairment Implanted or Applied Medical D: Orthopedic hardware Review of Systems Constitutional: see HPI EENTM: see HPI Respiratory: see HPI Cardiovascular: see HPI Gastrointestinal: see HPI Genitourinary: see HPI Musculoskeletal: see HPI Skin: see HPI Psychiatric/Neurological: See HPI Focused Exam Height, Weight, BMI Height: 5'5.00" Weight: 211lbs. 5.0oz. 95.299005gs; 45.39 BMI Method:Stated Exam Exam Patient acknowledged, consented, and participated in this virtual visit which w as conducted using real time audio/video Vital Signs Date Time Temp Pulse Resp B/P (MAP) Pulse Ox O2 Delivery O2 Flow Rate FiO2 05/07/23 12:41 109 05/07/23 08:00 95 Nasal Cannula 2.00 05/07/23 07:22 37.1 95 16 123/69 (87) 99 Nasal Cannula 3.00 05/07/23 06:39 Nasal Cannula 2.00 05/07/23 04:49 37.4 94 20 110/75 (87) 95 Nasal Cannula 2.00 2.00 05/07/23 03:12 37.5 120 20 120/76 (91) 98 Nasal Cannula 2.00 2.00 05/07/23 00:00 36.9 86 16 110/72 (85) 100 Nasal Cannula 2.00 2.00 05/06/23 20:52 37.5 05/06/23 20:00 100 Nasal Cannula 2.00 05/06/23 19:20 37.5 94 16 115/76 (89) 100 Nasal Cannula 2.00 2.00 05/06/23 17:18 37.2 94 16 98 05/06/23 15:26 38.8 116 22 122/64 (83) 96 Nasal Cannula 2.00 I & O 05/07/23 06:59 Intake Total 1460 ml Output Total 1300 ml Balance 160 ml Height & Weight Height: 5'5.00" Weight: 211lbs. 5.0oz. 95.724032tu; 45.39 BMI Method:Stated General Appearance: Mild Distress (SOB, wheezing ), Obese HEENT: Moist Mucous Membranes; No Scleral Icterus (L), No Scleral Icterus (R) Neck: No Carotid Bruit, No JVD Respiratory: Chest Non Tender, No Accessory Muscle Use, No Respiratory Distress, Crackles (B/L ), Wheezing (appear worse on R-side ) Cardiovascular: Regular Rate, Rhythm, No Edema, No Murmur Capillary Refill: Less Than 3 Seconds Gastrointestinal: distended, tenderness (midline, improved ), other (abd wall a little red, warm) Extremity: No Pedal Edema; No Slow Capillary Refill Neurologic/Psychiatric: Alert, Oriented x3 Skin: Normal Color, Warm/Dry Results Lab Laboratory Tests 05/06/23 06:01 05/07/23 05:35 Assessment/Plan Assessment/Plan Possible sepsis, CHF, pt given 2nd dose of IV Lasix, to get CTA chest abd pelvis, d/d wound infection, CHF, PNA await scan, continue abx, do blood cultures Spoke with pastry decorator: Critically Ill Patient MICHELLE KILPATRICK MD May 07, 2023 13:36
[2023-05-07] MEDS ORDERED: POTASSIUM CL 10MEQ/50ML IVPB 50 ML IV SCH (13:45)
[2023-05-07] MEDS ORDERED: FUROSEMIDE INJECTION 40 MG/4 ML VIAL IVP NR (14:00)
[2023-05-07] MEDS: ENOXAPARIN 100 MG/1 ML SYRINGE SC SCH (14:20)
[2023-05-07] MEDS: NS IV 500 ML 500 ML IV PRN (14:21)
[2023-05-07] MEDS ORDERED: IOHEXOL 350 MG/ML 100 ML (OMNIPAQUE 350) VIAL IV ONE (14:45)
[2023-05-07] MEDS ORDERED: NS 100 ML (IVPB) BAG IV ONE (14:45)
[2023-05-07] MEDS ORDERED: HOLD METFORMIN - RECEIVED CONTRAST 20 ML VIAL IV SCH (14:45)
[2023-05-07 15:00] VITALS: BP 108/68
[2023-05-07] MEDS: fentaNYL INJECTION 100 MCG/2 ML VIAL IV PRN ×4 (15:01→21:12)
--- NOTE | 2023-05-07 15:06 | Diagnostic Imaging Report ---
PROCEDURE: CT angiography of the chest with and without contrast and CT of the abdomen and pelvis with and without contrast. TECHNIQUE: Non contrast-enhanced helical images were obtained through the chest, abdomen and pelvis. Contrast-enhanced thin section helical images were obtained through the chest, abdomen and pelvis with intravenous contrast timed for the optimal opacification of the arterial structures per departmental CTA protocol. Post-processing, retro reconstructions and interpretation of angiographic images of the vessels was performed. 3D MIP reconstructions were performed and reviewed. Auto Exposure Controls were utilized during the CT exam to meet ALARA standards for radiation dose reduction. INDICATION: Abdominal pain. Shortness of breath. History of hernia. COMPARISON: 05/03/2023. CTA chest: Pulmonary emboli are visualized in the subsegmental pulmonary arteries of the right lower lobe. No evidence of right heart strain. The heart size is within normal limits. No pericardial effusion is present. There is no mediastinal, hilar, or axillary lymphadenopathy. The lungs demonstrate no pulmonary nodules or masses. Atelectasis is seen in the left lung base. There are no focal areas of consolidation. No pneumothoraces are present. No central endobronchial obstructing lesions are identified. There are no pleural effusions. No acute osseous abnormalities. CTA abdomen and pelvis: No aneurysm or dissection in the abdominal aorta. The liver, spleen, pancreas, adrenal glands, and kidneys have a normal appearance. The gallbladder surgically absent. There is no pathologically enlarged mesenteric or retroperitoneal adenopathy. There has been interval surgical repair of a ventral hernia right of midline. Inflammation and edema is seen in the ventral soft tissues in the surgical site. The previously visualized intra-abdominal loops of bowel have been reduced into the abdominal cavity. Persistent fluid-filled dilated loops of small bowel are seen in the abdomen and pelvis without the overall appearance improved since the prior exam. No definite transition point is seen. Postsurgical changes of gastric bypass are noted in the upper abdomen. No free fluid or free air. No acute osseous abnormality. Posterior fusion is seen at L3-L4. The urinary bladder is decompressed with a Hui in place. There is no free air, loculated collection, or adenopathy in the pelvis. IMPRESSION: 1. Small burden of pulmonary emboli involving the subsegmental pulmonary arteries of the right lower lobe. No pulmonary infarct or right heart strain. 2. Interval surgical repair of the ventral hernia right of midline with reduction of the entrapped loops of bowel within the hernia sac. There are persistent fluid-filled dilated loops of small bowel in the abdomen and pelvis although overall this appears improved. Recommend continued follow-up. Report was faxed to the nurse station at 3:00 p.m., by jasper. Dictated by: Dictated on workstation # [id number]
--- NOTE | 2023-05-07 15:08 | Diagnostic Imaging Report ---
INDICATION: Hypoxia. COMPARISON: 05/03/2023. TECHNIQUE: Single radiograph of the chest dated May 07, 2023. FINDINGS: The cardiac silhouette is mildly enlarged. Mild central pulmonary vascular congestion. Chronic elevation of the right hemidiaphragm. Low lung volumes. Mitral valve annular calcifications. New mild patchy opacities are identified within the right upper lung and bilateral lung bases. No significant pleural effusion. No pneumothorax. No acute osseous abnormality. Postsurgical change is again noted overlying the upper abdomen. IMPRESSION: Decreased lung volumes with new mild bibasilar and right upper lung atelectasis and/or pneumonitis. Mild cardiomegaly with mild central pulmonary vascular congestion without significant pleural effusion. Dictated by: Dictated on workstation # [id number]
[2023-05-07] MEDS ORDERED: POTASSIUM CHLORIDE 20 MEQ TABLET PO NR (17:00)
[2023-05-07] MEDS: PROMETHAZINE INJ 25 MG/ML VIAL IVP PRN (21:12)
[2023-05-07] MEDS: DOCUSATE SODIUM 100 MG CAPSULE PO SCH (21:14)
[2023-05-08] MEDS: CEFEPIME 1,000 MG/NS 50 ML IVPB IV SCH ×8 (02:24→20:25)
[2023-05-08] MEDS: ENOXAPARIN 100 MG/1 ML SYRINGE SC SCH ×2 (02:24→12:49)
[2023-05-08] MEDS: HYDROmorphone INJECTION 2 MG/ML VIAL IVP PRN ×5 (02:25→22:26)
[2023-05-08] MEDS: RT-Ipratropium/Albuterol NEB 3 ML VIAL INH SCH ×5 (02:41→21:07)
[2023-05-08 04:50] LABS: BASOPHILS % (AUTO) 0 % (0-10); EOSINOPHILS # (AUTO) 0.4 10^3/uL (0.0-0.3); EOSINOPHILS % (AUTO) 4 % (0-10); HEMATOCRIT 28 % (35-52); HEMOGLOBIN 8.9 g/dL (11.5-16.0); LYMPHOCYTES # (AUTO) 1.3 10^3/uL (1.0-4.0); LYMPHOCYTES % (AUTO) 14 % (12-44); MEAN CORPUSCULAR HEMOGLOBIN 32 pg (25-34); MEAN CORPUSCULAR HGB CONC 32 g/dL (32-36); MEAN CORPUSCULAR VOLUME 99 fL (80-99); MEAN PLATELET VOLUME 10.2 fL (9.0-12.2); MONOCYTES # (AUTO) 1.1 10^3/uL (0.0-1.0); MONOCYTES % (AUTO) 12 % (0-12); NEUTROPHILS # (AUTO) 6.7 10^3/uL (1.8-7.8); NEUTROPHILS % (AUTO) 70 % (42-75); PLATELET COUNT 245 10^3/uL (130-400); WHITE BLOOD COUNT 9.5 10^3/uL (4.3-11.0)
[2023-05-08 04:57] LABS: ALBUMIN 3.1 GM/DL (3.2-4.5)
[2023-05-08 04:58] LABS: POTASSIUM 3.6 MMOL/L (3.6-5.0)
[2023-05-08 04:59] LABS: CALCIUM 8.6 MG/DL (8.5-10.1)
[2023-05-08 05:02] LABS: BILIRUBIN,TOTAL 0.3 MG/DL (0.1-1.0)
[2023-05-08 05:03] LABS: PHOSPHORUS 1.9 MG/DL (2.3-4.7)
[2023-05-08 05:04] LABS: CREATININE SERUM 0.86 MG/DL (0.60-1.30)
[2023-05-08 05:07] LABS: MAGNESIUM 1.4 MG/DL (1.6-2.4)
[2023-05-08] MEDS: NS + KCL 20 MEQ/L 1000 ML 1,000 ML IV SCH ×3 (06:01→18:00)
--- NOTE | 2023-05-08 07:29 | Physical Therapy Progress Note ---
Therapy Progress Note Patient transferred to ICU due to medical status. PT will require new orders to resume skilled PT. BAKARI KLEIN PT May 08, 2023 07:29
[2023-05-08] MEDS: POTASSIUM CL 10MEQ/50ML IVPB 50 ML IV SCH ×5 (07:40→12:42)
[2023-05-08] MEDS: POTASSIUM CHLORIDE 20 MEQ TABLET PO SCH ×2 (07:40→08:23)
[2023-05-08] MEDS: MAGNESIUM 1 GM/100 ML IVPB 100 ML IV SCH ×7 (07:40→14:44)
[2023-05-08] MEDS: PANTOPRAZOLE INJECTION 40 MG VIAL IV SCH (08:23)
[2023-05-08] MEDS: SENNOSIDES 8.6 MG TABLET PO SCH (08:23)
[2023-05-08] MEDS: DOCUSATE SODIUM 100 MG CAPSULE PO SCH ×2 (08:23→21:22)
[2023-05-08] MEDS: metroNIDAZOLE 500MG/100ML IVPB 100 ML IV SCH ×2 (08:24→21:22)
[2023-05-08] MEDS: fentaNYL INJECTION 100 MCG/2 ML VIAL IV PRN ×3 (08:28→16:39)
[2023-05-08] MEDS: ONDANSETRON INJECTION 4 MG/2 ML (SDV) IV PRN ×3 (08:30→20:25)
[2023-05-08] MEDS: HYDROcodone/ACETAMINOPHEN 7.5 MG/325 MG TABLET PO PRN ×2 (09:27→15:29)
--- NOTE | 2023-05-08 09:55 | Cardiology Progress Note ---
Subjective Date Seen by Provider: May 08, 2023 Time Seen by Provider: 09:51 Subjective/Events-last exam Patient was seen at bedside, lethargic, generalized weakness Reported that she has been passing gas last night. No chest pain Focused Exam Lactate Level 05/07/23 14:20: Lactic Acid Level 0.90 Objective-Cardiology Exam Last Set of Vital Signs Vital Signs 05/07/23 05/08/23 19:10 09:00 Temp 37.3 Pulse 101 Resp 21 B/P (MAP) 115/51 (72) Pulse Ox 97 O2 Delivery Nasal Cannula O2 Flow Rate 3.00 I&O Intake and Output 05/07/23 23:59 Intake Total 1350 ml Output Total 2750 ml Balance -1400 ml Intake Oral 850 ml IV Total 500 ml Output Urine Total 2750 ml # Voids 2 General: Alert, Cooperative, Mild Distress HEENT: Atraumatic, PERRLA Neck: Supple, No JVD Lungs: Clear to Auscultation, Normal Air Movement Heart: Regular Rate, Normal S1, Normal S2 Abdomen: Other (Diminished bowel sounds) Extremities: No Clubbing, No Cyanosis Skin: No Rashes, No Breakdown Neuro: Normal Speech Psych/Mental Status: Mental Status NL, Mood NL Results Lab Laboratory Tests 05/08/23 04:34 A/P-Cardiology Admission Diagnosis Acute pulmonary embolism Incarcerated abdominal hernia Coronary artery disease Hypertension Assessment/Plan Acute pulmonary embolism, no infarction noted on CT Receiving therapeutic dose of Lovenox. Continue to monitor Status post incarcerated ventral abdominal hernia, status postrepair with mesh done on May 04, 2023 Recovering slowly Anemia, worsening H&H, maintained on Lovenox secondary to pulmonary embolism Continue to monitor and transfuse as needed Mild coronary artery disease Cardiac catheterization was done in February 2019 nonobstructive disease Hypertension, blood pressure is controlled continue to monitor History of gastric stapling in the remote past, cholecystectomy, appendectomy and Mild bilateral carotid stenosis, last ultrasound was done in November 2022 Continue to monitor Obesity, BMI 48 HOLLIE HEATON MD May 08, 2023 09:55
--- NOTE | 2023-05-08 11:03 | Progress Note ---
Subjective Subjective/Events-last exam Feeling nauseated this morning. States she passed gas and small amount of stool last night. Was off bipap most of the night. Would like to sit up if possible. Focused Exam Lactate Level 05/07/23 14:20: Lactic Acid Level 0.90 Objective Exam Last Set of Vital Signs Vital Signs Date Time Temp Pulse Resp B/P (MAP) Pulse Ox O2 Delivery O2 Flow Rate FiO2 05/08/23 10:00 93 114/58 (76) 99 Nasal Cannula 3.00 05/08/23 09:00 21 05/07/23 19:10 37.3 Capillary Refill : Less Than 3 Seconds I&O Intake and Output 05/07/23 23:59 Intake Total 1350 ml Output Total 2750 ml Balance -1400 ml Intake Oral 850 ml IV Total 500 ml Output Urine Total 2750 ml # Voids 2 General: Alert, Mild Distress (appears uncomfortable) Lungs: Clear to Auscultation Heart: Regular Rate Abdomen: Normal Bowel Sounds, Soft, Other (dressing in place with no drainage on bandage) Neuro: Normal Speech Psych/Mental Status: Mood NL Results/Procedures Lab Laboratory Tests 05/07/23 12:34: Arterial Blood pH 7.33*L, Arterial Blood Partial Pressure CO2 35, Arterial Blood Partial Pressure O2 140H, Arterial Blood HCO3 19L, Arterial Blood Total CO2 19.6L, Arterial Blood Oxygen Saturation 97, Arterial Blood Base Excess -6.6L, Blood Gas Ventilator Setting NO, Blood Gas Inspired Oxygen 3 05/07/23 14:20: Lactic Acid Level 0.90 05/08/23 04:34: White Blood Count 9.5, Red Blood Count 2.78L, Hemoglobin 8.9L, Hematocrit 28L, Mean Corpuscular Volume 99, Mean Corpuscular Hemoglobin 32, Mean Corpuscular Hemoglobin Concent 32, Red Cell Distribution Width 13.2, Platelet Count 245, Mean Platelet Volume 10.2, Immature Granulocyte % (Auto) 0, Neutrophils (%) (Auto) 70, Lymphocytes (%) (Auto) 14, Monocytes (%) (Auto) 12, Eosinophils (%) (Auto) 4, Basophils (%) (Auto) 0, Neutrophils # (Auto) 6.7, Lymphocytes # (Auto) 1.3, Monocytes # (Auto) 1.1H, Eosinophils # (Auto) 0.4H, Basophils # (Auto) 0.0, Immature Granulocyte # (Auto) 0.0, Sodium Level 141, Potassium Level 3.6, Chloride Level 112H, Carbon Dioxide Level 17L, Anion Gap 12, Blood Urea Nitrogen 12, Creatinine 0.86, Estimat Glomerular Filtration Rate 72, BUN/Creatinine Ratio 14, Glucose Level 118H, Calcium Level 8.6, Corrected Calcium 9.3, Phosphorus Level 1.9L, Magnesium Level 1.4L, Total Bilirubin 0.3, Aspartate Amino Transf (AST/SGOT) 34, Alanine Aminotransferase (ALT/SGPT) 21, Alkaline Phosphatase 85, Total Protein 6.0L, Albumin 3.1L Microbiology 05/07/23 MRSA Screen - Final, Complete MRSA not isolated 05/06/23 Blood Culture - Preliminary, Resulted 05/03/23 Urine Culture - Final, Complete Enterobacter cloacae complex Assessment/Plan Assessment/Plan (1) Incarcerated ventral hernia Status: Resolved Assessment & Plan: s/p surgical resection, appreciate Surgery recommendations. (2) Small bowel obstruction Status: Resolved Assessment & Plan: s/p resection, reports passing gas. (3) Pulmonary embolism Status: Acute Assessment & Plan: Moved to ICU on 05/07 due to respiratory distress, found to have PE, started on treatment dose enoxaparin, down to 3 lpm supplemental oxygen from bipap yesterday. Qualifiers: Qualified Codes: I26.94 - Multiple subsegmental pulmonary emboli without acute cor pulmonale (4) Essential hypertension Status: Chronic Assessment & Plan: BP controlled on home meds. (5) (HFpEF) heart failure with preserved ejection fraction Status: Chronic Assessment & Plan: Cardiology consulted, echo pending. Qualifiers: Qualified Codes: I50.32 - Chronic diastolic (congestive) heart failure (6) Anemia Status: Acute (7) Hypophosphatemia Status: Acute Assessment & Plan: Replace and follow (8) Hypomagnesemia Status: Acute Assessment & Plan: Replace and follow (9) Hyperchloremic metabolic acidosis Status: Acute Assessment & Plan: Anticipate improvement when able to take oral adequately. MENDY IYER MD May 08, 2023 11:03
--- NOTE | 2023-05-08 11:48 | Physical Therapy Evaluation ---
PT Evaluation-General Medical Diagnosis Admission Date May 03, 2023 at 21:57 Medical Diagnosis: Hernia repair small bowel obstruction repair Onset Date: May 05, 2023 Therapy Diagnosis Therapy Diagnosis: generalized weakness/debility Height/Weight Height (Feet): 5 Height (Inches): 5.00 Weight (Pounds): 211 Weight (Ounces): 5.0 Precautions Precautions/Isolations: Fall Prevention, Standard Precautions Referral Physician: Dieudonne Reason for Referral: Evaluation/Treatment Medical History Pertinent Medical History: HTN Current History s/p hernia repair Reviewed History: Yes Social History Home: Apartment Current Living Status: Alone Entry Into Home: Level Entry Prior Prior Level of Function SCALE: Activities may be completed with or without assistive devices. 4-Bsdjaveymx-ngbyglu completes the activity by him/herself with no assistance from a helper. 5-Set-up or Clean-up Assistance-helper sets up or cleans up; patient completes activity. [place] assists only prior to or following the activity. 4-Supervision or Touching Assistance-helper provides verbal cues and/or touching/steadying and/or contact guard assistance as patient completes ac tivity. Assistance may be provided throughout the activity or intermittently. 3-Partial/Moderate Assistance-helper does LESS THAN HALF the effort. [place] lifts, holds or supports trunk or limbs, but provides less than half the effort. 2-Substantial/Maximal Assistance-helper does MORE THAN HALF the effort. [place] lifts or holds trunk or limbs and provides more than half the effort. 6-Rruwqyvpd-cqpwdz does ALL the effort. Patient does none of the effort to complete the activity. Or, the assistance of 2 or more helpers is required for the patient to complete the activity. If activity was not attempted, code reason: 7-Patient Refused. 9-Not Applicable-not attempted and the patient did not perform the activity before the current illness, exacerbation or injury. 10-Not Attempted due to Environmental Limitations-(lack of equipment, weather restraints, etc.). 88-Not Attempted due to Medical Conditions or Safety Concerns. Bed Mobility: 6 Transfers (B,C,W/C): 6 Gait: 6 Indoor Mobility (Ambulation): Independent Prior Devices Use: Other-see list below Prior Device Use: single point cane PT Evaluation-Current Subjective Patient agrees to PT. Objective Patient Orientation: Normal For Age Attachments: Oxygen, Hui Catheter, IV ROM/Strength ROM Lower Extremities bilateral LE WFL Strength Lower Extremities 3+/5 grossly bilateral LE all planes Integumentary/Posture Bladder Incontinence: Hui Cath Posture WFL Neuromuscular (Tone, Coordination, Reflexes) grossly intact Sensory Vision: Functional Hearing: Functional Transfers Lying to Sitting/Side of Bed(Q: 3 Sit to Stand (QC): 3 Chair/Zxl-zx-Jqfvc Xfer(QC): 3 Gait Mode of Locomotion: Walk Anticipated Mode of Locomotion: Walk Walk 10 feet (QC): 3 Walk 50 ft with 2 Turns(QC): 88 Distance: 10' Gait Assistive Device: FWW Balance Sitting Static: Normal Sitting Dynamic: Normal Standing Static: Fair Standing Dynamic: Fair Assessment/Needs Patient will benefit from skilled PT to address functional strength and mobility to improve current LOF to safely return to home at maximum LOF. 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 Goals Solar Sales Estimator Goals PT Care Home Goals Time Frame: May 20, 2023 Roll Left & Right (QC): 6 Sit to Lying (QC): 6 Lying-Sitting on Side/Bed(QC): 6 Sit to Stand (QC): 6 Chair/Lli-rs-Ptiko Xfer(QC): 6 Toilet Transfer (QC): 6 Walk 10 feet (QC): 6 Walk 50ft with 2 Turns (QC): 6 Walk 150 ft (QC): 6 PT Plan Problem List Problem List: Activity Tolerance, Functional Strength Treatment/Plan Treatment Plan: Continue Plan of Care Treatment Plan: Bed Mobility, Education, Functional Activity Franco, Functional Strength, Gait, Safety, Therapeutic Exercise, Transfers Treatment Duration: May 20, 2023 Frequency: 6 times per week Estimated Hrs Per Day: .25 hour per day Patient and/or Family Agrees t: Yes Time Time In: 1130 Time Out: 1140 DATE: May 08, 2023 Total Billed Treatment Time: 10 Total Billed Treatment 1 visit EVModC 10 min BAKARI KLEIN PT May 08, 2023 11:48
--- NOTE | 2023-05-08 11:52 | Tele-ICU Progress Note ---
Subjective Date Seen by a Provider: May 08, 2023 Time Seen by a Provider: 11:51 Subjective/Events-last exam (Tele-ICU Physician , Progress Note ) Service provided via interactive audio and video telecommunications E-CARE system to a patient admitted to ICU bed in [facility]. Patient is seen today due to persistent need of ICU care Available chart/ vitals / labs / Images reviewed Video assessment done using teleICU camera, rest of exam as per RN Discussed with RN Events overnight : Afebrile hemodynamically stable Respiratory - I/O = Drips: Pressors- no Hospital course: (05/03) 73F admitted to floor for small bowel obstruction, incarcerated ventral hernia, UTI, MING (05/04) s/p open incarcerated ventral hernia repair w/mesh, complex layered closure of tissue (05/06) Post op SBO worse today (05/07) TX to ICU for resp. distress ?CHF, wound appears red/warm. CTA chest/abd /pelvis shows PE involving pulmonary areteries. Persistant fluid-filled dilated loops of small bowel in abd/pelvis and appears normal A/P Acute hypoxix resp failure with CHF and subsegnental PE RLL - s/p diuresis - Of BIPAP , on 3 L nc subsegnental PE RLL -small , no heart strain - on full dose of lovenox Anemia - monitor carefulluy on AC CAD - stable \\ - cards follow S/p incarcerated ventral abdominal hernia, status postrepair with mesh done on May 04, 2023 - as per sx Lines : , (Central Line Necessity Reviewed) Hui: OG: Nutrition: Analgesia: Anxiety/ delirium VTE Prophylaxis: Stress Ulcer Prophylaxis: Plans in collaboration with bedside consultants and IM MDs. Discussed with RN to reach out if any questions or concerns Case and care daily discussed on multidisciplinary rounds ( RN, PharmD, Delivery Driver/Supervisor , Respiratory Therapy, asbestos hazard abatement worker ) A total of 10 minutes of critical care time was devoted to this patient today, required to treat and/or prevent further deterioration of critical care condition ( as above ) . I am remotely monitoring this patient from another state. I am unable to do the bedside exam, and history/physical and pertinent information is taken from other notes in the computer and bedside staff. Sepsis Event Evaluation Height, Weight, BMI Height: 5'5.00" Weight: 211lbs. 5.0oz. 95.605179gi; 48.60 BMI Method:Stated Focused Exam Lactate Level 05/07/23 14:20: Lactic Acid Level 0.90 Exam Exam Patient acknowledged, consented, and participated in this virtual visit which was conducted using real time audio/video Vital Signs Date Time Temp Pulse Resp B/P (MAP) Pulse Ox O2 Delivery O2 Flow Rate FiO2 05/08/23 11:00 84 12 107/59 (75) 97 Nasal Cannula 3.00 05/08/23 10:00 93 114/58 (76) 99 Nasal Cannula 3.00 05/08/23 09:55 98 Nasal Cannula 1.00 05/08/23 09:00 101 21 115/51 (72) 97 Nasal Cannula 3.00 05/08/23 08:25 Nasal Cannula 2.00 05/08/23 08:00 98 14 117/68 (84) 98 Nasal Cannula 3.00 05/08/23 07:30 92 05/08/23 07:00 95 14 91/58 (69) 95 Nasal Cannula 3.00 05/08/23 06:31 95 Room Air 0.00 05/08/23 06:15 94 18 109/73 (91) 98 Nasal Cannula 3.00 05/08/23 06:00 99 12 108/71 (101) 97 Nasal Cannula 3.00 05/08/23 05:00 92 117/65 (83) 97 Nasal Cannula 3.00 05/08/23 04:00 94 Nasal Cannula 3.00 05/08/23 04:00 98 119/63 (89) 98 Nasal Cannula 3.00 05/08/23 03:00 99 14 125/71 (90) 96 Nasal Cannula 3.00 05/08/23 02:42 98 Nasal Cannula 2.00 05/08/23 02:00 89 14 129/68 (89) 95 Nasal Cannula 3.00 05/08/23 01:00 89 05/08/23 01:00 89 12 109/64 (87) 98 Nasal Cannula 3.00 05/08/23 00:00 101 18 123/69 (81) 97 Nasal Cannula 3.00 05/07/23 23:55 94 Nasal Cannula 3.00 05/07/23 23:00 89 14 121/67 (79) 99 Nasal Cannula 3.00 05/07/23 22:27 97 Nasal Cannula 2.00 05/07/23 22:00 96 22 121/73 (86) 99 Nasal Cannula 3.00 05/07/23 21:00 101 27 123/54 (68) 99 Nasal Cannula 3.00 05/07/23 20:06 95 Nasal Cannula 3.00 05/07/23 20:00 92 17 101/66 (75) 98 Nasal Cannula 3.00 05/07/23 19:10 37.3 05/07/23 19:00 97 05/07/23 19:00 97 106/62 (82) 97 Nasal Cannula 3.00 05/07/23 18:00 111 37 139/123 (134) 99 Nasal Cannula 3.00 05/07/23 17:00 101 125/89 (105) 100 NIV Bilevel 21.00 05/07/23 16:00 101 17 128/72 (83) 96 NIV Bilevel 21.00 05/07/23 16:00 95 Nasal Cannula 3.00 05/07/23 15:00 104 23 100 21.00 05/07/23 15:00 100 18 115/56 (74) 99 NIV Bilevel 21.00 05/07/23 14:00 96 17 95/60 (69) 98 NIV Bilevel 35.00 05/07/23 13:00 102 15 108/62 (79) 98 NIV Bilevel 35.00 05/07/23 12:41 109 05/07/23 12:34 98 27 100 25.00 I & O 05/08/23 06:59 Intake Total 1050 ml Output Total 2600 ml Balance -1550 ml Height & Weight Height: 5'5.00" Weight: 211lbs. 5.0oz. 95.992529st; 48.60 BMI Method:Stated General Appearance: WD/WN, Anxious, Chronically ill, Obese, Severe Distress HEENT: Moist Mucous Membranes; No Scleral Icterus (L), No Scleral Icterus (R) Neck: No Carotid Bruit, No JVD Respiratory: Accessory Muscle Use, Crackles, Respiratory Distress, Wheezing Cardiovascular: Regular Rate, Rhythm, Tachycardia Capillary Refill: Less Than 3 Seconds Gastrointestinal: distended, tenderness, other (wound clean/dry, erythema noted in the pannus (dependent portion of abdomen)) Extremity: No Pedal Edema; No Slow Capillary Refill Neurologic/Psychiatric: Alert Skin: Warm/Dry Results Lab Laboratory Tests 12/3/23 05:35 05/08/23 04:34 Assessment/Plan Assessment/Plan 1 DANITZA CHRISTIANSON MD May 08, 2023 11:52
[2023-05-08] MEDS: PROMETHAZINE INJ 25 MG/ML VIAL IVP PRN (11:53)
[2023-05-08] MEDS ORDERED: POTASSIUM PHOSPHATE INJ 15 MM in NS (IVPB) 250 ML 250 ML IV ONE (13:45)
--- NOTE | 2023-05-08 16:59 | Progress Note ---
Subjective Date Seen by a Provider: May 08, 2023 Time Seen by a Provider: 16:30 Subjective/Events-last exam doing ok. still has pain issues. given IV pain med and this was shortly followed by nausea. has passed some flatus however no significant volume or bowel movement. breathing better. no fever/chills. Focused Exam Lactate Level 05/07/23 14:20: Lactic Acid Level 0.90 Objective Exam Vital Signs Date Time Temp Pulse Resp B/P (MAP) Pulse Ox O2 Delivery O2 Flow Rate FiO2 05/08/23 16:22 Room Air 05/08/23 16:00 102 12 109/59 (76) 100 Nasal Cannula 3.00 05/08/23 16:00 Room Air 05/08/23 15:59 37.2 05/08/23 15:00 101 20 159/104 (122) 99 Nasal Cannula 3.00 05/08/23 14:54 100 Nasal Cannula 1.00 05/08/23 14:00 90 12 134/83 (100) 99 Nasal Cannula 3.00 05/08/23 13:00 93 16 111/74 (86) 92 Nasal Cannula 3.00 05/08/23 12:50 Nasal Cannula 2.00 05/08/23 12:03 92 05/08/23 12:00 92 14 99/58 (72) 99 Nasal Cannula 3.00 05/08/23 11:51 35.8 05/08/23 11:00 84 12 107/59 (75) 97 Nasal Cannula 3.00 05/08/23 10:00 93 114/58 (76) 99 Nasal Cannula 3.00 05/08/23 09:55 98 Nasal Cannula 1.00 05/08/23 09:00 101 21 115/51 (72) 97 Nasal Cannula 3.00 05/08/23 08:25 Nasal Cannula 2.00 05/08/23 08:00 98 14 117/68 (84) 98 Nasal Cannula 3.00 05/08/23 07:30 92 05/08/23 07:00 95 14 91/58 (69) 95 Nasal Cannula 3.00 05/08/23 06:31 95 Room Air 0.00 05/08/23 06:15 94 18 109/73 (91) 98 Nasal Cannula 3.00 05/08/23 06:00 99 12 108/71 (101) 97 Nasal Cannula 3.00 05/08/23 05:00 92 117/65 (83) 97 Nasal Cannula 3.00 05/08/23 04:00 94 Nasal Cannula 3.00 05/08/23 04:00 98 119/63 (89) 98 Nasal Cannula 3.00 05/08/23 03:00 99 14 125/71 (90) 96 Nasal Cannula 3.00 05/08/23 02:42 98 Nasal Cannula 2.00 05/08/23 02:00 89 14 129/68 (89) 95 Nasal Cannula 3.00 05/08/23 01:00 89 05/08/23 01:00 89 12 109/64 (87) 98 Nasal Cannula 3.00 05/08/23 00:00 101 18 123/69 (81) 97 Nasal Cannula 3.00 05/07/23 23:55 94 Nasal Cannula 3.00 05/07/23 23:00 89 14 121/67 (79) 99 Nasal Cannula 3.00 05/07/23 22:27 97 Nasal Cannula 2.00 05/07/23 22:00 96 22 121/73 (86) 99 Nasal Cannula 3.00 05/07/23 21:00 101 27 123/54 (68) 99 Nasal Cannula 3.00 05/07/23 20:06 95 Nasal Cannula 3.00 05/07/23 20:00 92 17 101/66 (75) 98 Nasal Cannula 3.00 05/07/23 19:10 37.3 05/07/23 19:00 97 05/07/23 19:00 97 106/62 (82) 97 Nasal Cannula 3.00 05/07/23 18:00 111 37 139/123 (134) 99 Nasal Cannula 3.00 05/07/23 17:00 101 125/89 (105) 100 NIV Bilevel 21.00 I & O 05/08/23 06:59 Intake Total 1050 ml Output Total 2600 ml Balance -1550 ml Capillary Refill : Less Than 3 Seconds General Appearance: No Apparent Distress HEENT: PERRL/EOMI Neck: Full Range of Motion Respiratory: Decreased Breath Sounds, Rhonci Cardiovascular: Regular Rate, Rhythm Gastrointestinal: soft, distended, other (incision clean/dry, abd wall edema) Extremity: Normal Capillary Refill Neurologic/Psychiatric: Alert, Oriented x3 Skin: Normal Color Lymphatic: No Adenopathy Results Lab Laboratory Tests 05/08/23 04:34: White Blood Count 9.5, Red Blood Count 2.78L, Hemoglobin 8.9L, Hematocrit 28L, Mean Corpuscular Volume 99, Mean Corpuscular Hemoglobin 32, Mean Corpuscular Hemoglobin Concent 32, Red Cell Distribution Width 13.2, Platelet Count 245, Mean Platelet Volume 10.2, Immature Granulocyte % (Auto) 0, Neutrophils (%) (Auto) 70, Lymphocytes (%) (Auto) 14, Monocytes (%) (Auto) 12, Eosinophils (%) (Auto) 4, Basophils (%) (Auto) 0, Neutrophils # (Auto) 6.7, Lymphocytes # (Auto) 1.3, Monocytes # (Auto) 1.1H, Eosinophils # (Auto) 0.4H, Basophils # (Auto) 0.0, Immature Granulocyte # (Auto) 0.0, Sodium Level 141, Potassium Level 3.6, Ch loride Level 112H, Carbon Dioxide Level 17L, Anion Gap 12, Blood Urea Nitrogen 12, Creatinine 0.86, Estimat Glomerular Filtration Rate 72, BUN/Creatinine Ratio 14, Glucose Level 118H, Calcium Level 8.6, Corrected Calcium 9.3, Phosphorus Level 1.9L, Magnesium Level 1.4L, Total Bilirubin 0.3, Aspartate Amino Transf (AST/SGOT) 34, Alanine Aminotransferase (ALT/SGPT) 21, Alkaline Phosphatase 85, Total Protein 6.0L, Albumin 3.1L Microbiology 05/07/23 Blood Culture - Preliminary, Resulted 05/07/23 MRSA Screen - Final, Complete MRSA not isolated 05/03/23 Urine Culture - Final, Complete Enterobacter cloacae complex Assessment/Plan Assessment/Plan Assess & Plan/Chief Complaint s/p open repair incarcerated ventral abdominal incisional hernia repair with mesh. consult hospitalist. consult PT. increase ambulation and IS. small subsegmental right lower lobe PE. currently on therapeutic lovenox. likely has ileus. cont clears for now. will add starting dose reglan. LES JUÁREZ MD May 08, 2023 16:58
[2023-05-08] MEDS ORDERED: FUROSEMIDE INJECTION 40 MG/4 ML VIAL IVP NR (17:15)
[2023-05-08] MEDS: METOCLOPRAMIDE INJ 10 MG/2 ML IVP SCH (18:03)
[2023-05-08 19:19] VITALS: BP 113/59
[2023-05-09] MEDS: METOCLOPRAMIDE INJ 10 MG/2 ML IVP SCH ×5 (01:12→23:58)
[2023-05-09] MEDS: HYDROmorphone INJECTION 2 MG/ML VIAL IVP PRN ×7 (01:12→19:07)
[2023-05-09] MEDS: ENOXAPARIN 100 MG/1 ML SYRINGE SC SCH ×2 (01:12→12:08)
[2023-05-09] MEDS: CEFEPIME 1,000 MG/NS 50 ML IVPB IV SCH ×8 (02:46→20:02)
[2023-05-09 04:37] LABS: BASOPHILS % (AUTO) 0 % (0-10); EOSINOPHILS # (AUTO) 0.6 10^3/uL (0.0-0.3); EOSINOPHILS % (AUTO) 7 % (0-10); HEMATOCRIT 27 % (35-52); HEMOGLOBIN 8.7 g/dL (11.5-16.0); LYMPHOCYTES # (AUTO) 1.6 10^3/uL (1.0-4.0); LYMPHOCYTES % (AUTO) 19 % (12-44); MEAN CORPUSCULAR HEMOGLOBIN 32 pg (25-34); MEAN CORPUSCULAR HGB CONC 33 g/dL (32-36); MEAN CORPUSCULAR VOLUME 98 fL (80-99); MEAN PLATELET VOLUME 10.1 fL (9.0-12.2); MONOCYTES % (AUTO) 12 % (0-12); NEUTROPHILS # (AUTO) 5.2 10^3/uL (1.8-7.8); NEUTROPHILS % (AUTO) 62 % (42-75); PLATELET COUNT 270 10^3/uL (130-400); WHITE BLOOD COUNT 8.4 10^3/uL (4.3-11.0)
[2023-05-09] MEDS: NS + KCL 20 MEQ/L 1000 ML 1,000 ML IV SCH ×3 (04:39→19:45)
[2023-05-09 04:47] LABS: POTASSIUM 3.7 MMOL/L (3.6-5.0)
[2023-05-09 04:48] LABS: CALCIUM 8.6 MG/DL (8.5-10.1)
[2023-05-09 04:49] LABS: TOTAL PROTEIN 6.1 GM/DL (6.4-8.2)
[2023-05-09 04:51] LABS: BILIRUBIN,TOTAL 0.4 MG/DL (0.1-1.0)
[2023-05-09 04:53] LABS: CREATININE SERUM 0.76 MG/DL (0.60-1.30)
[2023-05-09] MEDS: POTASSIUM CL 10MEQ/50ML IVPB 50 ML IV SCH ×3 (04:55→06:22)
[2023-05-09] MEDS: POTASSIUM CHLORIDE 20 MEQ TABLET PO SCH ×2 (04:55→08:27)
[2023-05-09] MEDS: MAGNESIUM 1 GM/100 ML IVPB 100 ML IV SCH (05:02)
[2023-05-09] MEDS: NS IV 500 ML 500 ML IV PRN (05:27)
--- NOTE | 2023-05-09 08:03 | Progress Note ---
Subjective Subjective/Events-last exam Seen at 1035. States feeling okay. Pain is bothering her and she still has some dry heaves at times, but is keeping down liquids and states she has had a BM. She is hoping to get up and move more today. Has been weaned to room air. Focused Exam Lactate Level 05/07/23 14:20: Lactic Acid Level 0.90 Objective Exam Last Set of Vital Signs Vital Signs Date Time Temp Pulse Resp B/P (MAP) Pulse Ox O2 Delivery O2 Flow Rate FiO2 05/09/23 07:00 89 05/09/23 06:00 11 106/85 (95) 95 Room Air 05/09/23 04:07 36.9 05/08/23 21:12 0.00 05/08/23 19:19 21 Capillary Refill : Less Than 3 Seconds I&O Intake and Output 05/08/23 23:59 Intake Total 2680 ml Output Total 1800 ml Balance 880 ml Intake Oral 1275 ml IV Total 1405 ml Output Urine Total 1800 ml General: Alert Lungs: Clear to Auscultation Heart: Regular Rate Abdomen: Normal Bowel Sounds, Soft, Other (dressing in place with no drainage) Extremities: Other (trace edema) Psych/Mental Status: Mood NL Results/Procedures Lab Laboratory Tests 05/09/23 04:12: White Blood Count 8.4, Red Blood Count 2.73L, Hemoglobin 8.7L, Hematocrit 27L, Mean Corpuscular Volume 98, Mean Corpuscular Hemoglobin 32, Mean Corpuscular He moglobin Concent 33, Red Cell Distribution Width 13.4, Platelet Count 270, Mean Platelet Volume 10.1, Immature Granulocyte % (Auto) 0, Neutrophils (%) (Auto) 62, Lymphocytes (%) (Auto) 19, Monocytes (%) (Auto) 12, Eosinophils (%) (Auto) 7, Basophils (%) (Auto) 0, Neutrophils # (Auto) 5.2, Lymphocytes # (Auto) 1.6, Monocytes # (Auto) 1.0, Eosinophils # (Auto) 0.6H, Basophils # (Auto) 0.0, Immature Granulocyte # (Auto) 0.0, Sodium Level 139, Potassium Level 3.7, Chloride Level 110H, Carbon Dioxide Level 21, Anion Gap 8, Blood Urea Nitrogen 8, Creatinine 0.76, Estimat Glomerular Filtration Rate 84, BUN/Creatinine Ratio 11, Glucose Level 117H, Calcium Level 8.6, Corrected Calcium 9.4, Phosphorus Level 2.0L, Magnesium Level 2.2, Total Bilirubin 0.4, Aspartate Amino Transf (AST/SGOT) 28, Alanine Aminotransferase (ALT/SGPT) 20, Alkaline Phosphatase 77, Total Protein 6.1L, Albumin 3.0L Microbiology 05/07/23 Blood Culture - Preliminary, Resulted 05/07/23 MRSA Screen - Final, Complete MRSA not isolated 05/03/23 Urine Culture - Final, Complete Enterobacter cloacae complex Assessment/Plan Assessment/Plan (1) Incarcerated ventral hernia Status: Resolved Assessment & Plan: s/p surgical resection, appreciate Surgery recommendations. (2) Small bowel obstruction Status: Resolved Assessment & Plan: s/p resection, reports passing gas and stool. (3) Pulmonary embolism Status: Acute Assessment & Plan: Moved to ICU on 05/07 due to respiratory distress, found to have PE, started on treatment dose enoxaparin, now weaned to room air, will transfer to med/surg Qualifiers: Qualified Codes: I26.94 - Multiple subsegmental pulmonary emboli without acute cor pulmonale (4) Essential hypertension Status: Chronic Assessment & Plan: BP controlled on home meds. (5) (HFpEF) heart failure with preserved ejection fraction Status: Chronic Assessment & Plan: Cardiology consulted, echo results pending. Qualifiers: Qualified Codes: I50.32 - Chronic diastolic (congestive) heart failure (6) Anemia Status: Acute Assessment & Plan: Suspect anemia related to surgery, acute illness and blood draws. Stable, monitor. Qualifiers: Qualified Codes: D62 - Acute posthemorrhagic anemia (7) Hypophosphatemia Status: Acute Assessment & Plan: Replace and follow (8) Hypomagnesemia Status: Acute Assessment & Plan: Replace and follow (9) Hyperchloremic metabolic acidosis Status: Acute Assessment & Plan: Anticipate improvement when able to take oral adequately. MENDY IYER MD May 09, 2023 08:03
[2023-05-09] MEDS: PANTOPRAZOLE INJECTION 40 MG VIAL IV SCH (08:27)
[2023-05-09] MEDS: SENNOSIDES 8.6 MG TABLET PO SCH (08:27)
[2023-05-09] MEDS ORDERED: POTASSIUM PHOSPHATE INJ 15 MM in NS (IVPB) 250 ML 250 ML IV ONE (08:30)
[2023-05-09] MEDS: metroNIDAZOLE 500MG/100ML IVPB 100 ML IV SCH ×2 (08:36→20:02)
--- NOTE | 2023-05-09 08:41 | Cardiology Progress Note ---
Subjective Date Seen by Provider: May 09, 2023 Time Seen by Provider: 08:39 Subjective/Events-last exam Patient was seen at bedside, lethargic, distended abdomen Focused Exam Lactate Level 05/07/23 14:20: Lactic Acid Level 0.90 Objective-Cardiology Exam Last Set of Vital Signs Vital Signs 05/08/23 05/09/23 05/09/23 05/09/23 19:19 04:07 06:00 07:00 Temp 36.9 Pulse 89 Resp 11 B/P (MAP) 106/85 (95) Pulse Ox 95 O2 Delivery Room Air FiO2 21 I&O Intake and Output 05/08/23 23:59 Intake Total 2680 ml Output Total 1800 ml Balance 880 ml Intake Oral 1275 ml IV Total 1405 ml Output Urine Total 1800 ml General: Alert, Cooperative, Mild Distress (appears uncomfortable) HEENT: Atraumatic, PERRLA Neck: Supple, No JVD Lungs: Clear to Auscultation Heart: Regular Rate, Normal S1, Normal S2 Abdomen: Normal Bowel Sounds, Soft, Other (dressing in place with no drainage on bandage) Extremities: No Clubbing, No Cyanosis Skin: No Rashes, No Breakdown Neuro: Normal Speech Psych/Mental Status: Mood NL Results Lab Laboratory Tests 05/09/23 04:12 A/P-Cardiology Admission Diagnosis Acute pulmonary embolism Incarcerated abdominal hernia Coronary artery disease Hypertension Assessment/Plan Acute pulmonary embolism, no infarction noted on CT Receiving therapeutic dose of Lovenox. Continue to monitor Status post incarcerated ventral abdominal hernia, status postrepair with mesh done on May 04, 2023 Recovering slowly, diminished bowel sounds today No bowel movement Managed by surgical team Anemia, worsening H&H, maintained on Lovenox secondary to pulmonary embolism Continue to monitor and transfuse as needed Mild coronary artery disease Cardiac catheterization was done in February 2019 nonobstructive disease Hypertension, blood pressure is controlled continue to monitor History of gastric stapling in the remote past, cholecystectomy, appendectomy and Mild bilateral carotid stenosis, last ultrasound was done in November 2022 Continue to monitor Obesity, BMI 48 HOLLIE HEATON MD May 09, 2023 08:41
[2023-05-09] MEDS: DOCUSATE SODIUM 100 MG CAPSULE PO SCH ×2 (08:42→19:59)
[2023-05-09] MEDS: HYDROcodone/ACETAMINOPHEN 7.5 MG/325 MG TABLET PO PRN ×2 (09:39→15:53)
[2023-05-09] MEDS: RT-Ipratropium/Albuterol NEB 3 ML VIAL INH SCH ×2 (10:16→19:19)
[2023-05-09] MEDS: fentaNYL INJECTION 100 MCG/2 ML VIAL IV PRN ×3 (11:04→17:38)
--- NOTE | 2023-05-09 13:58 | Progress Note ---
Subjective Date Seen by a Provider: May 09, 2023 Time Seen by a Provider: 13:00 Subjective/Events-last exam doing better today. still can hear wheezing due to anasarca. still does not report bowel movement however no nausea and tolerating clears. no fever/chills. Focused Exam Lactate Level 05/07/23 14:20: Lactic Acid Level 0.90 Objective Exam Vital Signs Date Time Temp Pulse Resp B/P (MAP) Pulse Ox O2 Delivery O2 Flow Rate FiO2 05/09/23 12:55 104 05/09/23 12:00 85 20 129/104 (112) 99 Room Air 05/09/23 09:00 91 18 126/65 (85) 98 Room Air 05/09/23 08:46 36.2 05/09/23 08:44 Room Air 05/09/23 08:00 95 18 126/67 (86) 97 Room Air 05/09/23 07:00 89 05/09/23 07:00 89 16 108/65 (79) 97 Room Air 05/09/23 06:00 89 11 106/85 (95) 95 Room Air 05/09/23 05:00 93 32 123/62 (91) 96 Room Air 05/09/23 04:07 36.9 05/09/23 04:00 90 15 113/69 (87) 97 Room Air 05/09/23 04:00 Room Air 05/09/23 03:00 93 11 114/65 (77) 96 Room Air 05/09/23 02:00 94 26 125/67 (87) 96 Room Air 05/09/23 01:00 85 11 154/92 (121) 98 Room Air 05/09/23 01:00 95 05/09/23 00:00 89 125/75 (87) 96 Room Air 05/08/23 23:59 Room Air 05/08/23 23:00 90 30 121/76 (86) 96 Room Air 05/08/23 22:00 99 28 113/71 (88) 97 Room Air 05/08/23 21:32 Room Air 05/08/23 21:12 98 Nasal Cannula 0.00 05/08/23 21:12 96 15 127/78 (99) 99 NIV Bilevel 21.00 05/08/23 20:25 NIV Bilevel 21.00 05/08/23 20:08 36.7 Room Air 05/08/23 20:00 Room Air 05/08/23 20:00 93 111/58 (84) 98 Room Air 05/08/23 19:19 37.2 93 98 21 05/08/23 19:00 93 14 103/64 (76) 98 Room Air 05/08/23 19:00 93 05/08/23 18:00 93 21 113/59 (77) 98 Room Air 05/08/23 17:00 95 21 113/59 (77) 98 Room Air 05/08/23 16:22 Room Air 05/08/23 16:00 102 12 109/59 (76) 100 Nasal Cannula 3.00 05/08/23 16:00 Room Air 05/08/23 15:59 37.2 05/08/23 15:00 101 20 159/104 (122) 99 Nasal Cannula 3.00 05/08/23 14:54 100 Nasal Cannula 1.00 05/08/23 14:00 90 12 134/83 (100) 99 Nasal Cannula 3.00 I & O0 05/09/23 06:59 Intake Total 2730 ml Output Total 1600 ml Balance 1130 ml Capillary Refill : Less Than 3 Seconds General Appearance: No Apparent Distress HEENT: PERRL/EOMI Neck: Full Range of Motion Respiratory: Chest Non Tender, Rhonci, Wheezing Cardiovascular: Regular Rate, Rhythm Gastrointestinal: soft, distended, tenderness, other (incision clean/dry) Extremity: Normal Capillary Refill Neurologic/Psychiatric: Alert, Oriented x3 Skin: Normal Color Lymphatic: No Adenopathy Results Lab Laboratory Tests 05/09/23 04:12: White Blood Count 8.4, Red Blood Count 2.73L, Hemoglobin 8.7L, Hematocrit 27L, Mean Corpuscular Volume 98, Mean Corpuscular Hemoglobin 32, Mean Corpuscular Hemoglobin Concent 33, Red Cell Distribution Width 13.4, Platelet Count 270, Mean Platelet Volume 10.1, Immature Granulocyte % (Auto) 0, Neutrophils (%) (Auto) 62, Lymphocytes (%) (Auto) 19, Monocytes (%) (Auto) 12, Eosinophils (%) (Auto) 7, Basophils (%) (Auto) 0, Neutrophils # (Auto) 5.2, Lymphocytes # (Auto) 1.6, Monocytes # (Auto) 1.0, Eosinophils # (Auto) 0.6H, Basophils # (Auto) 0.0, Immature Granulocyte # (Auto) 0.0, Sodium Level 139, Potassium Level 3.7, Chlor jm Level 110H, Carbon Dioxide Level 21, Anion Gap 8, Blood Urea Nitrogen 8, Creatinine 0.76, Estimat Glomerular Filtration Rate 84, BUN/Creatinine Ratio 11, Glucose Level 117H, Calcium Level 8.6, Corrected Calcium 9.4, Phosphorus Level 2.0L, Magnesium Level 2.2, Total Bilirubin 0.4, Aspartate Amino Transf (AST/SGOT) 28, Alanine Aminotransferase (ALT/SGPT) 20, Alkaline Phosphatase 77, Total Protein 6.1L, Albumin 3.0L Microbiology 05/07/23 Blood Culture - Preliminary, Resulted 05/07/23 MRSA Screen - Final, Complete MRSA not isolated 05/03/23 Urine Culture - Final, Complete Enterobacter cloacae complex Assessment/Plan Assessment/Plan Assess & Plan/Chief Complaint s/p open repair incarcerated ventral abdominal incisional hernia repair with mesh. consult hospitalist. consult PT. increase ambulation and IS. small subsegmental right lower lobe PE. currently on therapeutic lovenox. likely has ileus. cont clears for now. will add starting dose reglan. will also start daily lasix as long as renal fxn stable and no hypokalemia. LES JUÁREZ MD May 09, 2023 13:58
--- NOTE | 2023-05-09 14:27 | Physical Therapy Daily Note ---
PT Daily Note-Current Subjective Patient agrees to up to recliner Pain Section J - Health Conditions 1. Rarely or not at all 2. Occasionally 3. Frequently 4. Almost constantly 8. Unable to answer Pain Effect on Sleep: 1 Pain Interference with Therapy: 1 Pain Interference w/Day-to-Day: 1 Transfers SCALE: Activities may be completed with or without assistive devices. 7-Gkqtapqgei-rgbwnhf completes the activity by him/herself with no assistance from a helper. 5-Set-up or Clean-up Assistance-helper sets up or cleans up; patient completes activity. [place] assists only prior to or following the activity. 4-Supervision or Touching Assistance-helper provides verbal cues and/or touching/steadying and/or contact guard assistance as patient completes activity. Assistance may be provided throughout the activity or intermittently. 3-Partial/Moderate Assistance-helper does LESS THAN HALF the effort. [place] lifts, holds or supports trunk or limbs, but provides less than half the effort. 2-Substantial/Maximal Assistance-helper does MORE THAN HALF the effort. [place] lifts or holds trunk or limbs and provides more than half the effort. 8-Qiemktfii-vtbyek does ALL the effort. Patient does none of the effort to complete the activity. Or, the assistance of 2 or more helpers is required for the patient to complete the activity. If activity was not attempted, code reason: 7-Patient Refused. 9-Not Applicable-not attempted and the patient did not perform the activity before the current illness, exacerbation or injury. 10-Not Attempted due to Environmental Limitations-(lack of equipment, weather restraints, etc.). 88-Not Attempted due to Medical Conditions or Safety Concerns. Lying to Sitting/Side of Bed(Q: 3 Sit to Stand (QC): 4 Chair/Fcn-dk-Uckym Xfer(QC): 4 Gait Training Distance: 10' Walk 10 feet (QC): 4 Gait Assistive Device: FWW Assessment Patient has noted SOA with at rest and with minimal activity with SAO2 >90% RA. RN present due to patient removed IV. Pt to increase activity as tolerated by patient. PT Nursing Home Goals Store Custodian Goals PT Nursing Home Goals Time Frame: May 20, 2023 Roll Left & Right (QC): 6 Sit to Lying (QC): 6 Lying-Sitting on Side/Bed(QC): 6 Sit to Stand (QC): 6 Chair/Lic-ub-Jvpzv Xfer(QC): 6 Toilet Transfer (QC): 6 Walk 10 feet (QC): 6 Walk 50ft with 2 Turns (QC): 6 Walk 150 ft (QC): 6 PT Plan Treatment/Plan Treatment Plan: Continue Plan of Care Treatment Plan: Bed Mobility, Education, Functional Activity Franco, Functional Strength, Gait, Safety, Therapeutic Exercise, Transfers Treatment Duration: May 20, 2023 Frequency: 6 times per week Estimated Hrs Per Day: .25 hour per day Patient and/or Family Agrees t: Yes Time Time In: 1330 Time Out: 1340 DATE: May 09, 2023 Total Billed Treatment Time: 10 Total Billed Treatment 1 visit FA 10 min BAKARI KLEIN PT May 09, 2023 14:27
[2023-05-09] MEDS: FUROSEMIDE INJECTION 40 MG/4 ML VIAL IVP SCH (15:53)
[2023-05-09 19:05] VITALS: BP 134/75
[2023-05-10] VITALS (7 sets, daily range): BP systolic 113–139; BP diastolic 64–82
[2023-05-10] MEDS: HYDROcodone/ACETAMINOPHEN 7.5 MG/325 MG TABLET PO PRN ×4 (00:06→20:17)
[2023-05-10] MEDS: fentaNYL INJECTION 100 MCG/2 ML VIAL IV PRN ×5 (00:07→22:13)
[2023-05-10] MEDS: NS + KCL 20 MEQ/L 1000 ML 1,000 ML IV SCH ×3 (02:25→17:41)
[2023-05-10] MEDS: CEFEPIME 1,000 MG/NS 50 ML IVPB IV SCH ×8 (02:30→20:16)
[2023-05-10] MEDS: ONDANSETRON INJECTION 4 MG/2 ML (SDV) IV PRN ×5 (02:30→23:57)
[2023-05-10] MEDS: METOCLOPRAMIDE INJ 10 MG/2 ML IVP SCH ×4 (05:50→23:57)
[2023-05-10 06:14] LABS: BASOPHILS % (AUTO) 0 % (0-10); EOSINOPHILS # (AUTO) 0.6 10^3/uL (0.0-0.3); EOSINOPHILS % (AUTO) 6 % (0-10); HEMATOCRIT 29 % (35-52); HEMOGLOBIN 9.4 g/dL (11.5-16.0); LYMPHOCYTES # (AUTO) 1.9 10^3/uL (1.0-4.0); LYMPHOCYTES % (AUTO) 18 % (12-44); MEAN CORPUSCULAR HEMOGLOBIN 33 pg (25-34); MEAN CORPUSCULAR HGB CONC 33 g/dL (32-36); MEAN CORPUSCULAR VOLUME 100 fL (80-99); MEAN PLATELET VOLUME 10.6 fL (9.0-12.2); MONOCYTES # (AUTO) 1.3 10^3/uL (0.0-1.0); MONOCYTES % (AUTO) 13 % (0-12); NEUTROPHILS # (AUTO) 6.5 10^3/uL (1.8-7.8); NEUTROPHILS % (AUTO) 63 % (42-75); PLATELET COUNT 304 10^3/uL (130-400); WHITE BLOOD COUNT 10.3 10^3/uL (4.3-11.0)
[2023-05-10 06:25] LABS: ALBUMIN 3.2 GM/DL (3.2-4.5); POTASSIUM 3.8 MMOL/L (3.6-5.0)
[2023-05-10 06:26] LABS: CALCIUM 8.5 MG/DL (8.5-10.1)
[2023-05-10 06:27] LABS: TOTAL PROTEIN 6.3 GM/DL (6.4-8.2)
[2023-05-10 06:29] LABS: BILIRUBIN,TOTAL 0.3 MG/DL (0.1-1.0)
[2023-05-10 06:31] LABS: CREATININE SERUM 0.74 MG/DL (0.60-1.30)
--- NOTE | 2023-05-10 08:29 | Progress Note ---
Subjective Subjective/Events-last exam Pt sitting up in chair, states feeling okay but does have more abdominal pain after eating this morning, still getting nauseated and vomiting bile at times. Today states she hasn't had BM but is passing gas. Focused Exam Lactate Level 05/07/23 14:20: Lactic Acid Level 0.90 Objective Exam Last Set of Vital Signs Vital Signs Date Time Temp Pulse Resp B/P (MAP) Pulse Ox O2 Delivery O2 Flow Rate FiO2 05/10/23 07:54 36.4 98 16 139/82 (101) 100 Nasal Cannula 5.00 05/08/23 19:19 21 Capillary Refill : Less Than 3 Seconds I&O Intake and Output 05/09/23 23:59 Intake Total 1755 ml Output Total 850 ml Balance 905 ml Intake Oral 1100 ml IV Total 655 ml Output Urine Total 850 ml General: Alert Lungs: Clear to Auscultation Heart: Regular Rate Abdomen: Normal Bowel Sounds, Other (distended, mild ttp) Extremities: Other (trace to 1+ edema) Psych/Mental Status: Mood NL Results/Procedures Lab Laboratory Tests 05/10/23 05:35: White Blood Count 10.3, Red Blood Count 2.87L, Hemoglobin 9.4L, Hematocrit 29L, Mean Corpuscular Volume 100H, Mean Corpuscular Hemoglobin 33, Mean Corpuscular Hemoglobin Concent 33, Red Cell Distribution Width 13.3, Platelet Count 304, Mean Platelet Volume 10.6, Immature Granulocyte % (Auto) 1, Neutrophils (%) (Auto) 63, Lymphocytes (%) (Auto) 18, Monocytes (%) (Auto) 13H, Eosinophils (%) (Auto) 6, Basophils (%) (Auto) 0, Neutrophils # (Auto) 6.5, Lymphocytes # (Auto) 1.9, Monocytes # (Auto) 1.3H, Eosinophils # (Auto) 0.6H, Basophils # (Auto) 0.0, Immature Granulocyte # (Auto) 0.1, Sodium Level 139, Potassium Level 3.8, Chloride Level 111H, Carbon Dioxide Level 20L, Anion Gap 8, Blood Urea Nitrogen 8, Creatinine 0.74, Estimat Glomerular Filtration Rate 86, BUN/Creatinine Ratio 11, Glucose Level 108H, Calcium Level 8.5, Corrected Calcium 9.1, Total Bilirubin 0.3, Aspartate Amino Transf (AST/SGOT) 31, Alanine Aminotransferase (ALT/SGPT) 21, Alkaline Phosphatase 82, Total Protein 6.3L, Albumin 3.2 Microbiology 05/07/23 Blood Culture - Preliminary, Resulted 05/07/23 MRSA Screen - Final, Complete MRSA not isolated 05/03/23 Urine Culture - Final, Complete Enterobacter cloacae complex Assessment/Plan Assessment/Plan (1) Incarcerated ventral hernia Status: Resolved Assessment & Plan: s/p surgical resection, appreciate Surgery recommendations. (2) Small bowel obstruction Status: Resolved Assessment & Plan: s/p resection, reports passing gas (3) Pulmonary embolism Status: Acute Assessment & Plan: Moved to ICU on 05/07 due to respiratory distress, found to have PE, started on treatment dose enoxaparin, now weaned to room air, transferred to med/surg Qualifiers: Qualified Codes: I26.94 - Multiple subsegmental pulmonary emboli without acute cor pulmonale (4) Essential hypertension Status: Chronic Assessment & Plan: BP controlled on home meds. (5) (HFpEF) heart failure with preserved ejection fraction Status: Chronic Assessment & Plan: Cardiology consulted, echo EF 55-65%, mild mitral regurg, mild aortic stenosis, mild LA dilation Qualifiers: Qualified Codes: I50.32 - Chronic diastolic (congestive) heart failure (6) Anemia Status: Acute Assessment & Plan: Suspect anemia related to surgery, acute illness and blood draws. Stable, monitor. Qualifiers: Qualified Codes: D62 - Acute posthemorrhagic anemia (7) Hypophosphatemia Status: Acute Assessment & Plan: Replace and follow (8) Hypomagnesemia Status: Acute Assessment & Plan: Replace and follow (9) Hyperchloremic metabolic acidosis Status: Acute Assessment & Plan: Anticipate improvement when able to take oral adequately. MENDY IYER MD May 10, 2023 08:29
[2023-05-10] MEDS: POTASSIUM CHLORIDE 20 MEQ TABLET PO SCH (08:39)
[2023-05-10] MEDS: FUROSEMIDE INJECTION 40 MG/4 ML VIAL IVP SCH (08:39)
[2023-05-10] MEDS: PANTOPRAZOLE INJECTION 40 MG VIAL IV SCH (08:39)
[2023-05-10] MEDS: SENNOSIDES 8.6 MG TABLET PO SCH (08:39)
[2023-05-10] MEDS: DOCUSATE SODIUM 100 MG CAPSULE PO SCH ×2 (08:39→20:16)
--- NOTE | 2023-05-10 09:13 | Cardiology Progress Note ---
Subjective Date Seen by Provider: May 10, 2023 Time Seen by Provider: 08:10 Subjective/Events-last exam Patient is sitting up in chair, complaining of some abdominal pain after eating breakfast. Denies any chest pain, states dyspnea has improved. Focused Exam Lactate Level 05/07/23 14:20: Lactic Acid Level 0.90 Objective-Cardiology Exam Last Set of Vital Signs Vital Signs 05/08/23 05/10/23 19:19 11:36 Temp 36.5 Pulse 88 Resp 17 B/P (MAP) 137/79 (98) Pulse Ox 100 O2 Delivery Nasal Cannula O2 Flow Rate 5.00 FiO2 21 I&O Intake and Output 05/09/23 23:59 Intake Total 1755 ml Output Total 850 ml Balance 905 ml Intake Oral 1100 ml IV Total 655 ml Output Urine Total 850 ml General: Alert HEENT: Atraumatic, PERRLA Neck: Supple, No JVD Lungs: Clear to Auscultation Heart: Regular Rate, Normal S1, Normal S2 Abdomen: Soft, Other (dressing in place with no drainage, diminished bowel sounds) Extremities: Other (trace edema) Skin: No Rashes, No Breakdown Neuro: Normal Speech Psych/Mental Status: Mood NL Results Lab Laboratory Tests 05/10/23 05:35 A/P-Cardiology Admission Diagnosis Acute pulmonary embolism Incarcerated abdominal hernia Coronary artery disease Hypertension Assessment/Plan Status post acute pulmonary embolism, no infarction noted on CT Receiving therapeutic dose of Lovenox. Continue to monitor Status post incarcerated ventral abdominal hernia, status postrepair with mesh done on May 04, 2023 Recovering slowly, diminished bowel sounds today No bowel movement Managed by surgical team Anemia, continue to monitor H&H, maintained on Lovenox secondary to pulmonary embolism Continue to monitor and transfuse as needed Mild coronary artery disease Cardiac catheterization was done in February 2019 nonobstructive disease Hypertension, blood pressure is controlled continue to monitor History of gastric stapling in the remote past, cholecystectomy, appendectomy and Mild bilateral carotid stenosis, last ultrasound was done in November 2022 Continue to monitor Obesity, BMI 48 Supervisory-Addendum Brief Supervisory Addendum Participated in pt care: history, MDM, physical Personally performed: exam, history, MDM Care discussed with: SHASHI Results interpretation: Verified all documentation Notes: Patient was seen and evaluated with Jenelle, examination performed, management plan was discussed, agree with the current scribed note, I made few changes to the note using Italic font Patient was seen at bedside, feeling better, more arousable today, responding appropriately Reporting passing gas, no bowel movement Diminished bowel sounds Once clinically stable I recommend starting Eliquis and continuing on Eliquis as an outpatient Monitor heart rate and blood pressure JENELLE PANIAGUA PA-C May 10, 2023 09:13 HOLLIE HEATON MD May 10, 2023 12:18
[2023-05-10] MEDS: HYDROmorphone INJECTION 2 MG/ML VIAL IVP PRN ×3 (11:18→23:57)
[2023-05-10] MEDS: ENOXAPARIN 100 MG/1 ML SYRINGE SC SCH ×3 (12:54→23:57)
--- NOTE | 2023-05-10 16:16 | Physical Therapy Daily Note ---
PT Daily Note-Current Subjective Patient lying supine in bed upon PT arrival, agreeable to treatment. Patient rates pain at 0/10 currently. Pain Section J - Health Conditions 1. Rarely or not at all 2. Occasionally 3. Frequently 4. Almost constantly 8. Unable to answer Pain Effect on Sleep: 1 Pain Interference with Therapy: 1 Pain Interference w/Day-to-Day: 1 Transfers SCALE: Activities may be completed with or without assistive devices. 4-Ikqcwqcxkg-ypbpqoh completes the activity by him/herself with no assistance from a helper. 5-Set-up or Clean-up Assistance-helper sets up or cleans up; patient completes activity. [place] assists only prior to or following the activity. 4-Supervision or Touching Assistance-helper provides verbal cues and/or touching/steadying and/or contact guard assistance as patient completes activity. Assistance may be provided throughout the activity or intermittently. 3-Partial/Moderate Assistance-helper does LESS THAN HALF the effort. [place] lif ts, holds or supports trunk or limbs, but provides less than half the effort. 2-Substantial/Maximal Assistance-helper does MORE THAN HALF the effort. [place] lifts or holds trunk or limbs and provides more than half the effort. 0-Qbrbwebxs-wkhdnh does ALL the effort. Patient does none of the effort to complete the activity. Or, the assistance of 2 or more helpers is required for the patient to complete the activity. If activity was not attempted, code reason: 7-Patient Refused. 9-Not Applicable-not attempted and the patient did not perform the activity before the current illness, exacerbation or injury. 10-Not Attempted due to Environmental Limitations-(lack of equipment, weather restraints, etc.). 88-Not Attempted due to Medical Conditions or Safety Concerns. Roll Left & Right (QC): 4 Sit to Lying (QC): 4 Lying to Sitting/Side of Bed(Q: 4 Sit to Stand (QC): 4 Chair/Xro-fw-Xxulz Xfer(QC): 4 Gait Training Does the Patient Walk?: Yes Distance: 40' Walk 10 feet (QC): 4 Gait Assistive Device: FWW Assessment Current Status: Fair Progress Patient performs all observed bed mobility and transfers with SBA/CGA. Patient ambulates 40 feet with FWW, with CGA and verbal cues for safety, progression and posture. Patient in chair post treatment with all needs met, nursing notified, call light in hand. PT Chcf Goals Chcf Goals PT Chcf Goals Time Frame: May 20, 2023 Roll Left & Right (QC): 6 Sit to Lying (QC): 6 Lying-Sitting on Side/Bed(QC): 6 Sit to Stand (QC): 6 Chair/Pzr-it-Ffdcq Xfer(QC): 6 Toilet Transfer (QC): 6 Walk 10 feet (QC): 6 Walk 50ft with 2 Turns (QC): 6 Walk 150 ft (QC): 6 PT Plan Treatment/Plan Treatment Plan: Continue Plan of Care Treatment Plan: Bed Mobility, Education, Functional Activity Franco, Functional Strength, Gait, Safety, Therapeutic Exercise, Transfers Treatment Duration: May 20, 2023 Frequency: 6 times per week Estimated Hrs Per Day: .25 hour per day Patient and/or Family Agrees t: Yes Time Time In: 1125 Time Out: 1140 DATE: May 10, 2023 Total Billed Treatment Time: 15 Total Billed Treatment Visit, GT GILDARDO SCHULER PT May 10, 2023 16:16
[2023-05-10] MEDS: RT-Ipratropium/Albuterol NEB 3 ML VIAL INH SCH ×2 (17:10→19:38)
--- NOTE | 2023-05-10 17:52 | Progress Note ---
Subjective Date Seen by a Provider: May 10, 2023 Time Seen by a Provider: 17:00 Subjective/Events-last exam doing ok. having some flatus. abd pain controlled. ambulating better. no fever/chills. Objective Exam Vital Signs Date Time Temp Pulse Resp B/P (MAP) Pulse Ox O2 Delivery O2 Flow Rate FiO2 05/10/23 15:45 36.6 99 18 127/74 (91) 98 Room Air 05/10/23 13:00 115 05/10/23 11:36 36.5 88 17 137/79 (98) 100 Nasal Cannula 5.00 05/10/23 08:00 100 Nasal Cannula 5.00 05/10/23 07:54 36.4 98 16 139/82 (101) 100 Nasal Cannula 5.00 05/10/23 07:00 103 05/10/23 03:11 36.2 90 16 127/79 (95) 98 NIV Bilevel 05/10/23 03:04 91 21 98 35.00 05/10/23 00:07 36.2 99 23 134/80 (98) 100 Nasal Cannula 6.00 6.00 05/10/23 00:00 98 05/09/23 21:23 35.00 05/09/23 20:09 100 23 98 30.00 05/09/23 20:00 Nasal Cannula 6.00 05/09/23 19:20 100 Nasal Cannula 6.00 05/09/23 19:13 106 05/09/23 19:05 36.5 109 20 134/75 (94) 100 Nasal Cannula 6.00 I & O 05/10/23 06:59 Intake Total 1655 ml Output Total 800 ml Balance 855 ml Capillary Refill : Less Than 3 Seconds General Appearance: No Apparent Distress HEENT: PERRL/EOMI Neck: Full Range of Motion Respiratory: Chest Non Tender, Rhonci, Wheezing Cardiovascular: Regular Rate, Rhythm Gastrointestinal: soft, distended, other (inc clean/dry) Extremity: Normal Capillary Refill Neurologic/Psychiatric: Alert, Oriented x3 Skin: Normal Color Lymphatic: No Adenopathy Results Lab Laboratory Tests 05/10/23 05:35: White Blood Count 10.3, Red Blood Count 2.87L, Hemoglobin 9.4L, Hematocrit 29L, Mean Corpuscular Volume 100H, Mean Corpuscular Hemoglobin 33, Mean Corpuscular Hemoglobin Concent 33, Red Cell Distribution Width 13.3, Platelet Count 304, Mean Platelet Volume 10.6, Immature Granulocyte % (Auto) 1, Neutrophils (%) (Auto) 63, Lymphocytes (%) (Auto) 18, Monocytes (%) (Auto) 13H, Eosinophils (%) (Auto) 6, Basophils (%) (Auto) 0, Neutrophils # (Auto) 6.5, Lymphocytes # (Auto) 1.9, Monocytes # (Auto) 1.3H, Eosinophils # (Auto) 0.6H, Basophils # (Auto) 0.0, Immature Granulocyte # (Auto) 0.1, Sodium Level 139, Potassium Level 3.8, Chloride Level 111H, Carbon Dioxide Level 20L, Anion Gap 8, Blood Urea Nitrogen 8, Creatinine 0.74, Estimat Glomerular Filtration Rate 86, BUN/Creatinine Ratio 11, Glucose Level 108H, Calcium Level 8.5, Corrected Calcium 9.1, Total Bilirubin 0.3, Aspartate Amino Transf (AST/SGOT) 31, Alanine Aminotransferase (ALT/SGPT) 21, Alkaline Phosphatase 82, Total Protein 6.3L, Albumin 3.2 Microbiology 05/07/23 Blood Culture - Preliminary, Resulted 05/07/23 MRSA Screen - Final, Complete MRSA not isolated 05/03/23 Urine Culture - Final, Complete Enterobacter cloacae complex Assessment/Plan Assessment/Plan Assess & Plan/Chief Complaint s/p open repair incarcerated ventral abdominal incisional hernia repair with mesh. consult hospitalist. consult PT. increase ambulation and IS. small subsegmental right lower lobe PE. currently on therapeutic lovenox. likely has ileus. cont clears for now. will add starting dose reglan. will also start daily lasix as long as renal fxn stable and no hypokalemia. LES JUÁREZ MD May 10, 2023 17:52
[2023-05-11 03:26] VITALS: BP 121/73
[2023-05-11] MEDS: fentaNYL INJECTION 100 MCG/2 ML VIAL IV PRN (03:31)
[2023-05-11] MEDS: CEFEPIME 1,000 MG/NS 50 ML IVPB IV SCH ×8 (03:31→20:17)
[2023-05-11] MEDS: NS + KCL 20 MEQ/L 1000 ML 1,000 ML IV SCH ×3 (04:17→20:06)
[2023-05-11] MEDS: ONDANSETRON INJECTION 4 MG/2 ML (SDV) IV PRN (05:32)
[2023-05-11] MEDS: METOCLOPRAMIDE INJ 10 MG/2 ML IVP SCH ×3 (05:32→17:37)
[2023-05-11] MEDS: HYDROcodone/ACETAMINOPHEN 7.5 MG/325 MG TABLET PO PRN ×4 (05:33→20:17)
[2023-05-11 05:37] LABS: BASOPHILS % (AUTO) 0 % (0-10); EOSINOPHILS # (AUTO) 0.6 10^3/uL (0.0-0.3); EOSINOPHILS % (AUTO) 5 % (0-10); HEMATOCRIT 28 % (35-52); HEMOGLOBIN 9.2 g/dL (11.5-16.0); LYMPHOCYTES # (AUTO) 2.1 10^3/uL (1.0-4.0); LYMPHOCYTES % (AUTO) 20 % (12-44); MEAN CORPUSCULAR HEMOGLOBIN 32 pg (25-34); MEAN CORPUSCULAR HGB CONC 33 g/dL (32-36); MEAN CORPUSCULAR VOLUME 98 fL (80-99); MEAN PLATELET VOLUME 10.7 fL (9.0-12.2); MONOCYTES # (AUTO) 1.1 10^3/uL (0.0-1.0); MONOCYTES % (AUTO) 11 % (0-12); NEUTROPHILS # (AUTO) 6.9 10^3/uL (1.8-7.8); NEUTROPHILS % (AUTO) 64 % (42-75); PLATELET COUNT 401 10^3/uL (130-400); WHITE BLOOD COUNT 10.8 10^3/uL (4.3-11.0)
[2023-05-11 05:45] LABS: ALBUMIN 3.3 GM/DL (3.2-4.5); POTASSIUM 3.9 MMOL/L (3.6-5.0)
[2023-05-11 05:46] LABS: CALCIUM 8.7 MG/DL (8.5-10.1)
[2023-05-11 05:48] LABS: TOTAL PROTEIN 6.3 GM/DL (6.4-8.2)
[2023-05-11 05:49] LABS: BILIRUBIN,TOTAL 0.4 MG/DL (0.1-1.0)
[2023-05-11 05:51] LABS: CREATININE SERUM 0.75 MG/DL (0.60-1.30); PHOSPHORUS 1.6 MG/DL (2.3-4.7)
[2023-05-11 05:55] LABS: MAGNESIUM 1.7 MG/DL (1.6-2.4)
[2023-05-11] MEDS: RT-Ipratropium/Albuterol NEB 3 ML VIAL INH SCH ×2 (07:50→20:05)
[2023-05-11 08:00] VITALS: BP 116/59
[2023-05-11] MEDS ORDERED: POTASSIUM PHOSPHATE INJ 30 MM in NS (IVPB) 250 ML 250 ML IV ONE (08:00)
--- NOTE | 2023-05-11 08:15 | Cardiology Progress Note ---
Subjective Date Seen by Provider: May 11, 2023 Time Seen by Provider: 08:14 Subjective/Events-last exam Patient was seen at bedside, sitting comfortably, reporting that she has been passing gas but no bowel movement yet Objective-Cardiology Exam Last Set of Vital Signs Vital Signs 05/08/23 05/11/23 05/11/23 05/11/23 19:19 03:26 07:00 07:50 Temp 36.4 Pulse 78 Resp 20 B/P (MAP) 121/73 (89) Pulse Ox 96 O2 Delivery Room Air O2 Flow Rate 0.00 FiO2 21 I&O Intake and Output 05/10/23 23:59 Intake Total 2200 ml Output Total 1000 ml Balance 1200 ml Intake Oral 2100 ml IV Total 100 ml Output Urine Total 1000 ml # Voids 4 General: Alert, Oriented X3, Cooperative HEENT: Atraumatic, PERRLA Neck: Supple, No JVD Lungs: Clear to Auscultation Heart: Regular Rate, Normal S1, Normal S2 Abdomen: Soft, Other (dressing in place with no drainage, diminished bowel sounds) Extremities: No Clubbing, No Cyanosis, Other (trace to 1+ edema) Skin: No Rashes, No Breakdown Neuro: Normal Speech Psych/Mental Status: Mental Status NL, Mood NL Results Lab Laboratory Tests 05/11/23 05:03 A/P-Cardiology Admission Diagnosis Acute pulmonary embolism Incarcerated abdominal hernia Coronary artery disease Hypertension Assessment/Plan Status post acute pulmonary embolism, no infarction noted on CT Receiving therapeutic dose of Lovenox. Continue to monitor Status post incarcerated ventral abdominal hernia, status postrepair with mesh done on May 04, 2023 Recovering slowly, diminished bowel sounds today No bowel movement, passing gas Managed by surgical team Anemia, continue to monitor H&H, maintained on Lovenox secondary to pulmonary embolism Continue to monitor and transfuse as needed Mild coronary artery disease Cardiac catheterization was done in February 2019 nonobstructive disease Hypertension, blood pressure is controlled continue to monitor History of gastric stapling in the remote past, cholecystectomy, appendectomy and Mild bilateral carotid stenosis, last ultrasound was done in November 2022 Continue to monitor Obesity, BMI 48 HOLLIE HEATON MD May 11, 2023 08:15
[2023-05-11 08:48] VITALS: BP 116/59
[2023-05-11] MEDS: PANTOPRAZOLE INJECTION 40 MG VIAL IV SCH (09:09)
[2023-05-11] MEDS: FUROSEMIDE INJECTION 40 MG/4 ML VIAL IVP SCH (09:09)
[2023-05-11] MEDS: SENNOSIDES 8.6 MG TABLET PO SCH (09:09)
[2023-05-11] MEDS: DOCUSATE SODIUM 100 MG CAPSULE PO SCH ×2 (09:10→20:16)
[2023-05-11] MEDS: POTASSIUM CHLORIDE 20 MEQ TABLET PO SCH (09:10)
--- NOTE | 2023-05-11 09:47 | Progress Note ---
Subjective Subjective/Events-last exam Patient states she is feeling significantly better, had a bowel movement. Wanting to eat some solid food. Is off of supplemental oxygen today. Objective Exam Last Set of Vital Signs Vital Signs Date Time Temp Pulse Resp B/P (MAP) Pulse Ox O2 Delivery O2 Flow Rate FiO2 05/11/23 08:48 36.3 92 96 21 05/11/23 08:00 20 116/59 (78) Room Air 05/11/23 07:50 0.00 Capillary Refill : Less Than 3 Seconds I&O Intake and Output 05/10/23 23:59 Intake Total 2200 ml Output Total 1000 ml Balance 1200 ml Intake Oral 2100 ml IV Total 100 ml Output Urine Total 1000 ml # Voids 4 General: Alert, No Acute Distress Lungs: Clear to Auscultation, Normal Air Movement Heart: Regular Rate Abdomen: Normal Bowel Sounds, Soft, Other (mild diffuse ttp) Extremities: Other (1+ pitting edema) Psych/Mental Status: Mood NL Results/Procedures Lab Laboratory Tests 05/11/23 05:03: White Blood Count 10.8, Red Blood Count 2.87L, Hemoglobin 9.2L, Hematocrit 28L, Mean Corpuscular Volume 98, Mean Corpuscular Hemoglobin 32, Mean Corpuscular Hemoglobin Concent 33, Red Cell Distribution Width 13.3, Platelet Count 401H, Mean Platelet Volume 10.7, Immature Granulocyte % (Auto) 1, Neutrophils (%) (Auto) 64, Lymphocytes (%) (Auto) 20, Monocytes (%) (Auto) 11, Eosinophils (%) (Auto) 5, Basophils (%) (Auto) 0, Neutrophils # (Auto) 6.9, Lymphocytes # (Auto) 2.1, Monocytes # (Auto) 1.1H, Eosinophils # (Auto) 0.6H, Basophils # (Auto) 0.0, Immature Granulocyte # (Auto) 0.1, Sodium Level 139, Potassium Level 3.9, Chloride Level 109H, Carbon Dioxide Level 21, Anion Gap 9, Blood Urea Nitrogen 6L, Creatinine 0.75, Estimat Glomerular Filtration Rate 85, BUN/Creatinine Ratio 8, Glucose Level 106H, Calcium Level 8.7, Corrected Calcium 9.3, Phosphorus Level 1.6L, Magnesium Level 1.7, Total Bilirubin 0.4, Aspartate Amino Transf (AST/SGOT) 44H, Alanine Aminotransferase (ALT/SGPT) 23, Alkaline Phosphatase 82, Total Protein 6.3L, Albumin 3.3 Microbiology 05/07/23 Blood Culture - Preliminary, Resulted 05/07/23 MRSA Screen - Final, Complete MRSA not isolated 05/03/23 Urine Culture - Final, Complete Enterobacter cloacae complex Assessment/Plan Assessment/Plan (1) Incarcerated ventral hernia Status: Resolved Assessment & Plan: s/p surgical resection, appreciate Surgery recommendations. (2) Small bowel obstruction Status: Resolved Assessment & Plan: s/p resection, reports passing gas (3) Pulmonary embolism Status: Acute Assessment & Plan: Moved to ICU on 05/07 due to respiratory distress, found to have PE, started on treatment dose enoxaparin, now weaned to room air, transferred to med/surg 05/11 start Eliquis and stop enoxaparin Qualifiers: Qualified Codes: I26.94 - Multiple subsegmental pulmonary emboli without acute cor pulmonale (4) Essential hypertension Status: Chronic Assessment & Plan: BP controlled on home meds. (5) (HFpEF) heart failure with preserved ejection fraction Status: Chronic Assessment & Plan: Cardiology consulted, echo EF 55-65%, mild mitral regurg, mild aortic stenosis, mild LA dilation Qualifiers: Qualified Codes: I50.32 - Chronic diastolic (congestive) heart failure (6) Anemia Status: Acute Assessment & Plan: Suspect anemia related to surgery, acute illness and blood draws. Stable, monitor. Qualifiers: Qualified Codes: D62 - Acute posthemorrhagic anemia (7) Hypophosphatemia Status: Acute Assessment & Plan: Replace and follow (8) Hypomagnesemia Status: Acute Assessment & Plan: Replace and follow (9) Hyperchloremic metabolic acidosis Status: Acute Assessment & Plan: Anticipate improvement when able to take oral adequately. MENDY IYER MD May 11, 2023 09:47
--- NOTE | 2023-05-11 11:52 | Physical Therapy Daily Note ---
PT Daily Note-Current Subjective Patient agrees to therapy. Pain Section J - Health Conditions 1. Rarely or not at all 2. Occasionally 3. Frequently 4. Almost constantly 8. Unable to answer Pain Effect on Sleep: 1 Pain Interference with Therapy: 1 Pain Interference w/Day-to-Day: 1 Transfers SCALE: Activities may be completed with or without assistive devices. 7-Ahlqvycswn-ozcyacx completes the activity by him/herself with no assistance from a helper. 5-Set-up or Clean-up Assistance-helper sets up or cleans up; patient completes activity. [place] assists only prior to or following the activity. 4-Supervision or Touching Assistance-helper provides verbal cues and/or touching/steadying and/or contact guard assistance as patient completes activity. Assistance may be provided throughout the activity or intermittently. 3-Partial/Moderate Assistance-helper does LESS THAN HALF the effort. [place] lifts, holds or supports trunk or limbs, but provides less than half the effort. 2-Substantial/Maximal Assistance-helper does MORE THAN HALF the effort. [place] lifts or holds trunk or limbs and provides more than half the effort. 9-Akpgfajuj-rgjvui does ALL the effort. Patient does none of the effort to complete the activity. Or, the assistance of 2 or more helpers is required for the patient to complete the activity. If activity was not attempted, code reason: 7-Patient Refused. 9-Not Applicable-not attempted and the patient did not perform the activity before the current illness, exacerbation or injury. 10-Not Attempted due to Environmental Limitations-(lack of equipment, weather restraints, etc.). 88-Not Attempted due to Medical Conditions or Safety Concerns. Sit to Stand (QC): 6 Gait Training Distance: 300' Walk 10 feet (QC): 6 Walk 50 ft with 2 Turns(QC): 6 Walk 150 ft (QC): 6 Gait Assistive Device: FWW safe and functional with no deviation Assessment Patient is currently at OF with all gross motor skills safely and does not require continued skilled PT intervention. PT to dismiss patient from services at this time. PT Aligning Inspector Goals Aligning Inspector Goals PT Detention Goals Time Frame: May 20, 2023 Roll Left & Right (QC): 6 Sit to Lying (QC): 6 Lying-Sitting on Side/Bed(QC): 6 Sit to Stand (QC): 6 Chair/Hwc-ll-Issaj Xfer(QC): 6 Toilet Transfer (QC): 6 Walk 10 feet (QC): 6 Walk 50ft with 2 Turns (QC): 6 Walk 150 ft (QC): 6 PT Plan Treatment/Plan Treatment Plan: Discontinue PT Treatment Plan: Bed Mobility, Education, Functional Activity Franco, Functional Strength, Gait, Safety, Therapeutic Exercise, Transfers Treatment Duration: May 20, 2023 Frequency: 6 times per week Estimated Hrs Per Day: .25 hour per day Patient and/or Family Agrees t: Yes Time Time In: 1020 Time Out: 1030 DATE: May 11, 2023 Total Billed Treatment Time: 10 Total Billed Treatment 1 visit FA 10 min BAKARI KLEIN PT May 11, 2023 11:52
--- NOTE | 2023-05-11 11:59 | Occupational Ther Daily Note ---
OT Current Status-Daily Note Subjective Agreeable to participate in therapy, education provided for footwear in hospital.Patient reports she uses Tools for LB dressing at home Mental Status/Objective Patient Orientation: Person, Place, Time, Situation ADL-Treatment Therapy Code Descriptions/Definitions Functional [place] Measure: 0=Not Assessed/NA 4=Minimal Assistance 1=Total Assistance 5=Supervision or Setup 2=Maximal Assistance 6=Modified [place] 3=Moderate Assistance 7=Complete IndependenceSCALE: Activities may be completed with or without assistive devices. 0-Brdrsnfvir-brtlaiy completes the activity by him/herself with no assistance from a helper. 5-Set-up or Clean-up Assistance-helper sets up or cleans up; patient completes activity. [place] assists only prior to or following the activity. 4-Supervision or Touching Assistance-helper provides verbal cues and/or touching/steadying and/or contact guard assistance as patient completes activit y. Assistance may be provided throughout the activity or intermittently. 3-Partial/Moderate Assistance-helper does LESS THAN HALF the effort. [place] lifts, holds or supports trunk or limbs, but provides less than half the effort. 2-Substantial/Maximal Assistance-helper does MORE THAN HALF the effort. [place] lifts or holds trunk or limbs and provides more than half the effort. 7-Bfncogkov-lsrzoq does ALL the effort. Patient does none of the effort to complete the activity. Or, the assistance of 2 or more helpers is required for the patient to complete the activity. If activity was not attempted, code reason: 7-Patient Refused. 9-Not Applicable-not attempted and the patient did not perform the activity before the current illness, exacerbation or injury. 10-Not Attempted due to Environmental Limitations-(lack of equipment, weather restraints, etc.). 88-Not Attempted due to Medical Conditions or Safety Concerns. Eating (QC): 6 Oral Hygiene (QC): 6 Shower/Bathe Self (QC): 7 Upper Body Dressing (QC): 6 Lower Body Dressing (QC): 6 On/Off Footwear: 5 (w/ tools) Toileting Hygiene (QC): 6 Toilet Transfer (QC): 6 Education OT Patient Education: Correct positioning, Modified ADL techniques, Progress toward Goal/Update tx plan, Purpose of tx/functional activities, Reviewed precautions, Rehab process, Safety issues, Transfer techniques, Use of adapted equipment Teaching Recipient: Patient Teaching Methods: Demonstration, Discussion Response to Teaching: Return Demonstration OT Shelter Goals Shelter Goals 1=Demonstrate adherence to instructed precautions during ADL tasks. 2=Patient will verbalize/demonstrate understanding of assistive devices/modifications for ADL. 3=Patient will improve strength/tolerance for activity to enable patient to perform ADL's. OT Education/Plan Problem List/Assessment Assessment: Decreased Activ Tolerance, Impaired Self-Care Skills Discharge Recommendations Plan/Recommendations: Discontinue OT Treatment Plan/Plan of Care Treatment,Training & Education: Yes Patient would benefit from OT for education, treatment and training to promote independence in ADL's, mobility, safety and/or upper extremity function for ADL's. Plan of Care: Group Exercise/Act as Ind Treatment Duration: May 11, 2023 (DC OT) Frequency: 1 time per week (DC) Estimated Hrs Per Day: .25 hour per day Agreement: Yes Rehab Potential: Fair Time Start Time: 10:30 Stop Time: 10:49 DATE: May 11, 2023 Total Time Billed (hr/min): 19 Billed Treatment Time ADL 19 min INOCENTE SOUZA OT May 11, 2023 11:59
[2023-05-11 12:11] VITALS: BP 134/60
[2023-05-11] MEDS ORDERED: ENOXAPARIN 120 MG/0.8 ML SYRINGE SC SCH (13:00)
[2023-05-11 15:21] VITALS: BP 119/56
--- NOTE | 2023-05-11 17:53 | Progress Note ---
Subjective Date Seen by a Provider: May 11, 2023 Time Seen by a Provider: 18:00 Subjective/Events-last exam doing slowly better everyday. having some bowel fxn. tolerating diet. ambulating well. pain mostly controlled. Objective Exam Vital Signs Date Time Temp Pulse Resp B/P (MAP) Pulse Ox O2 Delivery O2 Flow Rate FiO2 05/11/23 15:21 36.8 98 16 119/56 (77) 95 Room Air 05/11/23 12:35 99 05/11/23 12:11 36.7 99 20 134/60 (84) 98 Room Air 05/11/23 08:48 36.3 92 96 21 05/11/23 08:00 36.3 96 20 116/59 (78) 95 Room Air 05/11/23 08:00 Room Air 05/11/23 07:50 96 Room Air 0.00 05/11/23 07:00 78 05/11/23 03:26 36.4 105 20 121/73 (89) 99 Nasal Cannula 3.00 05/11/23 01:04 91 05/10/23 23:28 36.3 85 18 126/77 (93) 98 Nasal Cannula 3.00 05/10/23 20:16 36.5 96 18 113/64 (80) 96 Nasal Cannula 5.00 05/10/23 20:00 Nasal Cannula 5.00 05/10/23 19:39 97 Nasal Cannula 5.00 05/10/23 19:32 96 I & O 05/11/23 06:59 Intake Total 2250 ml Output Total 700 ml Balance 1550 ml Capillary Refill : Less Than 3 Seconds General Appearance: No Apparent Distress HEENT: PERRL/EOMI Neck: Full Range of Motion Respiratory: Chest Non Tender, Decreased Breath Sounds, Rhonci, Wheezing Cardiovascular: Regular Rate, Rhythm Gastrointestinal: soft, tenderness, other (inc clean/dry) Extremity: Normal Capillary Refill Neurologic/Psychiatric: Alert, Oriented x3 Skin: Normal Color Lymphatic: No Adenopathy Results Lab Laboratory Tests 05/11/23 05:03: White Blood Count 10.8, Red Blood Count 2.87L, Hemoglobin 9.2L, Hematocrit 28L, Mean Corpuscular Volume 98, Mean Corpuscular Hemoglobin 32, Mean Corpuscular Hemoglobin Concent 33, Red Cell Distribution Width 13.3, Platelet Count 401H, Mean Platelet Volume 10.7, Immature Granulocyte % (Auto) 1, Neutrophils (%) (Auto) 64, Lymphocytes (%) (Auto) 20, Monocytes (%) (Auto) 11, Eosinophils (%) (Auto) 5, Basophils (%) (Auto) 0, Neutrophils # (Auto) 6.9, Lymphocytes # (Auto) 2.1, Monocytes # (Auto) 1.1H, Eosinophils # (Auto) 0.6H, Basophils # (Auto) 0.0, Immature Granulocyte # (Auto) 0.1, Sodium Level 139, Potassium Level 3.9, Chloride Level 109H, Carbon Dioxide Level 21, Anion Gap 9, Blood Urea Nitrogen 6L, Creatinine 0.75, Estimat Glomerular Filtration Rate 85, BUN/Creatinine Ratio 8, Glucose Level 106H, Calcium Level 8.7, Corrected Calcium 9.3, Phosphorus Level 1.6L, Magnesium Level 1.7, Total Bilirubin 0.4, Aspartate Amino Transf (AST/SGOT) 44H, Alanine Aminotransferase (ALT/SGPT) 23, Alkaline Phosphatase 82, Total Protein 6.3L, Albumin 3.3 Microbiology 05/07/23 Blood Culture - Preliminary, Resulted 05/07/23 MRSA Screen - Final, Complete MRSA not isolated 05/03/23 Urine Culture - Final, Complete Enterobacter cloacae complex Assessment/Plan Assessment/Plan Assess & Plan/Chief Complaint s/p open repair incarcerated ventral abdominal incisional hernia repair with mesh. consult hospitalist. consult PT/OT increase ambulation and IS. small subsegmental right lower lobe PE. currently on therapeutic lovenox. likely has ileus. cont clears for now. will add starting dose reglan. slowly resolving and will advance diet as tolerated. will also start daily lasix as long as renal fxn stable and no hypokalemia. LES JUÁREZ MD May 11, 2023 17:53
[2023-05-11 20:10] VITALS: BP 114/75
[2023-05-11] MEDS: APIXABAN 5 MG TABLET PO SCH (20:16)
[2023-05-12] VITALS: BP 122/54
[2023-05-12] MEDS: METOCLOPRAMIDE INJ 10 MG/2 ML IVP SCH ×3 (00:37→13:27)
[2023-05-12] MEDS: HYDROcodone/ACETAMINOPHEN 7.5 MG/325 MG TABLET PO PRN ×2 (00:37→05:00)
[2023-05-12] MEDS: CEFEPIME 1,000 MG/NS 50 ML IVPB IV SCH ×4 (03:44→08:38)
[2023-05-12] MEDS: NS + KCL 20 MEQ/L 1000 ML 1,000 ML IV SCH ×2 (03:47→13:27)
[2023-05-12 04:00] VITALS: BP 117/58
[2023-05-12 06:41] LABS: BASOPHILS % (AUTO) 0 % (0-10); EOSINOPHILS # (AUTO) 0.5 10^3/uL (0.0-0.3); EOSINOPHILS % (AUTO) 4 % (0-10); HEMATOCRIT 26 % (35-52); HEMOGLOBIN 8.4 g/dL (11.5-16.0); LYMPHOCYTES # (AUTO) 1.9 10^3/uL (1.0-4.0); LYMPHOCYTES % (AUTO) 18 % (12-44); MEAN CORPUSCULAR HEMOGLOBIN 32 pg (25-34); MEAN CORPUSCULAR HGB CONC 33 g/dL (32-36); MEAN CORPUSCULAR VOLUME 97 fL (80-99); MONOCYTES # (AUTO) 1.3 10^3/uL (0.0-1.0); MONOCYTES % (AUTO) 12 % (0-12); NEUTROPHILS # (AUTO) 6.7 10^3/uL (1.8-7.8); NEUTROPHILS % (AUTO) 64 % (42-75); PLATELET COUNT 386 10^3/uL (130-400); WHITE BLOOD COUNT 10.6 10^3/uL (4.3-11.0)
[2023-05-12 06:57] LABS: ALBUMIN 3.1 GM/DL (3.2-4.5); BILIRUBIN,TOTAL 0.4 MG/DL (0.1-1.0); CREATININE SERUM 0.7 MG/DL (0.60-1.30); PHOSPHORUS 1.9 MG/DL (2.3-4.7); POTASSIUM 3.7 MMOL/L (3.6-5.0); TOTAL PROTEIN 5.6 GM/DL (6.4-8.2)
[2023-05-12] MEDS: RT-Ipratropium/Albuterol NEB 3 ML VIAL INH SCH (07:49)
[2023-05-12] MEDS ORDERED: APIX5TAB PO (08:23)
[2023-05-12 08:25] VITALS: BP 110/52
[2023-05-12] MEDS: SENNOSIDES 8.6 MG TABLET PO SCH (08:38)
[2023-05-12] MEDS: FUROSEMIDE INJECTION 40 MG/4 ML VIAL IVP SCH (08:38)
[2023-05-12] MEDS: PANTOPRAZOLE INJECTION 40 MG VIAL IV SCH (08:38)
[2023-05-12] MEDS: ACETAMINOPHEN 325 MG TABLET PO PRN (08:39)
[2023-05-12] MEDS: POTASSIUM CHLORIDE 20 MEQ TABLET PO SCH (08:39)
[2023-05-12] MEDS: DOCUSATE SODIUM 100 MG CAPSULE PO SCH (08:39)
[2023-05-12] MEDS: APIXABAN 5 MG TABLET PO SCH (08:41)
--- NOTE | 2023-05-12 09:23 | Cardiology Progress Note ---
Subjective Date Seen by Provider: May 12, 2023 Time Seen by Provider: 09:22 Subjective/Events-last exam Patient was seen at bedside, sitting in a chair, comfortable. No new complaint Had bowel movement Objective-Cardiology Exam Last Set of Vital Signs Vital Signs 05/11/23 05/12/23 05/12/23 08:48 07:50 08:25 Temp 36.5 Pulse 109 Resp 20 B/P (MAP) 110/52 (71) Pulse Ox 99 O2 Delivery Room Air O2 Flow Rate 0.00 FiO2 21 I&O Intake and Output 05/12/23 00:00 Intake Total 2780 ml Balance 2780 ml Intake Oral 2520 ml IV Total 260 ml # Voids 10 # Bowel Movements 5 General: Alert, No Acute Distress HEENT: Atraumatic, PERRLA Neck: Supple, No JVD Lungs: Clear to Auscultation, Normal Air Movement Heart: Regular Rate, Normal S1, Normal S2 Abdomen: Normal Bowel Sounds, Soft Extremities: No Clubbing, No Cyanosis, Other (1+ pitting edema) Skin: No Rashes, No Breakdown Neuro: Normal Speech Psych/Mental Status: Mood NL Results Lab Laboratory Tests 05/12/23 06:00 A/P-Cardiology Admission Diagnosis Acute pulmonary embolism Incarcerated abdominal hernia Coronary artery disease Hypertension Assessment/Plan Status post acute pulmonary embolism, no infarction noted on CT Receiving therapeutic dose of Lovenox. Continue to monitor Status post incarcerated ventral abdominal hernia, status postrepair with mesh done on May 04, 2023 Recovering slowly, diminished bowel sounds today No bowel movement, passing gas Managed by surgical team Anemia, continue to monitor H&H, maintained on Lovenox secondary to pulmonary embolism Continue to monitor and transfuse as needed Mild coronary artery disease Cardiac catheterization was done in February 2019 nonobstructive disease Hypertension, blood pressure is controlled continue to monitor History of gastric stapling in the remote past, cholecystectomy, appendectomy and Mild bilateral carotid stenosis, last ultrasound was done in November 2022 Continue to monitor Obesity, BMI 48 HOLLIE HEATON MD May 12, 2023 09:23
--- NOTE | 2023-05-12 11:05 | D/C HH Face to Face Order ---
D/C Face to Face Orders Instructions for Patient Via [facility], Patient Instructions/FollowUp: follow up with primary care provider within 1 week. Physician to follow Patient: Mica Portillo APRN Discharge Diet for Home: Regular Diet Patient Data-Allergies,Ht & Wt Patient Allergies: Coded Allergies: No Known Drug Allergies (Unverified , 01/09/15) Height (Feet): 5 Height (Inches): 5.00 Weight (Pounds): 211 Weight (Ounces): 5.0 Home Health Need/Face to Face Date of Face to Face: May 12, 2023 Clinical Findings: Generalized weakness and fatigue I have seen Pt [id number]: Yes Discharged To: Home Diagnosis/Conditions: Incarcerated Hernia, PE Patient is Homebound due to: Muscle weakness Homebound Status Due to the above stated illness, injury or surgical procedure (medical condition or diagnosis) and associated clinical findings, the patient is homebound because of his/her inability to leave home except with aid of a supportive device and/or person AND leaving the home requires a considerable and taxing effort or is medically contraindicated. Pt req the following assistanc: [facility] Nursing Orders Home Health Services Order: Nursing Services, Physical Therapy-Evaluate & Treat Home Health Infusion Therapy Line Start Date: May 09, 2023 Certify Stmt I certify that this patient is under my care and that I, a nurse practitioner or a physician; a sound assistant working with me, had a face to face encounter that - meets the physician face to face encounter requirements with this patient as dated. ANDRÉS LENTZ MD May 12, 2023 11:05
--- NOTE | 2023-05-12 12:50 | Progress Note ---
Subjective Date Seen by a Provider: May 12, 2023 Time Seen by a Provider: 12:00 Subjective/Events-last exam doing well. having BM's and tolerating reg diet. pain controlled. Objective Exam Vital Signs Date Time Temp Pulse Resp B/P (MAP) Pulse Ox O2 Delivery O2 Flow Rate FiO2 05/12/23 08:56 Room Air 05/12/23 08:25 36.5 109 20 110/52 (71) 99 Room Air 05/12/23 07:50 98 Room Air 0.00 05/12/23 07:00 93 05/12/23 04:00 36.3 91 18 117/58 (77) 95 Room Air 05/12/23 00:20 88 05/12/23 00:00 36.5 95 18 122/54 (76) 97 Room Air 05/11/23 20:10 36.1 98 16 114/75 (88) 97 Room Air 05/11/23 20:05 99 Room Air 05/11/23 20:00 Room Air 05/11/23 18:54 109 05/11/23 15:21 36.8 98 16 119/56 (77) 95 Room Air I & O 05/12/23 06:59 Intake Total 2980 ml Balance 2980 ml Capillary Refill : Less Than 3 Seconds General Appearance: No Apparent Distress HEENT: PERRL/EOMI Neck: Full Range of Motion Respiratory: Decreased Breath Sounds, Wheezing Cardiovascular: Regular Rate, Rhythm Gastrointestinal: soft, tenderness, other (inc clean/dry) Extremity: Normal Capillary Refill Neurologic/Psychiatric: Alert, Oriented x3 Skin: Normal Color Lymphatic: No Adenopathy Results Lab Laboratory Tests 05/12/23 06:00: White Blood Count 10.6, Red Blood Count 2.62L, Hemoglobin 8.4L, Hematocrit 26L, Mean Corpuscular Volume 97, Mean Corpuscular Hemoglobin 32, Mean Corpuscular Hemoglobin Concent 33, Red Cell Distribution Width 13.7, Platelet Count 386, Mean Platelet Volume 10.0, Immature Granulocyte % (Auto) 1, Neutrophils (%) (Auto) 64, Lymphocytes (%) (Auto) 18, Monocytes (%) (Auto) 12, Eosinophils (%) (Auto) 4, Basophils (%) (Auto) 0, Neutrophils # (Auto) 6.7, Lymphocytes # (Auto) 1.9, Monocytes # (Auto) 1.3H, Eosinophils # (Auto) 0.5H, Basophils # (Auto) 0.0, Immature Granulocyte # (Auto) 0.2H, Sodium Level 139, Potassium Level 3.7, Chloride Level 108H, Carbon Dioxide Level 20L, Anion Gap 11, Blood Urea Nitrogen 5L, Creatinine 0.70, Estimat Glomerular Filtration Rate 92, BUN/Creatinine Ratio 7, Glucose Level 109H, Calcium Level 8.0L, Corrected Calcium 8.7, Phosphorus Level 1.9L, Total Bilirubin 0.4, Aspartate Amino Transf (AST/SGOT) 48H, Alanine Aminotransferase (ALT/SGPT) 25, Alkaline Phosphatase 67, Total Protein 5.6L, Albumin 3.1L Microbiology 05/07/23 Blood Culture - Preliminary, Resulted 05/07/23 MRSA Screen - Final, Complete MRSA not isolated 05/03/23 Urine Culture - Final, Complete Enterobacter cloacae complex Assessment/Plan Assessment/Plan Assess & Plan/Chief Complaint s/p open repair incarcerated ventral abdominal incisional hernia repair with mesh. small subsegmental right lower lobe PE. currently on therapeutic lovenox. doing much better now. having BM's and marla reg diet. patient going home today with . f/u 2weeks. LES JUÁREZ MD May 12, 2023 12:50
[2023-05-12 13:53] VITALS: BP 110/52
--- NOTE | 2023-05-12 15:50 | Discharge Summary ---
Discharge Summary Hospital Course Problems/Diagnosis: (1) Incarcerated ventral hernia Status: Resolved Resolution Date/Time: 05/08/23 @ 13:32 Assessment & Plan: s/p surgical resection, appreciate Surgery recommendations. Tolerating regular diet with regular bowel movements at d/c. (2) Small bowel obstruction Status: Resolved Resolution Date/Time: 05/08/23 @ 13:32 Assessment & Plan: s/p resection, reports passing gas (3) Pulmonary embolism Status: Acute Assessment & Plan: Moved to ICU on 05/07 due to respiratory distress, found to have PE, started on treatment dose enoxaparin, now weaned to room air, transferred to med/surg 05/11 started Eliquis and stopped enoxaparin Qualifiers: Qualified Codes: I26.94 - Multiple subsegmental pulmonary emboli without acute cor pulmonale (4) Essential hypertension Status: Chronic Assessment & Plan: BP controlled on home meds. (5) (HFpEF) heart failure with preserved ejection fraction Status: Chronic Assessment & Plan: Cardiology consulted, echo EF 55-65%, mild mitral regurg, mild aortic stenosis, mild LA dilation Qualifiers: Qualified Codes: I50.32 - Chronic diastolic (congestive) heart failure (6) Anemia Status: Acute Assessment & Plan: Suspect anemia related to surgery, acute illness and blood draws. Stable, monitor. Qualifiers: Qualified Codes: D62 - Acute posthemorrhagic anemia (7) Hypophosphatemia Status: Acute Assessment & Plan: Replaced (8) Hypomagnesemia Status: Acute Assessment & Plan: Replaced (9) Hyperchloremic metabolic acidosis Status: Acute Assessment & Plan: Anticipate improvement when able to take oral adequately and off of IV fluid. Hospital Course Date of Admission: May 03, 2023 at 21:57 Admission Diagnosis : Family Physician/Provider: Mica Portillo Aprn Date of Discharge: 05/12/23 Discharge Diagnosis: See problem list Hospital Course: See problem list Labs and Pending Lab Test: Laboratory Tests 05/12/23 06:00: White Blood Count 10.6, Red Blood Count 2.62L, Hemoglobin 8.4L, Hematocrit 26L, Mean Corpuscular Volume 97, Mean Corpuscular Hemoglobin 32, Mean Corpuscular Hemoglobin Concent 33, Red Cell Distribution Width 13.7, Platelet Count 386, Mean Platelet Volume 10.0, Immature Granulocyte % (Auto) 1, Neutrophils (%) (Auto) 64, Lymphocytes (%) (Auto) 18, Monocytes (%) (Auto) 12, Eosinophils (%) (Auto) 4, Basophils (%) (Auto) 0, Neutrophils # (Auto) 6.7, Lymphocytes # (Auto) 1.9, Monocytes # (Auto) 1.3H, Eosinophils # (Auto) 0.5H, Basophils # (Auto) 0.0, Immature Granulocyte # (Auto) 0.2H, Sodium Level 139, Potassium Level 3.7, Chloride Level 108H, Carbon Dioxide Level 20L, Anion Gap 11, Blood Urea Nitrogen 5L, Creatinine 0.70, Estimat Glomerular Filtration Rate 92, BUN/Creatinine Ratio 7, Glucose Level 109H, Calcium Level 8.0L, Corrected Calcium 8.7, Phosphorus Level 1.9L, Total Bilirubin 0.4, Aspartate Amino Transf (AST/SGOT) 48H, Alanine Aminotransferase (ALT/SGPT) 25, Alkaline Phosphatase 67, Total Protein 5.6L, Albumin 3.1L Microbiology 05/07/23 Blood Culture - Preliminary, Resulted 05/07/23 MRSA Screen - Final, Complete MRSA not isolated 05/03/23 Urine Culture - Final, Complete Enterobacter cloacae complex Home Meds Active Eliquis (Apixaban) 5 Mg Tablet 0 PO UD 10 mg twice daily on 05/12 and 05/13, then 5 mg twice daily Hydrocodone-Acetamin 7.5-325 (Hydrocodone/Acetaminophen) 7.5 Mg-325 Mg Tablet 1 Each PO Q4H PRN Reported Benadryl Allergy (Diphenhydramine HCl) 25 Mg Tablet 50 Mg PO DAILY TAKES 2 (25MG) TABS Tylenol Extra Strength (Acetaminophen) 500 Mg Tablet 1,000 Mg PO Q8H PRN TAKES 2 (500MG) TABS Turmeric 500 mg Capsule (Turmeric/Turmeric Root Extract) 450 Mg-50 Mg Capsule 2 Each PO 1200 Tylenol Pm Ex-Strength Caplet (Acetaminophen/Diphenhydramine) 500 Mg-25 Mg Tablet 3 Each PO HS TAKES 3 TABS Fish Oil 1,200 mg Fish Oil (Fish Oil/Dha/Epa) 1,200 Mg-144 Mg-216 Mg Capsule 1 Each PO DAILY Calcium (Calcium Carbonate) 600 Mg Calcium (1500 Mg) Tablet 600 Mg PO DAILY Vitamin D3 (Cholecalciferol (Vitamin D3)) 50 Mcg (2000 Unit) Tablet 50 Mcg PO DAILY Vitamin B-12 (Cyanocobalamin (Vitamin B-12)) 1,000 Mcg Capsule 1,000 Mcg PO DAILY Vitamin C (Ascorbate Calcium) 500 Mg Tablet 500 Mg PO DAILY Zinc (Zinc Sulfate) 50 Mg Zinc (220 Mg) Tablet 50 Mg PO DAILY Metoprolol Succinate 50 Mg Tab.er.24h 50 Mg PO DAILY Atorvastatin Calcium 10 Mg Tablet 10 Mg PO DAILY Potassium Chloride 20 Meq Tab.er.prt 20 Meq PO DAILY Hydrochlorothiazide 25 Mg Tablet 25 Mg PO HS Duloxetine HCl 60 Mg Capsule.dr 60 Mg PO 1200 Lisinopril 20 Mg Tablet 40 Mg PO DAILY TAKES 2 (20MG) TABS Assessment/Pt DC Instructions Follow up with Dr. Monroy as directed. Follow up with primary doctor within a week of discharge. Discharge Diet: No Restrictions Activity as Tolerated: Yes Discharge Physical Examination Allergies: Coded Allergies: No Known Drug Allergies (Unverified , 01/09/15) General Appearance: No Apparent Distress, WD/WN Cardiovascular: Regular Rate, Rhythm, No Murmur Gastrointestinal: Normal Bowel Sounds, Soft, Other (appropriately ttp) Extremity: Pedal Edema Skin: Warm/Dry Neurologic/Psychiatric: Alert, Normal Mood/Affect MENDY IYER MD May 12, 2023 15:50
== END 2023-05-12 13:56 | disposition home health service (06) | DRG 353 ==
LOC: EDUNIT# 19:26 → ER 19:29 → 4TH 21:57 → ICU 05-07 12:26 → 4TH 05-09 18:30
PROVIDERS: ADMIT Surgery; ATTEND Surgery
PROC: 0WUF0JZ Supplement Abdominal Wall with Synthetic Substitute, Open Approach (ICD-10-PCS; principal; 2023-05-04 17:26)
DX: K43.0 Incisional hernia with obstruction, without gangrene (principal); I26.99 Other pulmonary embolism without acute cor pulmonale; J18.9 Pneumonia, unspecified organism; J96.01 Acute respiratory failure with hypoxia; I50.32 Chronic diastolic (congestive) heart failure; N39.0 Urinary tract infection, site not specified; E87.20 Acidosis, unspecified; Z68.42 Body mass index [BMI] 45.0-49.9, adult; E66.01 Morbid (severe) obesity due to excess calories; E78.00 Pure hypercholesterolemia, unspecified; M19.90 Unspecified osteoarthritis, unspecified site; G43.909 Migraine, unspecified, not intractable, without status migrainosus; G89.29 Other chronic pain; M54.9 Dorsalgia, unspecified; R53.81 Other malaise; I11.0 Hypertensive heart disease with heart failure; D72.829 Elevated white blood cell count, unspecified; D64.9 Anemia, unspecified; E83.39 Other disorders of phosphorus metabolism; E83.42 Hypomagnesemia; I25.10 Atherosclerotic heart disease of native coronary artery without angina pectoris; E87.8 Other disorders of electrolyte and fluid balance, not elsewhere classified; I65.23 Occlusion and stenosis of bilateral carotid arteries
CPT/HCPCS: 36415; 36600; 71045; 71275; 74022; 74174; 74177; 80048; 80053; 81000; 82805; 82947; 83605; 83690; 83735; 83880; 84100; 84484; 85007; 85025; 85027; 85610; 85730; 87040; 87077; 87081; 87088; 87186; 88302; 93005; 93306; 94640; 94660; 94760; 96361; 96365; 96375